=== PATIENT | male | born 1990 | race Caucasian/White ===

== ENCOUNTER 2021-12-06 15:24 | Inpatient (IN) ==
[2021-12-06 16:03] LABS: Basophils # (auto) 0.02 K/uL (0-0.2); Basophils % (auto) 0.4 %; Eosinophils # (auto) 0.02 K/uL (0-0.5); Eosinophils % (auto) 0.4 %; Hemoglobin 14.9 g/dL (14.0-18.0); Immature Granulocytes # (auto) 0.02 K/uL (0.00-0.02); Immature Granulocytes % (auto) 0.4 %; Lymphocytes # (auto) 0.77 K/uL (1.2-3.4); Lymphocytes % (auto) 13.5 %; Mean Corpuscular Hemoglobin 30.9 pg (25-34); Mean Corpuscular Hgb Conc 33.9 g/dL (32-36); Mean Corpuscular Volume 91.3 fL (80-100); Mean Platelet Volume 11.1 fL (7.4-10.4); Monocytes # (auto) 0.66 K/uL (0.11-0.59); Monocytes % (auto) 11.6 %; Neutrophils # (auto) 4.21 K/uL (1.4-6.5); Neutrophils % (auto) 73.7 %; Platelet Count 260 K/uL (130-400); RDW Coefficient of Variation 13.6 % (11.5-14.5); RDW Standard Deviation 45.4 fL (36.4-46.3); Red Blood Count 4.82 M/uL (4.7-6.1)
[2021-12-06] MEDS ORDERED: SODIUM CHLORIDE 0.9% 1000ML 1,000 ML IV ONE (16:13)
[2021-12-06 16:14] LABS: INR 1.2 (0.9-1.1); Partial Thromboplastin Ratio 1.2; Partial Thromboplastin Time 32.2 Seconds (21.0-31.0); Prothrombin Time 12.4 Seconds (9.0-12.0)
--- NOTE | 2021-12-06 16:23 | Emergency Department Note ---
Impression & Plan Precordial chest pain, Pericarditis, Tachycardia, Elevated liver enzymes ED Provider Note NAME: ANDERSON MEZA AGE: 31 SEX: M : 1990 ARRIVES VIA: Walk-In INFORMANT: [Patient][family] ED PROVIDER(S): [Silvio Smith MD] CHIEF COMPLAINT: Chest pain HISTORY OF PRESENT ILLNESS: Patient is a 31-year-old male who presents to the ER with about 20 to 21 hours of upper central chest pain that radiates to his neck. It is a tightness that is maybe a 4 on a scale 1 out of 10. He initially thought it was heartburn but its been constant and has not improved. He notices worsening of the pain to bend over or if he takes a deep breath. He is not short of breath. There has been no cough or congestion. No fever. No vomiting or diarrhea. The patient does have sclerosing cholangitis. He is scheduled to have his bile ducts dilated in about 3 weeks. The patient states he has noticed some mild jaundice, this happens when his ducts are due to be dilated. Patient has no history of DVT or PE, there has been no long travel by plane or train or car. He has no history personally of reflux however, his family has a history of reflux. The patient took a home COVID test this morning, it was negative. REVIEW OF SYSTEMS: See HPI for pertinent positives and negatives. A total of ten systems were reviewed and were otherwise negative. PMHx/PSHx: See Below SOCIAL HISTORY: See Below. PHYSICAL EXAM: GENERAL: Patient is in no acute distress. HEENT: No acute trauma, normocephalic atraumatic, mucous membranes moist, no nasal congestion. NECK: No stridor, no adenopathy, no meningismus, trachea is midline. LUNGS: Clear to auscultation bilaterally, no wheeze, no rhonchi, breath sounds equal. HEART: Tachycardic, regular rhythm, no murmurs. Chest: Nontender chest wall ABDOMEN: Soft, nontender, bowel sounds positive, no peritonitis. EXTREMITIES: No cyanosis or edema, full range of motion of all the joints without pain or difficulty, no signs for acute trauma. NEUROLOGIC: Oriented x 3, no acute motor or sensory deficits, no focal weakness. SKIN: No rash, mild jaundice, no diaphoresis. DIFFERENTIAL DIAGNOSIS: Cardiac ischemia, aortic dissection, pulmonary embolism, pneumothorax, pneumonia, pericarditis, myocarditis, esophageal rupture, GERD, cholecystitis, pancreatitis, musculoskeletal, as well as other pathologies. EMERGENCY DEPARTMENT COURSE/PROCEDURES: ECG: Indication was chest pain. The ECG shows a sinus tachycardia with a rate of 136. There is some nonspecific ST change likely from the faster rate. I do believe there is some OH depression. No PVCs. The QTc is 427 Continuous Cardiac Monitoring: An order was placed for continuous cardiac monit oring. The monitor shows a rate of 136 with sinus tachycardia. Critical Care Note: I have personally spent 48 minutes of critical care time in the direct management of this patient. This includes bedside care, interpretation of diagnostic studies, and testing, discussion with consultants, patient, and family members, and other required patient management activities. This 48 minutes is in excess of all separately billable procedures. MEDICAL DECISION MAKING: There is no leukocytosis or worrisome anemia. There is a normal platelet count. Sed rate is high at 65. CRP is elevated. INR is slightly high at 1.2. No renal failure. No significant electrolyte abnormality. Liver enzymes are elevated consistent with his sclerosing cholangitis diagnosis. ECG shows a sinus tachycardia, there is diffuse OH depression consistent with potential pericarditis. Cardiac enzyme testing x1 is not consistent with acute cardiac injury. No evidence for pancreatitis. No evidence for thyroid dysfunction. COVID test was negative. Chest film did not show pneumonia, CHF or cardiomegaly. Chest CT does not show PE, aortic dissection or pericardial effusion. On exam, the patient was tachycardic, his chest pain was not reproducible. Patient received IV saline, 1 L. He has been resting comfortably. I discussed the case with cardiology on-call, Dr. Armenta. The patient is being hospitalized for further work-up. Dr. Armenta did see the patient here in the ED. I spoke with the patient and the family. Further testing and care in the hospital is warranted. I did speak with case management, the on-call hospitalist was consulted. Past Med/Surg History Medical History Back pain Diarrhea Elevated LFTs Fecal urgency Frequent bowel movements Osteoporosis PSC (primary sclerosing cholangitis) Ulcerative colitis Unintentional weight loss Surgical History History of cholecystectomy History of colonoscopy History of ERCP History of esophagogastroduodenoscopy (EGD) History of oral surgery bone graft with dental implant History of wisdom tooth extraction Family History Grandmother Diabetes Other No family history of adverse response to anesthesia Social History Smoking Status: Never smoker Second Hand Exposure: No; Hx Alcohol Use: No Hx Substance Use: No Preferred Language: Kenyan Communication Ability: Effective Office Services Manager Required: No Beliefs That Will Affect Care: None Current Living Situation: Family Feels Safe at Home: Yes Assistive Devices: None Allergies Allergies Allergy/AdvReac Type Severity Reaction Status Date / Time No Known Allergies Allergy Verified 12/06/21 15:56 Home Meds Home Medications Medication Instructions Recorded Confirmed cetirizine 10 mg tablet 10 mg PO QAM 10/17/20 12/06/21 adalimumab 40 mg/0.8 mL 40 mg SUBCUT DIRECTED 01/05/21 12/06/21 subcutaneous pen kit (Humira Pen) cholecalciferol (vitamin D3) 125 125 mcg PO WK 01/05/21 12/06/21 mcg (5,000 unit) tablet (Vitamin D3) ursodiol 250 mg tablet 250 mg PO BID 01/05/21 12/06/21 Calcium 600 600 mg PO QAM 12/06/21 12/06/21 Results & Data (ED) Vital Signs Vital Signs - 24 hr 12/06/21 15:26 12/06/21 15:37 12/06/21 16:01 Temperature 37.4 C Temperature Source Temporal Artery Scan Pulse Rate 140 H 125 H Respiratory Rate 16 18 Respiratory Effort / Characteristics Non-Labored Spontaneous Accessory Muscle Use Respiratory Depth Normal Blood Pressure 125/79 163/94 H Blood Pressure Mean 94 117 Pulse Oximetry 97 98 Oxygen Delivery Method Room Air Room Air Sepsis Recent Fever Within 48 Hours No Sepsis New/Unexplained Change in Mental Status No Sepsis Action Taken by Nursing No Action Required 12/06/21 16:30 12/06/21 17:00 12/06/21 18:00 Temperature Temperature Source Pulse Rate 116 H 116 H 119 H Respiratory Rate 17 15 Respiratory Effort / Characteristics Respiratory Depth Blood Pressure 120/81 121/80 Blood Pressure Mean 94 93 Pulse Oximetry 95 98 99 Oxygen Delivery Method Sepsis Recent Fever Within 48 Hours Sepsis New/Unexplained Change in Mental Status Sepsis Action Taken by Nursing 12/06/21 18:32 12/06/21 18:40 Temperature Temperature Source Pulse Rate 128 H 124 H Respiratory Rate 16 Respiratory Effort / Characteristics Respiratory Depth Blood Pressure 126/86 Blood Pressure Mean 150 99 Pulse Oximetry 98 98 Oxygen Delivery Method Room Air Sepsis Recent Fever Within 48 Hours Sepsis New/Unexplained Change in Mental Status Sepsis Action Taken by [facility] Medications Current Medication List: was personally reviewed by me Laboratory Data Attestation: I reviewed the patient's lab results. Result diagrams: 12/06/21 15:45 12/06/21 15:45 Lab Results 12/06/21 12/06/21 12/06/21 Range/Units 15:45 15:45 15:45 WBC 5.70 (4.8-10.8) K/uL RBC 4.82 (4.7-6.1) M/uL Hgb 14.9 (14.0-18.0) g/dL Hct 44.0 (42-52) % MCV 91.3 (80-100) fL MCH 30.9 (25-34) pg MCHC 33.9 (32-36) g/dL RDW Std Deviation 45.4 (36.4-46.3) fL RDW Coeff of Farzana 13.6 (11.5-14.5) % Plt Count 260 (130-400) K/uL MPV 11.1 H (7.4-10.4) fL Immature Gran % (Auto) 0.4 % Neut % (Auto) 73.7 % Lymph % (Auto) 13.5 % Elliott % (Auto) 11.6 % Eos % (Auto) 0.4 % Baso % (Auto) 0.4 % Neut # (Auto) 4.21 (1.4-6.5) K/uL Lymph # (Auto) 0.77 L (1.2-3.4) K/uL Elliott # (Auto) 0.66 H (0.11-0.59) K/uL Eos # (Auto) 0.02 (0-0.5) K/uL Baso # (Auto) 0.02 (0-0.2) K/uL Immature Gran # (Auto) 0.02 (0.00-0.02) K/uL ESR (0-15) mm/hr PT 12.4 H (9.0-12.0) Seconds INR 1.2 H (0.9-1.1) APTT 32.2 H (21.0-31.0) Seconds PTT Ratio 1.2 Sodium 136 (136-145) mmol/L Potassium 3.5 (3.5-5.1) mmol/L Chloride 99 (98-107) mmol/L Carbon Dioxide 27 (21-32) mmol/L Anion Gap 10 (3-11) BUN 10 (6-23) mg/dl Creatinine 0.90 (0.6-1.4) mg/dl Est Cr Clr Drug Dosing 110.2 ml/min Est GFR ( Amer) 130.5 ml/min Est GFR (Non-Af Amer) 112.6 ml/min BUN/Creatinine Ratio 11.1 (10-20) Glucose 84 (70-99(Fasting)) mg/dl Calcium 10.2 H (8.5-10.1) mg/dl Magnesium (1.7-2.4) mg/dl Total Bilirubin 2.9 H (0.2-1.0) mg/dl AST 128 H (13-39) U/L ALT 188 H (7-52) U/L Alkaline Phosphatase 671 H (34-104) U/L Troponin I High Sens 8.1 (0-20) pg/ml C-Reactive Protein (0-0.5) mg/dl Total Protein 9.0 H (6.0-8.3) gm/dl Albumin 4.4 (3.4-5.0) gm/dl Globulin 4.6 H (2.5-4.0) gm/dl Albumin/Globulin Ratio 1.0 (0.9-2) Lipase (11-82) U/L TSH (0.300-4.500) uIu/ml SARS-CoV-2, RNA, NAAT (NEGATIVE) 12/06/21 12/06/21 12/06/21 Range/Units 15:45 15:45 15:45 WBC (4.8-10.8) K/uL RBC (4.7-6.1) M/uL Hgb (14.0-18.0) g/dL Hct (42-52) % MCV (80-100) fL MCH (25-34) pg MCHC (32-36) g/dL RDW Std Deviation (36.4-46.3) fL RDW Coeff of Farzana (11.5-14.5) % Plt Count (130-400) K/uL MPV (7.4-10.4) fL Immature Gran % (Auto) % Neut % (Auto) % Lymph % (Auto) % Elliott % (Auto) % Eos % (Auto) % Baso % (Auto) % Neut # (Auto) (1.4-6.5) K/uL Lymph # (Auto) (1.2-3.4) K/uL Elliott # (Auto) (0.11-0.59) K/uL Eos # (Auto) (0-0.5) K/uL Baso # (Auto) (0-0.2) K/uL Immature Gran # (Auto) (0.00-0.02) K/uL ESR 65 H (0-15) mm/hr PT (9.0-12.0) Seconds INR (0.9-1.1) APTT (21.0-31.0) Seconds PTT Ratio Sodium (136-145) mmol/L Potassium (3.5-5.1) mmol/L Chloride (98-107) mmol/L Carbon Dioxide (21-32) mmol/L Anion Gap (3-11) BUN (6-23) mg/dl Creatinine (0.6-1.4) mg/dl Est Cr Clr Drug Dosing ml/min Est GFR ( Amer) ml/min Est GFR (Non-Af Amer) ml/min BUN/Creatinine Ratio (10-20) Glucose (70-99(Fasting)) mg/dl Calcium (8.5-10.1) mg/dl Magnesium 2.0 (1.7-2.4) mg/dl Total Bilirubin (0.2-1.0) mg/dl AST (13-39) U/L ALT (7-52) U/L Alkaline Phosphatase (34-104) U/L Troponin I High Sens (0-20) pg/ml C-Reactive Protein 4.77 H (0-0.5) mg/dl Total Protein (6.0-8.3) gm/dl Albumin (3.4-5.0) gm/dl Globulin (2.5-4.0) gm/dl Albumin/Globulin Ratio (0.9-2) Lipase 12 (11-82) U/L TSH 1.605 (0.300-4.500) uIu/ml SARS-CoV-2, RNA, NAAT (NEGATIVE) 12/06/21 Range/Units 16:45 WBC (4.8-10.8) K/uL RBC (4.7-6.1) M/uL Hgb (14.0-18.0) g/dL Hct (42-52) % MCV (80-100) fL MCH (25-34) pg MCHC (32-36) g/dL RDW Std Deviation (36.4-46.3) fL RDW Coeff of Farzana (11.5-14.5) % Plt Count (130-400) K/uL MPV (7.4-10.4) fL Immature Gran % (Auto) % Neut % (Auto) % Lymph % (Auto) % Elliott % (Auto) % Eos % (Auto) % Baso % (Auto) % Neut # (Auto) (1.4-6.5) K/uL Lymph # (Auto) (1.2-3.4) K/uL Elliott # (Auto) (0.11-0.59) K/uL Eos # (Auto) (0-0.5) K/uL Baso # (Auto) (0-0.2) K/uL Immature Gran # (Auto) (0.00-0.02) K/uL ESR (0-15) mm/hr PT (9.0-12.0) Seconds INR (0.9-1.1) APTT (21.0-31.0) Seconds PTT Ratio Sodium (136-145) mmol/L Potassium (3.5-5.1) mmol/L Chloride (98-107) mmol/L Carbon Dioxide (21-32) mmol/L Anion Gap (3-11) BUN (6-23) mg/dl Creatinine (0.6-1.4) mg/dl Est Cr Clr Drug Dosing ml/min Est GFR ( Amer) ml/min Est GFR (Non-Af Amer) ml/min BUN/Creatinine Ratio (10-20) Glucose (70-99(Fasting)) mg/dl Calcium (8.5-10.1) mg/dl Magnesium (1.7-2.4) mg/dl Total Bilirubin (0.2-1.0) mg/dl AST (13-39) U/L ALT (7-52) U/L Alkaline Phosphatase (34-104) U/L Troponin I High Sens (0-20) pg/ml C-Reactive Protein (0-0.5) mg/dl Total Protein (6.0-8.3) gm/dl Albumin (3.4-5.0) gm/dl Globulin (2.5-4.0) gm/dl Albumin/Globulin Ratio (0.9-2) Lipase (11-82) U/L TSH (0.300-4.500) uIu/ml SARS-CoV-2, RNA, NAAT NEGATIVE (NEGATIVE) Administered Medications Discontinued Medications Sodium Chloride (Nss 1000ml) 1,000 mls @ 999 mls/hr IV .Q1H1M ONE Stop: 12/06/21 17:13 Last Infusion: 12/06/21 17:23 Dose: 0 mls/hr Documented by: [id number] Admin: 12/06/21 16:22 Dose: 999 mls/hr Documented by: [id number] Ioversol (Optiray 320 125ml) 120 ml IV ONCE ONE Stop: 12/06/21 16:41 Last Admin: 12/06/21 16:42 Dose: 120 ml Documented by: [id number] Methylprednisolone (Methylprednisolone 125 Mg/2 Ml Vial) 60 mg IV NOW STA Stop: 12/06/21 18:47 Last Admin: 12/06/21 18:54 Dose: 60 mg Documented by: [id number] Imaging Data Radiologist's Impression: Chest X-Ray 12/06/21 15:50 SINGLE VIEW CHEST CLINICAL HISTORY: Atypical chest pain. FINDINGS: An AP, portable, upright chest radiograph is obtained. No prior studies are available for comparison at the time of dictation. The cardiomedi astinal silhouette is unremarkable. The lungs and pleural spaces are clear. No pneumothorax is seen. The bony thorax is grossly intact. Cholecystectomy clips are noted in the right upper quadrant. IMPRESSION: No active disease in the chest. ACT 112: Negative or not required by law. Electronically signed by: Silvio Moore M.D. 12/06/2021 4:39 PM Chest CTA 12/06/21 16:13 CT ANGIOGRAM OF THE CHEST CLINICAL HISTORY: Atypical chest pain. COMPARISON STUDY: Chest x-ray performed the same day 12/06/2021. TECHNIQUE: Following the IV administration of 120 cc of Optiray 320, CT angiogram of the chest was performed from the upper abdomen to the thoracic inlet utilizing the pulmonary embolus protocol. Images are reviewed in the axial, sagittal, and coronal planes. 3-D MIPS images are created and assessed. IV contrast was administered without complication. A dose lowering technique was utilized adhering to the principles of ALARA. CT DOSE: 257.19 mGy.cm FINDINGS: Thyroid: Imaged portions of the thyroid gland are normal in size and attenuation . Thoracic aorta: The thoracic aorta is normal in caliber and demonstrates standard 3-vessel arch anatomy. No dissection is seen. Pulmonary vasculature: The pulmonary trunk is normal in caliber. There are no filling defects identified in main, lobar, or segmental pulmonary branches to suggest pulmonary embolus. Heart: The heart is normal in size and without pericardial effusion. Lungs and pleural spaces: The lungs and pleural spaces are clear. Mediastinum: There is no mediastinal lymphadenopathy. Valentina: Clear. Axillae: There is no axillary lymphadenopathy. Upper abdomen: Partially visualized upper abdominal viscera is within normal limits. Skeletal structures: There is a minimal chronic appearing superior endplate compression deformity of T7. No lytic or blastic bony lesions are seen. IMPRESSION: 1. There is no evidence of pulmonary embolus in the main, lobar, or segmental pulmonary arteries. 2. The lungs are clear. ACT 112: Negative or not required by law. Electronically signed by: Silvio Moore M.D. 12/06/2021 5:05 PM Discharge Plan Visit Data Chief Complaint: Chest Pain Stated Complaint: CHEST PAIN, TIGHT CHEST ED Provider: Silvio Smith Discharge Problem: Precordial chest pain, Pericarditis, Tachycardia, Elevated liver enzymes Patient Disposition: Admitted As Inpatient Condition: Fair Forms Stand Alone Forms: [facility] [place] [employer] Prescriptions Prescriptions: No Action cetirizine 10 mg Tablet 10 mg PO QAM RF: 0 Calcium 600 600 MG 600 mg PO QAM RF: 0 ursodiol 250 mg Tablet 250 mg PO BID RF: 0 Humira Pen 40 mg/0.8 mL Pen Injector Kit 40 mg SUBCUT DIRECTED RF: 0 cholecalciferol (vitamin D3) [Vitamin D3] 125 mcg (5,000 unit) Tablet 125 mcg PO WK RF: 0 Referrals Referrals: Michael Branch DO [Primary Care Provider] -
[2021-12-06 16:26] LABS: Albumin Level 4.4 gm/dl (3.4-5.0); BUN Creatinine Ratio 11.1 (10-20); Bilirubin,Total 2.9 mg/dl (0.2-1.0); Calcium 10.2 mg/dl (8.5-10.1); Creatinine Clr Calc Pharmacy 110.2 ml/min; Est GFR (African American) 130.5 ml/min; Est GFR (Non-African American) 112.6 ml/min; Globulin 4.6 gm/dl (2.5-4.0); Potassium 3.5 mmol/L (3.5-5.1)
[2021-12-06 16:29] LABS: Troponin I High Sensitivity 8.1 pg/ml (0-20)
[2021-12-06] MEDS ORDERED: OPTIRAY 320 125ml IV ONE (16:40)
--- NOTE | 2021-12-06 16:41 | XRay Report ---
SINGLE VIEW CHEST CLINICAL HISTORY: Atypical chest pain. FINDINGS: An AP, portable, upright chest radiograph is obtained. No prior studies are available for c omparison at the time of dictation. The cardiomediastinal silhouette is unremarkable. The lungs and pleural spaces are clear. No pneumothorax is seen. The bony thorax is grossly intact. Cholecystectomy clips are noted in the right upper quadrant. IMPRESSION: No active disease in the chest. ACT 112: Negative or not required by law. Electronically signed by: Silvio Moore M.D. 12/06/2021 4:39 PM
[2021-12-06 17:01] LABS: C Reactive Protein 4.77 mg/dl (0-0.5)
--- NOTE | 2021-12-06 17:08 | CT Scan Report ---
CT ANGIOGRAM OF THE CHEST CLINICAL HISTORY: Atypical chest pain. COMPARISON STUDY: Chest x-ray performed the same day 12/06/2021. TECHNIQUE: Following the IV administration of 120 cc of Optiray 320, CT angiogram of the chest was pe rformed from the upper abdomen to the thoracic inlet utilizing the pulmonary embolus protocol. Images are reviewed in the axial, sagittal, and coronal planes. 3-D MIPS images are created and assessed. I V contrast was administered without complication. A dose lowering technique was utilized adhering to the principles of ALARA. CT DOSE: 257.19 mGy.cm FINDINGS: Thyroid: Imaged portions of the thyroid gland are normal in size and attenuation. Thoracic aorta: The thoracic aorta is normal in caliber and demonstrates standard 3-vessel arch anato my. No dissection is seen. Pulmonary vasculature: The pulmonary trunk is normal in caliber. There are no filling defects identif ied in main, lobar, or segmental pulmonary branches to suggest pulmonary embolus. Heart: The heart is normal in size and without pericardial effusion. Lungs and pleural spaces: The lungs and pleural spaces are clear. Mediastinum: There is no mediastinal lymphadenopathy. Valentina: Clear. Axillae: There is no axillary lymphadenopathy. Upper abdomen: Partially visualized upper abdominal viscera is within normal limits. Skeletal structures: There is a minimal chronic appearing superior endplate compression deformity of T7. No lytic or blastic bony lesions are seen. IMPRESSION: 1. There is no evidence of pulmonary embolus in the main, lobar, or segmental pulmonary arteries. 2. The lungs are clear. ACT 112: Negative or not required by law. Electronically signed by: Silvio Moore M.D. 12/06/2021 5:05 PM
[2021-12-06] MEDS ORDERED: methylPREDNISolone 125 MG/2 ML VIAL IV STA (18:46)
--- NOTE | 2021-12-06 19:09 | Cardiology Consultation ---
Date of Consultation December 06, 2021 Assessment & Plan (1) Pericarditis: (2) PSC (primary sclerosing cholangitis): -Patient's underlying history of primary sclerosing cholangitis makes him a poor candidate for nonsteroidal anti-inflammatory use or high-dose aspirin use. We will therefore proceed with corticosteroids, starting with methylprednisolone 60 mg IV now. Would proceed with prednisone 40 mg starting tomorrow 12/07/2021, as well as Protonix for GI prophylaxis. Caution recommended with regards to dosing colchicine in the setting of hepatic dysfunction. I think however it be most prudent to await GI input prior to starting this medication, I would recommend gastroenterology consultation tomorrow as his liver function tests are higher than typical baseline for him. Proceed with echocardiogram. Would repeat his EKG once his heart rate improves for further anaylysis of the ST segments. History of Present Illness History of Present Illness Abelino Jara is a 31 year old male seen in cardiology consultation per the request of Dr Smith for the evaluation of chest discomfort. Pt seen in ED room B5. He is accompanied by his father, Kali. Abelino has a history of ulcerative colitis and primary sclerosing cholangitis for which he follows with Dr. Bello of [facility]. His medications include Hurmira. His most recent ERCP had been on 01/16/21 in which time a biliary sphincterotomy had been performed as well as dilatation of the common bile duct and the hepatic ducts. The patient was in his normal state of health until last evening at approximately 7 or 8 PM when he started noticing chest tightness, worse with deep inspiration and with lying flat. He had difficulty finding any position that was comfortable for sleeping. His symptoms persisted all day today, ultimately prompting presentation to the emergency room. EKG performed at 1537 revealed sinus tachycardia 136 bpm, with diffuse J-point elevation consistent with possible early repolarization or pericarditis. The ST segments are somewhat difficult to interpret due to the underlying sinus tachycardia. At bedtime troponin within normal limits x1. CT angiogram revealed no evidence of pulmonary embolism. No pericardial effusion. Laboratory assessment otherwise notable for elevated ESR at 65 mm/h, C-reactive protein 4.77 mg/dL total bilirubin 1.9, AST 128, ALT 188, alkaline phosphatase 671. MRI of the liver had been performed earlier this month as an outpatient 11/12/2021 with stable findings with beaded appearance of the intrahepatic biliary ducts abdominal lymphadenopathy noted, and patient is tentatively scheduled to undergo upcoming colonoscopy and ultrasound-guided lymph node biopsy. At the time my assessment, the patient was in no acute distress, chest discomfort rating to the base of the neck reproduced on physical exam with deep inspiration. Allergies Allergy/AdvReac Type Severity Reaction Status Date / Time No Known Allergies Allergy Verified 12/06/21 15:56 Home Medications Medication Instructions Recorded Confirmed Type cetirizine 10 mg tablet 10 mg PO QAM 10/17/20 12/06/21 History adalimumab 40 mg/0.8 mL 40 mg SUBCUT DIRECTED 01/05/21 12/06/21 History subcutaneous pen kit (Humira Pen) cholecalciferol (vitamin D3) 125 125 mcg PO WK 01/05/21 12/06/21 History mcg (5,000 unit) tablet (Vitamin D3) ursodiol 250 mg tablet 250 mg PO BID 01/05/21 12/06/21 History Calcium 600 600 mg PO QAM 12/06/21 12/06/21 History Patient History Medical History (Updated 12/06/21 @ 19:06 by John Armenta DO) Back pain Diarrhea Elevated LFTs Fecal urgency Frequent bowel movements Osteoporosis PSC (primary sclerosing cholangitis) Ulcerative colitis Unintentional weight loss Surgical History History of cholecystectomy History of colonoscopy History of ERCP History of esophagogastroduodenoscopy (EGD) History of oral surgery bone graft with dental implant History of wisdom tooth extraction Family History Grandmother Diabetes Other No family history of adverse response to anesthesia Social History Smoking Status: Never smoker Second Hand Exposure: No; Hx Alcohol Use: No Hx Substance Use: No Preferred Language: Icelandic Communication Ability: Effective Grinding Room Inspector Required: No Beliefs That Will Affect Care: None Current Living Situation: Family Feels Safe at Home: Yes Assistive Devices: None Review of Systems Review of Systems: All systems reviewed & are unremarkable except as noted in HPI & below Physical Exam Constitutional: WD/WN, vitals as above Respiratory: normal respiratory effort, lungs clear to auscultation Cardiovascular: RRR, no murmur, no edema Gastrointestinal (Abdomen): normal bowel sounds, soft, nontender, no hepatosplenomegaly Skin: + jaundice Neurologic: PERRL, EOMI, accommodation nl, no face palsy, no dysarthria Results & Data ([facility]) Vital Signs (Past 12 Hours) Vital Signs Temp Pulse Resp BP Pulse Ox 12/06/21 18:40 124 H 16 126/86 98 12/06/21 18:32 128 H 98 12/06/21 18:00 119 H 99 12/06/21 17:00 116 H 15 121/80 98 12/06/21 16:30 116 H 17 120/81 95 12/06/21 16:01 125 H 18 163/94 H 98 12/06/21 15:26 37.4 C 140 H 16 125/79 97
--- NOTE | 2021-12-06 19:11 | History & Physical Report ---
Date of Service December 06, 2021 Assessment & Plan (1) Pericarditis: (2) Elevated LFTs: (3) PSC (primary sclerosing cholangitis): Plan: #. Likely pericarditis in immunosuppressed patient Patient presents with acute onset of chest pain for less than 24 hours prior to arrival. Chest pain sharp in nature with deep breathing and bending forward. Has been constant since onset. 5/10 in intensity. Patient denies any respiratory signs and symptoms recently, patient not aware of any tick bite, no new skin rashes, has been vaccinated against COVID, has been diagnosed with UC and PSC less than a year ago. Admitting CTA chest and CXR with no acute findings. Admitting troponin negative. Admitting EKG with diffuse [place] depression. Cardiology aware, steroid. ECHO. CRP in AM. Patient tachycardic, other vitals normal, continue to monitor over telemetry. GI protection with PPI for the duration of steroid. #. Elevated LFTs #. History of ulcerative colitis #. History of PSC Patient due for ERCP and bile duct dilatation in 3 weeks, follows [facility] gastroenterology Patient reports increasing yellowing lately. Also reports increasing itching. Consult GI, trend CMP. Given diarrheal component from UC, and liver impairment from PSC, colchicine will be best avoided in this case. 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 Per patient, his chest tightness/pain started less than 24 hours ago prior to arrival, has been constant, is sharper in nature when taking deep breath or bending forward, 5/10 at rest and 6/10 with deep breathing/bending over, not associated with fever/diaphoresis/radiation to back, not relieved with Tums, pain spans from lower part of sternum to base of neck anteriorly and patient was not able to sleep due to this pain. Patient denies any runny nose or cough or sore throat or myalgia recently. Patient denies any new skin rashes or awareness of tick bite. Patient denies fever/headache/dizziness/belly pain/SOB. Patient denies any pain or burning while passing urine. Patient does have bowel disturbances because of his ulcerative colitis. Patient is due for ERCP and biliary dilation in 3 weeks, patient follows [facility] gastroenterology. Patient does look icteric, per patient he usually gets icteric when he is due for his bile duct dilatation. Patient also reports worsening itching. Patient denies the use of tobacco/smoking, alcohol/recreational drugs. Patient is referred answer and has [employer] store. Full code. Home medications reviewed with patient, takes Humira biweekly, ursodiol 500 mg in the morning and 250 mg in the evening, calcium and vitamin d tablets, and Zyrtec. Pt is vaccinated against covid, three doses. Patient denies any significant cardiac history in the family, endorses GERD in sister and father, had his grandmom of lung cancer. Allergies Allergy/AdvReac Type Severity Reaction Status Date / Time No Known Allergies Allergy Verified 12/06/21 15:56 Home Medications Medication Instructions Recorded Confirmed Type cetirizine 10 mg tablet 10 mg PO QAM 10/17/20 12/06/21 History adalimumab 40 mg/0.8 mL 40 mg SUBCUT DIRECTED 01/05/21 12/06/21 History subcutaneous pen kit (Humira Pen) cholecalciferol (vitamin D3) 125 125 mcg PO WK 01/05/21 12/06/21 History mcg (5,000 unit) tablet (Vitamin D3) ursodiol 250 mg tablet 250 mg PO BID 01/05/21 12/06/21 History Calcium 600 600 mg PO QAM 12/06/21 12/06/21 History Past Med/Surg History Medical History Back pain Diarrhea Elevated LFTs Fecal urgency Frequent bowel movements Osteoporosis PSC (primary sclerosing cholangitis) Ulcerative colitis Unintentional weight loss Surgical History History of cholecystectomy History of colonoscopy History of ERCP History of esophagogastroduodenoscopy (EGD) History of oral surgery bone graft with dental implant History of wisdom tooth extraction Family History Grandmother Diabetes Other No family history of adverse response to anesthesia Social History Smoking Status: Never smoker Second Hand Exposure: No; Hx Alcohol Use: No Hx Substance Use: No Preferred Language: Japanese Communication Ability: Effective 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 Physical Exam Physical Exam: GENERAL: Alert and oriented x3. NAD, on RA. HEENT: No pallor, + icterus. Pupils equal, round and reactive to light. Oral mucosa moist. NECK: No JVD, no neck masses. HEART: S1 and S2 heard. Tachycardic. No murmur, no gallop. RESPIRATORY SYSTEM: Normal AP diameter. No accessory muscle use. No wheezing, no crackles. ABDOMEN: Soft, bowel sounds present, nontender, no distention. CENTRAL NERVOUS SYSTEM: No facial droop. Speech is clear. Obeys simple comman ds. Moves extremities. EXTREMITIES: No edema, no erythema seen. Results & Data Results & Data ([facility]) Vital Signs (Past 12 Hours) Vital Signs Temp Pulse Resp BP Pulse Ox 12/06/21 18:40 124 H 16 126/86 98 12/06/21 18:32 128 H 98 12/06/21 18:00 119 H 99 12/06/21 17:00 116 H 15 121/80 98 12/06/21 16:30 116 H 17 120/81 95 12/06/21 16:01 125 H 18 163/94 H 98 12/06/21 15:26 37.4 C 140 H 16 125/79 97
[2021-12-06] MEDS ORDERED: PANTOprazole 40 MG TAB PO ONE (21:15)
[2021-12-07] MEDS: ursodioL 300 MG CAP PO SCH ×3 (01:18→20:44)
[2021-12-07] MEDS: HEPARIN SOD 5,000 UNIT/0.5 ML VIAL SQ SCH ×3 (01:19→20:44)
--- NOTE | 2021-12-07 06:32 | Electrocardiogram Report ---
Test Reason : Blood Pressure : / mmHG Vent. Rate : 136 BPM Atrial Rate : 136 BPM P-R Int : 148 ms QRS Dur : 080 ms QT Int : 284 ms P-R-T Axes : 066 077 066 degrees QTc Int : 427 ms Sinus tachycardia Borderline ECG No previous ECGs available Confirmed by Antonino Fong ([id number]) on 12/07/2021 6:32:19 AM Referred By: Sangeeta Bello Confirmed By:Antonino Fong
[2021-12-07 08:20] LABS: Hematocrit (blood only) 40.3 % (42-52); Hemoglobin 13.6 g/dL (14.0-18.0); Mean Corpuscular Hemoglobin 30.5 pg (25-34); Mean Corpuscular Hgb Conc 33.7 g/dL (32-36); Mean Corpuscular Volume 90.4 fL (80-100); Mean Platelet Volume 10.8 fL (7.4-10.4); Platelet Count 226 K/uL (130-400); RDW Coefficient of Variation 13.6 % (11.5-14.5); RDW Standard Deviation 45.2 fL (36.4-46.3); Red Blood Count 4.46 M/uL (4.7-6.1); White Blood Count 5.95 K/uL (4.8-10.8)
[2021-12-07] MEDS: CETIRIZINE HCL 10 MG TABLET PO SCH (08:46)
[2021-12-07] MEDS: CALCIUM CARBONATE 1250MG TAB PO SCH (08:46)
[2021-12-07] MEDS: predniSONE 20 MG TAB PO SCH (08:46)
[2021-12-07] MEDS: PANTOprazole 40 MG TAB PO SCH ×2 (08:47→20:42)
[2021-12-07 08:51] LABS: Alanine Aminotransferase 166 U/L (7-52); Albumin Globulin Ratio 0.9 (0.9-2); Albumin Level 3.9 gm/dl (3.4-5.0); Alkaline Phosphatase 598 U/L (34-104); Anion Gap 10 (3-11); Aspartate Aminotransferase 99 U/L (13-39); BUN Creatinine Ratio 17.5 (10-20); Bilirubin,Total 2.1 mg/dl (0.2-1.0); Blood Urea Nitrogen 11 mg/dl (6-23); C Reactive Protein 9.26 mg/dl (0-0.5); Calcium 9.6 mg/dl (8.5-10.1); Carbon Dioxide 24 mmol/L (21-32); Chloride 104 mmol/L (98-107); Creatinine Clr Calc Pharmacy 157.1 ml/min; Est GFR (African American) > 150.0 ml/min; Est GFR (Non-African American) 130.4 ml/min; Globulin 4.2 gm/dl (2.5-4.0); Glucose 124 mg/dl (70-99(Fasting)); Magnesium 1.9 mg/dl (1.7-2.4); Phosphorus 2.9 mg/dl (2.5-4.9); Potassium 3.7 mmol/L (3.5-5.1); Sodium 138 mmol/L (136-145); Total Protein 8.1 gm/dl (6.0-8.3)
--- NOTE | 2021-12-07 10:20 | Gastrointestinal Consultation ---
Date of Consultation December 07, 2021 Assessment & Plan (1) Elevated liver enzymes: Patient with a mild elevation of his liver enzymes as compared to baseline given his underlying primary sclerosing cholangitis. I would suggest further evaluation with MRCP, we will likely recommend a delayed ERCP once his pericarditis has resolved as there does not appear to be an urgent need for biliary decompression at the present time. Recommendations MRCP ordered Likely outpatient ERCP once pericarditis is resolved If MRCP negative for evidence of stricturing would then recommend other studies such as autoimmune markers and viral serologies (2) PSC (primary sclerosing cholangitis): History of Present Illness Reason for Consultation: Elevated liver tests Requesting Physician: Dr. Butler Attending Physician: Oswald Butler MD History of Present Illness The patient is a 31-year-old male with a history of ulcerative colitis and primary sclerosing cholangitis who was admitted through the emergency room after presenting with complications related to pericarditis. The patient reports that he has had difficulty with deep inspiration for several days in addition to chest discomfort. He notes that since being started on steroids for the pericarditis his symptoms are slowly improving. Patient's history of PSC dates approximately 1 year, he is undergone several ERCPs last of which was performed about 1 year ago at which time dilation was performed of the distal common bile duct left intrahepatic and right intrahepatic ducts. Denies having abdominal pain, nausea, vomiting, pruritus or alteration in his bowel habits. Allergies Allergy/AdvReac Type Severity Reaction Status Date / Time No Known Allergies Allergy Verified 12/06/21 15:56 Home Medications Medication Instructions Recorded Confirmed Type cetirizine 10 mg tablet 10 mg PO QAM 10/17/20 12/06/21 History adalimumab 40 mg/0.8 mL 40 mg SUBCUT DIRECTED 01/05/21 12/06/21 History subcutaneous pen kit (Humira Pen) cholecalciferol (vitamin D3) 125 125 mcg PO WK 01/05/21 12/06/21 History mcg (5,000 unit) tablet (Vitamin D3) ursodiol 250 mg tablet 250 mg PO BID 01/05/21 12/06/21 History Calcium 600 600 mg PO QAM 12/06/21 12/06/21 History Patient History Medical History Back pain Diarrhea Elevated LFTs Fecal urgency Frequent bowel movements Osteoporosis PSC (primary sclerosing cholangitis) Ulcerative colitis Unintentional weight loss Surgical History History of cholecystectomy History of colonoscopy History of ERCP History of esophagogastroduodenoscopy (EGD) History of oral surgery bone graft with dental implant History of wisdom tooth extraction Family History Grandmother Diabetes Other No family history of adverse response to anesthesia Social History Smoking Status: Never smoker Second Hand Exposure: No; Hx Alcohol Use: No Hx Substance Use: No Preferred Language: Slovenian Communication Ability: Effective 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 Beliefs That Will Affect Care: None Current Living Situation: Parent Current Living Situation Comment: lives with mother Feels Safe at Home: Yes Safety Concerns: Feels Safe At This Time Assistive Devices: None Review of Systems Constitutional: no fever, no chills and no sweats Eyes: no diplopia Ear, Nose, Mouth, Throat: no nasal discharge Respiratory: no cough and no dyspnea Cardiovascular: + chest pain and + chest pain with activity; no dyspnea Gastrointestinal: no abdominal pain, no belching, no bloating, no early satiety, no heartburn, no nausea, no vomiting and no coffee ground emesis Genitourinary: no urinary frequency Musculoskeletal: no radicular pain Integumentary: no non-healing lesions Neurologic: no falls and no paralysis Psychiatric: no hopelessness and no change in appetite Endocrine: no polydipsia Hematologic / Lymphatic: no coagulopathy Allergy / Immunological: no lip swelling Physical Exam Constitutional: well nourished and + thin; no acute distress and not ill appearing Eyes: mild icterus ENMT: external ear and nose normal, oropharynx normal Mallampati Class: II Neck: trachea midline, no thyromegaly Respiratory: Auscultation: no crackles, no rales, no rhonchi and no wheezes Cardiovascular: Heart Sounds: no murmur Gastrointestinal (Abdomen): Percussion/Palpation: abdomen soft; abdomen nontender, no guarding and abdomen not rigid Neurologic: Speech / Cognition: normal speech Results & Data ([facility]) Vital Signs (Past 12 Hours) Vital Signs Temp Pulse Pulse Resp BP BP Pulse Ox 12/07/21 03:13 36.6 C 101 H 18 119/79 97 12/07/21 00:00 37.1 C 104 H 96 H 119/81 96 12/06/21 23:30 109 H 109/77 12/06/21 23:00 108 H 113/79 97 12/06/21 22:30 120 H 118/72 Laboratory Results Laboratory Results - last 24 hr 12/06/21 12/06/21 12/06/21 15:45 15:45 15:45 WBC 5.70 RBC 4.82 Hgb 14.9 Hct 44.0 MCV 91.3 MCH 30.9 MCHC 33.9 RDW Std Deviation 45.4 RDW Coeff of Farzana 13.6 Plt Count 260 MPV 11.1 H Immature Gran % (Auto) 0.4 Neut % (Auto) 73.7 Lymph % (Auto) 13.5 [place] % (Auto) 11.6 Eos % (Auto) 0.4 Baso % (Auto) 0.4 Neut # (Auto) 4.21 Lymph # (Auto) 0.77 L [place] # (Auto) 0.66 H Eos # (Auto) 0.02 Baso # (Auto) 0.02 Immature Gran # (Auto) 0.02 ESR PT 12.4 H INR 1.2 H APTT 32.2 H PTT Ratio 1.2 Sodium 136 Potassium 3.5 Chloride 99 Carbon Dioxide 27 Anion Gap 10 BUN 10 Creatinine 0.90 Est Cr Clr Drug Dosing 110.2 Est GFR ( Amer) 130.5 Est GFR (Non-Af Amer) 112.6 BUN/Creatinine Ratio 11.1 Glucose 84 Calcium 10.2 H Phosphorus Magnesium Total Bilirubin 2.9 H AST 128 H ALT 188 H Alkaline Phosphatase 671 H Troponin I High Sens 8.1 C-Reactive Protein Total Protein 9.0 H Albumin 4.4 Globulin 4.6 H Albumin/Globulin Ratio 1.0 Lipase TSH SARS-CoV-2, RNA, NAAT 12/06/21 12/06/21 12/06/21 15:45 15:45 15:45 WBC RBC Hgb Hct MCV MCH MCHC RDW Std Deviation RDW Coeff of Farzana Plt Count MPV Immature Gran % (Auto) Neut % (Auto) Lymph % (Auto) [place] % (Auto) Eos % (Auto) Baso % (Auto) Neut # (Auto) Lymph # (Auto) [place] # (Auto) Eos # (Auto) Baso # (Auto) Immature Gran # (Auto) ESR 65 H PT INR APTT PTT Ratio Sodium Potassium Chloride Carbon Dioxide Anion Gap BUN Creatinine Est Cr Clr Drug Dosing Est GFR ( Amer) Est GFR (Non-Af Amer) BUN/Creatinine Ratio Glucose Calcium Phosphorus Magnesium 2.0 Total Bilirubin AST ALT Alkaline Phosphatase Troponin I High Sens C-Reactive Protein 4.77 H Total Protein Albumin Globulin Albumin/Globulin Ratio Lipase 12 TSH 1.605 SARS-CoV-2, RNA, NAAT 12/06/21 12/07/21 12/07/21 16:45 07:44 07:44 WBC 5.95 RBC 4.46 L Hgb 13.6 L Hct 40.3 L MCV 90.4 MCH 30.5 MCHC 33.7 RDW Std Deviation 45.2 RDW Coeff of Farzana 13.6 Plt Count 226 MPV 10.8 H Immature Gran % (Auto) Neut % (Auto) Lymph % (Auto) [place] % (Auto) Eos % (Auto) Baso % (Auto) Neut # (Auto) Lymph # (Auto) [place] # (Auto) Eos # (Auto) Baso # (Auto) Immature Gran # (Auto) ESR PT INR APTT PTT Ratio Sodium 138 Potassium 3.7 Chloride 104 Carbon Dioxide 24 Anion Gap 10 BUN 11 Creatinine 0.63 Est Cr Clr Drug Dosing 157.1 Est GFR ( Amer) > 150.0 Est GFR (Non-Af Amer) 130.4 BUN/Creatinine Ratio 17.5 Glucose 124 H Calcium 9.6 Phosphorus 2.9 Magnesium 1.9 Total Bilirubin 2.1 H AST 99 H ALT 166 H Alkaline Phosphatase 598 H Troponin I High Sens C-Reactive Protein 9.26 H Total Protein 8.1 Albumin 3.9 Globulin 4.2 H Albumin/Globulin Ratio 0.9 Lipase TSH SARS-CoV-2, RNA, NAAT NEGATIVE
--- NOTE | 2021-12-07 10:51 | Cardiology Progress Note ---
Date of Service December 07, 2021 Assessment & Plan (1) Pericarditis: (2) Tachycardia: (3) Elevated liver enzymes: (4) PSC (primary sclerosing cholangitis): Plan: Repeat ECG today demonstrating diffuse mild ST elevation suggestive of pericarditis versus early repolarization. Symptoms improved with corticosteroid therapy. Recommend prednisone taper over a 14-day period. Colchicine avoided at this time due to abnormal LFTs. Preliminary review of bedside 2D transt horacic echocardiogram is normal. There is no evidence of pericardial effusion. Admission and Anticipated Discharge Date Admission Date: December 06, 2021 Subjective Patient seen and examined at the bedside. Chest discomfort improved with corticosteroids. Notes mild discomfort with deep inspiration currently. Telemetry reveals sinus tachycardia and sinus rhythm. No dysrhythmias. Denies any abdominal discomfort, nausea, or vomiting. No fever, chills, or sick contacts. Review of Systems Review of Systems: All systems reviewed & are unremarkable except as noted in Subjective Physical Exam Constitutional: well nourished; no acute distress and not ill appearing Respiratory: no respiratory distress, no labored breathing and no retractions Auscultation: lungs clear to auscultation bilaterally; no crackles, no rales, no rhonchi and no wheezes Cardiovascular: Rate/Rhythm: regular rate, regular rhythm and + tachycardic Heart Sounds: normal S1 and normal S2; no murmur and no cardiac rub Vessels: radial pulses present; no JVD and no carotid bruit Extremities: no edema Gastrointestinal (Abdomen): Inspection/Auscultation: abdomen normal to inspection and normal bowel sounds; abdomen not distended Neurologic: CN's II-XI intact bilaterally and moves all extremities; no focal motor deficits Motor/Sensory: no tremor Psychiatric: A+Ox3, euthymic affect Results & Data ([facility]) Vital Signs (Past 12 Hours) Vital Signs Temp Pulse Pulse Resp BP BP Pulse Ox 12/07/21 03:13 36.6 C 101 H 18 119/79 97 12/07/21 00:00 37.1 C 104 H 96 H 119/81 96 12/06/21 23:30 109 H 109/77 12/06/21 23:00 108 H 113/79 97 (1) Pericarditis Chronicity: acute Pericarditis type: unspecified type Qualified Code(s): I30.9 - Acute pericarditis, unspecified
--- NOTE | 2021-12-07 15:17 | Hospitalist Progress Note ---
Date of Service December 07, 2021 Assessment & Plan (1) Pericarditis: (2) Elevated LFTs: (3) PSC (primary sclerosing cholangitis): Plan: #. Likely pericarditis in immunosuppressed patient Patient presents with acute onset of chest pain for less than 24 hours prior to arrival. At presentation, chest pain sharp in nature with deep breathing and bending forward. Has been constant since onset. 11/17 in intensity. Patient denies any respiratory signs and symptoms recently, patient not aware of any tick bite, no new skin rashes, has been vaccinated against COVID, has been diagnosed with UC and PSC less than a year ago. Admitting CTA chest and CXR with no acute findings. Admitting troponin negative. Admitting EKG with diffuse [place] depression. Cardiology evaluated, steroid from 12/06. 12/07 ECHO WNL with EF of 60 to 65%. Patient tachycardic, other vitals normal, continue to monitor over telemetry. Patient reports improvement in his chest tightness/pain. GI protection with PPI for the duration of steroid. Will get CRP in AM. #. Elevated LFTs #. History of ulcerative colitis #. History of PSC Patient due for ERCP and bile duct dilatation in 3 weeks, follows [facility] gastro[facility] Patient reports increasing yellowing lately. Also reports increasing itching. Given diarrheal component from UC, and liver impairment from PSC, colchicine will be best avoided in this case. GI evaluated. MRCP ordered. Follow-up on results, appreciate recommendations. DVT prophylaxis: Heparin Full code Admission and Anticipated Discharge Date Admission Date: December 06, 2021 Subjective Patient seen and examined at bedside as a follow-up of pericarditis in immunosuppressed patient and elevated LFTs on the background of UC/PSC. Patient was lying in bed, on room air, NAD, no new acute events overnight. Patient reports improvement in his chest tightness/pain, telemetry reviewed with sinus tachycardia, heart rate is getting better. Patient denies any fever/headache/dizziness/belly pain/other acute changes in his bowel or bladder habits. Patient does have chronic loose stools secondary to ulcerative colitis. Physical Exam Physical Exam: GENERAL: Alert and oriented x3. NAD, on RA. HEENT: No pallor, + icterus. Pupils equal, round and reactive to light. Oral mucosa moist. NECK: No JVD, no neck masses. HEART: S1 and S2 heard. Tachycardic. No murmur, no gallop. RESPIRATORY SYSTEM: Normal AP diameter. No accessory muscle use. No wheezing, no crackles. ABDOMEN: Soft, bowel sounds present, nontender, no distention. CENTRAL NERVOUS SYSTEM: No facial droop. Speech is clear. Obeys simple commands. Moves extremities. EXTREMITIES: No edema, no erythema seen. Results & Data Results & Data ([facility]) Vital Signs (Past 12 Hours) Vital Signs Temp Pulse Resp BP Pulse Ox 12/07/21 03:13 36.6 C 101 H 18 119/79 97
[2021-12-08 07:57] LABS: Hematocrit (blood only) 41.2 % (42-52); Hemoglobin 13.8 g/dL (14.0-18.0); Mean Corpuscular Hemoglobin 30.5 pg (25-34); Mean Corpuscular Hgb Conc 33.5 g/dL (32-36); Mean Corpuscular Volume 91.2 fL (80-100); Mean Platelet Volume 11.3 fL (7.4-10.4); Platelet Count 272 K/uL (130-400); RDW Coefficient of Variation 13.9 % (11.5-14.5); RDW Standard Deviation 45.1 fL (36.4-46.3); Red Blood Count 4.52 M/uL (4.7-6.1); White Blood Count 6.75 K/uL (4.8-10.8)
--- NOTE | 2021-12-08 08:02 | Electrocardiogram Report ---
Test Reason : Blood Pressure : / mmHG Vent. Rate : 088 BPM Atrial Rate : 088 BPM P-R Int : 146 ms QRS Dur : 082 ms QT Int : 370 ms P-R-T Axes : 059 060 058 degrees QTc Int : 447 ms Normal sinus rhythm with sinus arrhythmia Anterior ST elevation, most consistent with repolarization variant Normal ECG When compared with ECG of 06-DEC-2021 15:37, Vent. rate has decreased BY 48 BPM Confirmed by Antonino Fong ([id number]) on 12/08/2021 8:01:34 AM Referred By: Sangeeta Bello Confirmed By:Antonino Fong
[2021-12-08] MEDS: PANTOprazole 40 MG TAB PO SCH (08:15)
[2021-12-08] MEDS: ursodioL 300 MG CAP PO SCH (08:15)
[2021-12-08] MEDS: HEPARIN SOD 5,000 UNIT/0.5 ML VIAL SQ SCH (08:15)
[2021-12-08] MEDS: predniSONE 20 MG TAB PO SCH (08:15)
[2021-12-08] MEDS: CALCIUM CARBONATE 1250MG TAB PO SCH (08:15)
[2021-12-08] MEDS: CETIRIZINE HCL 10 MG TABLET PO SCH (08:15)
[2021-12-08] MEDS ORDERED: CHOLECALCIFEROL 5,000 UNITS 125 MCG TAB PO SCH (09:00)
[2021-12-08 09:43] LABS: Albumin Globulin Ratio 0.9 (0.9-2); Albumin Level 3.8 gm/dl (3.4-5.0); BUN Creatinine Ratio 23.6 (10-20); Bilirubin,Total 1.5 mg/dl (0.2-1.0); C Reactive Protein 4.93 mg/dl (0-0.5); Calcium 9.3 mg/dl (8.5-10.1); Creatinine Clr Calc Pharmacy 111.2 ml/min; Est GFR (African American) 131.1 ml/min; Est GFR (Non-African American) 113.1 ml/min; Globulin 4.1 gm/dl (2.5-4.0); Magnesium 2.2 mg/dl (1.7-2.4); Potassium 3.7 mmol/L (3.5-5.1); Total Protein 7.9 gm/dl (6.0-8.3)
--- NOTE | 2021-12-08 10:43 | Cardiology Progress Note ---
Date of Service December 08, 2021 Assessment & Plan (1) Pericarditis: (2) Tachycardia: (3) Elevated liver enzymes: (4) PSC (primary sclerosing cholangitis): Plan: EKG 12/07/21 with findings of diffuse mild ST elevation suggestive of pericarditis versus early repolarization. Pleurisy also perhaps a clinical consideration, however treatment is the same. Symptoms improved with corticosteroid therapy. Recommend tapering dose of prednisone over 5 weeks. On discharge: Start prednisone 30 mg daily x 7 days. Then prednisone 20 mg x 7 days Then prednisone 10 mg x 7 days Then prednisone 5 mg x 7 days Then prednisone 2.5 mg x 7 day. Avoiding colchicine given history of PSC. Continue [employer] dose of Humira. Gi input noted and appreciated. Is scheduled for colonoscopy, ERCP, US guide LN biopsy on 12/29/21. May need to adjust the timing of procedure based on course of steroid and clinical status. Follow up with cardiology in 1-2 weeks. Stable for discharge. Admission and Anticipated Discharge Date Admission Date: December 06, 2021 Subjective Mr Otero is seen in cardiology follow up of chest pain. He feels much improved. Able to take a deep breath. Telemetry reveals SR at 92 bpm, improved compared to sinus tachycardia at 130 bpm noted at time of presentation. Review of Systems Review of Systems: All systems reviewed & are unremarkable except as noted in HPI & below Physical Exam Constitutional: WD/WN, vitals as above Respiratory: normal respiratory effort, lungs clear to auscultation Cardiovascular: RRR, no murmur, no edema Gastrointestinal (Abdomen): normal bowel sounds, soft, nontender, no hepatosplenomegaly Skin: + jaundice Neurologic: PERRL, EOMI, accommodation nl, no face palsy, no dysarthria Results & Data ([facility]) Vital Signs (Past 12 Hours) Vital Signs Temp Pulse Resp BP Pulse Ox 12/08/21 07:39 36.7 C 93 H 18 123/77 98 12/08/21 03:27 36.5 C 82 17 101/67 99 12/07/21 23:01 36.6 C 96 H 16 123/81 98 Laboratory Results Cardiac Enzymes 12/08/21 Range/Units 07:19 AST 79 H (13-39) U/L CBC 12/08/21 Range/Units 07:19 WBC 6.75 (4.8-10.8) K/uL RBC 4.52 L (4.7-6.1) M/uL Hgb 13.8 L (14.0-18.0) g/dL Hct 41.2 L (42-52) % Plt Count 272 (130-400) K/uL Comprehensive Metabolic Panel Total bilirubin down from 2.9 to 1.5 12/08/21 Range/Units 07:19 Sodium 139 (136-145) mmol/L Potassium 3.7 (3.5-5.1) mmol/L Chloride 103 (98-107) mmol/L Carbon Dioxide 26 (21-32) mmol/L BUN 21 (6-23) mg/dl Creatinine 0.89 (0.6-1.4) mg/dl Glucose 76 (70-99(Fasting)) mg/dl Calcium 9.3 (8.5-10.1) mg/dl AST 79 H (13-39) U/L ALT 147 H (7-52) U/L Alkaline Phosphatase 553 H (34-104) U/L Total Protein 7.9 (6.0-8.3) gm/dl Albumin 3.8 (3.4-5.0) gm/dl Intake and Output 12/07/21 12/08/21 12/08/21 22:59 06:59 14:59 Intake Total 240 / 600 Balance 240 / 600 Intake: Oral 240 / 600 Other: Other Intake Source SIPS Diagnostic Findings TTecho this admission with findings of normal LVEF 60-65% no regional wall motion abnormalities. No pericardial effusion, no significant valvular pathology. (1) Pericarditis Chronicity: acute Pericarditis type: unspecified type Qualified Code(s): I30.9 - Acute pericarditis, unspecified
--- NOTE | 2021-12-08 11:13 | Discharge Summary ---
Date of Service December 08, 2021 Admission HPI Per Admitting Provider 31-year-old gentleman with PMH of IBS with diarrhea, ulcerative colitis diagnosed a year ago, PSC, chronic rhinitis presented to the ED 12/06 with complaint of chest tightness/pain since the evening [employer]. Per patient, his chest tightness/pain started less than 24 hours ago prior to arrival, has been constant, is sharper in nature when taking deep breath or bending forward, 5/10 at rest and 6/10 with deep breathing/bending over, not associated with fever/diaphoresis/radiation to back, not relieved with Tums, pain spans from lower part of sternum to base of neck anteriorly and patient was not able to sleep due to this pain. Patient denies any runny nose or cough or sore throat or myalgia recently. Patient denies any new skin rashes or awareness of tick bite. Patient denies fever/headache/dizziness/belly pain/SOB. Patient denies any pain or burning while passing urine. Patient does have bowel disturbances because of his ulcerative colitis. Patient is due for ERCP and biliary dilation in 3 weeks, patient follows [facility] gastroenterology. Patient does look icteric, per patient he usually gets icteric when he is due for his bile duct dilatation. Patient also reports worsening itching. Patient denies the use of tobacco/smoking, alcohol/recreational drugs. Patient is referred answer and has [employer] store. Full code. Home medications reviewed with patient, takes Humira biweekly, ursodiol 500 mg in the morning and 250 mg in the evening, calcium and vitamin d tablets, and Zyrtec. Pt is vaccinated against covid, three doses. Patient denies any significant cardiac history in the family, endorses GERD in sister and father, had his grandmom of lung cancer. Admission Exam Per Admitting Provider GENERAL: Alert and oriented x3. NAD, on RA. HEENT: No pallor, + icterus. Pupils equal, round and reactive to light. Oral mucosa moist. NECK: No JVD, no neck masses. HEART: S1 and S2 heard. Tachycardic. No murmur, no gallop. RESPIRATORY SYSTEM: Normal AP diameter. No accessory muscle use. No wheezing, no crackles. ABDOMEN: Soft, bowel sounds present, nontender, no distention. CENTRAL NERVOUS SYSTEM: No facial droop. Speech is clear. Obeys simple commands. Moves extremities. EXTREMITIES: No edema, no erythema seen. Principal Diagnosis Pericarditis in immunosuppressed patient Elevated LFTs on the background of recent diagnosis of UC/PSC Discharge Exam GENERAL: Alert and oriented x3. NAD, on RA. HEENT: No pallor, + icterus. Pupils equal, round and reactive to light. Oral mucosa moist. NECK: No JVD, no neck masses. HEART: S1 and S2 heard. Tachycardic. No murmur, no gallop. RESPIRATORY SYSTEM: Normal AP diameter. No accessory muscle use. No wheezing, no crackles. ABDOMEN: Soft, bowel sounds present, nontender, no distention. CENTRAL NERVOUS SYSTEM: No facial droop. Speech is clear. Obeys simple commands. Moves extremities. EXTREMITIES: No edema, no erythema seen. Discharge Data Allergies Allergy/AdvReac Type Severity Reaction Status Date / Time No Known Allergies Allergy Verified 12/06/21 15:56 Consultations 12/06/21 18:04 Consult Cardiology Stat 12/06/21 18:30 ED Decision to Admit Stat 12/06/21 19:29 Consult Gastroenterology Routine Ordered Studies 12/06/21 16:13 CT angio chest PE protocol Stat Hospital Course (1) Pericarditis: (2) Elevated LFTs: (3) PSC (primary sclerosing cholangitis): 31 yo M was managed for the following: #. Likely pericarditis in immunosuppressed patient Patient presents with acute onset of chest pain for less than 24 hours prior to arrival. At presentation, chest pain sharp in nature with deep breathing and bending forward. Has been constant since onset. 5/10 in intensity. Patient denies any respiratory signs and symptoms recently, patient not aware of any tick bite, no new skin rashes, has been vaccinated against COVID, has been diagnosed with UC and PSC less than a year ago. Admitting CTA chest and CXR with no acute findings. Admitting troponin negative. Admitting EKG with diffuse VA depression. Cardiology evaluated, steroid from 12/06. 12/07 ECHO WNL with EF of 60 to 65%. Patient tachycardic, HR getting better consistently, other vitals normal, continue to monitor over telemetry. Patient reports significant improvement in his chest tightness/pain. GI protection with PPI for the duration of steroid. CRP trending down. Further Mx per Instruction. #. Elevated LFTs #. History of ulcerative colitis #. History of PSC Patient due for ERCP and bile duct dilatation in 3 weeks, follows [facility] gastroenterology Patient reports increasing yellowing lately. Also reports increasing itching. Given diarrheal component from UC, and liver impairment from PSC, colchicine will be best avoided in this case. GI evaluated. OK for DC from their POV. f/u GI as OP. DVT prophylaxis: Heparin Full code Patient being discharged home with following instruction at the point of disc harge: Follow-up with your primary care physician within a week time. Follow-up with cardiology in 1 to 2 weeks time. Follow-up with GI as a scheduled for colonoscopy, ERCP, EUS guided lymph node bi opsy on 12/29/2021. You are being discharged on prednisone taper over 5 weeks. You are also being discharged on Protonix. Start prednisone 30 mg daily x 7 days. Then prednisone 20 mg x 7 days Then prednisone 10 mg x 7 days Then prednisone 5 mg x 7 days Then prednisone 2.5 mg x 7 day. Take Protonix twice a day for 14 days followed by once a day until the duration of antibiotic. Get your blood work CBC, CMP and CRP done in a week time and have the results forwarded to your primary care physician. Take your medications as prescribed. Total Time Total Time Spent Total Time Spent (In Minutes): 40 Discharge Plan Discharge Items Patient Disposition: Home - Self-Care Reason For Visit: CHEST TIGHTNESS, PAIN Discharge Diagnosis: Pericarditis in immunosuppressed patient Elevated LFTs on the background of recent diagnosis of UC/PSC Condition on Discharge: Fair Activity: Resume your previous activity Non-emergency contact: Primary Care Provider Call non-emergency contact if: you have any medication questions, your symptoms worsen, your pain is not controlled, your pain is worsening and your temperature is above 101 Follow-up/Referrals: Michael Branch DO [Primary Care Provider] - Diet: Regular Addtl Attending Provider Instructions: Follow-up with your primary care physician within a week time. Follow-up with cardiology in 1 to 2 weeks time. Follow-up with GI as a scheduled for colonoscopy, ERCP, EUS guided lymph node biopsy on 12/29/2021. You are being discharged on prednisone taper over 5 weeks. You are also being discharged on Protonix. Start prednisone 30 mg daily x 7 days. Then prednisone 20 mg x 7 days Then prednisone 10 mg x 7 days Then prednisone 5 mg x 7 days Then prednisone 2.5 mg x 7 day. Take Protonix twice a day for 14 days followed by once a day until the duration of antibiotic. Get your blood work CBC, CMP and CRP done in a week time and have the results forwarded to your primary care physician. Take your medications as prescribed. Pending Studies at Discharge: No Stand-Alone Forms: My [facility], Smoking Cessation Medications and DC Order Prescriptions: New pantoprazole 40 mg Tablet,Delayed Release (Dr/Ec) 40 mg PO BID Qty: 60 RF: 0 prednisone 10 mg tablet 10 mg PO DAILY Qty: 42 RF: 0 prednisone 2.5 mg tablet 2.5 mg PO DAILY Qty: 21 RF: 0 Continued cetirizine 10 mg Tablet 10 mg PO QAM RF: 0 Calcium 600 600 MG 600 mg PO QAM RF: 0 ursodiol 250 mg Tablet 250 mg PO BID RF: 0 Humira Pen 40 mg/0.8 mL Pen Injector Kit 40 mg SUBCUT DIRECTED RF: 0 cholecalciferol (vitamin D3) [Vitamin D3] 125 mcg (5,000 unit) Tablet 125 mcg PO WK RF: 0 Discharge Orders: Discharge Order (Routine); Ordered 12/08/21 Ordered By: Oswald Butler Admission Data Admit Date/Time: 12/06/21 19:21 Attending Provider: Oswald Butler Admit Provider: Oswald Butler Primary Care Provider: Michael Branch Other Providers: John Armenta ; Oswald Butler ; Sangeeta Bello
--- NOTE | 2021-12-08 13:30 | Gastroenterology Progress Note ---
Date of Service December 08, 2021 Assessment & Plan (1) PSC (primary sclerosing cholangitis): Plan: Current symptoms unlikely to be caused by infectious process such as cholangitis because no fevers, no jaundice, and bile ducts were w/o obstruction 3 wks ago on MRI. Pt has OP f/u office visit arranged with Dr. Bello in mid January. If he does develop jaundice, fevers, then we would certainly consider ERCP, otherwise no GI procedures planned at this time. Continue ursodiol at same dose as prior to admission and see Dr. Bello in January. WIll update Dr. Bello regarding pt's recent admission and our office will reach out to Mr. Jara if additional OP procedure such as ERCP needs to be arranged prior to the pt's office visit w Dr. Bello in January. Admission and Anticipated Discharge Date Admission Date: December 06, 2021 Supervising Physician Co-Signing Physician Notes Attending attestation I have seen, examined this patient, and agree with the findings and above by our mid-level provider TAYLOR Dhaliwal, with the following additions: Labs improved, no signs of cholangitis, f/u as outpt as planned Subjective 31 yr old male Presented on 12/06 w Chest pain. Working dx is pericarditis. Pain much improved. Denies any yellow eyes, skin, fevers or abdominal pain. Able to eat w/o post prandial pain. LFTs elevated but significantly improved: T Bili 6.1->2.1, AST 438->99, ALT 585- >166 Except that Alk Phos has worsened: 199->598. Review of Systems Review of Systems: ROS: Gen: Denies weakness, fevers, weight loss Eyes: No eye redness, or pain, no recent vision changes Resp: No SOB, no cough Cardio: No palpitations/irregular beats + CP as per HPI, otherwise (-). GI: No abdominal pain, no nausea/vomiting : Denies pain on urination Skin: No jaundice, itching or new rashes Physical Exam Constitutional: well developed, + thin and cooperative Eyes: PERRL, conjunctivae normal, anicteric sclerae Respiratory: normal respiratory effort, lungs clear to auscultation Cardiovascular: RRR, no murmur, no edema Gastrointestinal (Abdomen): normal bowel sounds, soft, nontender, no hepatosplenomegaly Skin: no rashes, warm and dry normal turgor Neurologic: PERRL, EOMI, accommodation nl, no face palsy, no dysarthria awake; not confused Psychiatric: A+Ox3, euthymic affect Orientation: cooperative Lymphatic: no cervical or axillary lymphadenopathy Results & Data ([facility]) Vital Signs (Past 12 Hours) Vital Signs Temp Pulse Resp BP Pulse Ox 12/08/21 12:57 36.6 C 88 18 115/79 97 12/08/21 11:20 36.6 C 88 18 115/79 97 12/08/21 07:39 36.7 C 93 H 18 123/77 98 12/08/21 03:27 36.5 C 82 17 101/67 99 Laboratory Results WBC 6.75, Hb 7.9, Hct 41.2, glucose 272, INR 1.2, Na 139, K 3.7, Cl 103, CO2 26, BUN 21, Cr 8.9, glucose 76 Diagnostic Findings OP MRCP on 11/09/21:1. Beaded appearance of the intrahepatic biliary ducts within both the right and left hepatic lobe centrally, compatible the patient's history of primary sclerosing cholangitis. 2. Numerous small nodules scattered throughout the entire abdomen, likely lymphadenopathy. This is possibly reactive but a neoplastic process may be considered. Correlation with any personal history of malignancy is advised. Follow-up can be obtained in 6 months.
== END 2021-12-08 13:28 | disposition home or self-care (01) | DRG 315 ==
LOC: ED 15:24 → 2N 19:21

== ENCOUNTER 2022-12-02 13:08 | Observation (INO) ==
[2022-12-02] MEDS ORDERED: SODIUM CHLORIDE 0.9% 1000ML 1,000 ML IV STA (14:10)
--- NOTE | 2022-12-02 14:18 | Emergency Department Note ---
Impression & Plan Cellulitis of hand, left, Acute pain of left wrist ED Provider Note NAME: ANDERSON MEZA AGE: 32 SEX: M : 1990 ARRIVES VIA: Walk-In INFORMANT: Patient, ED PROVIDER(S): Eduardo Kingsley DO CHIEF COMPLAINT: Wrist pain HPI: The patient is a 32-year-old male who presented to the emergency department for an evaluation of wrist pain. The patient noticed over the last 48 hours that he was having joint pain. He describes wrist pain bilaterally left greater than right as well as knee pain left greater than right. He also has neck pain. He denies having any fever nausea or vomiting. He denies having any chest pain or difficulty breathing. He denies having any dysuria frequency or visual problems. He was not seen by his family doctor but instead came to the emergency department for further evaluation. He also notices he has trouble closing his hands left greater than right. ROS: See above HPI for pertinent positives & negatives. A total of 10 systems reviewed and were otherwise negative. PAST MEDICAL HISTORY: See Below PAST SURGICAL HISTORY: See Below FAMILY HISTORY: See Below SOCIAL HISTORY: See Below HOME MEDICATIONS: See Below ALLERGIES: See Below VITALS: See Below PHYSICAL EXAMINATION: GENERAL: Patient is awake alert in no acute distress patient is resting comfortably and showing no signs of anxiety EYES: The conjunctivae are clear. The pupils are round and reactive. EARS, NOSE, MOUTH AND THROAT: The nose is without any evidence of any deformity. NECK: The neck is nontender and supple. RESPIRATORY: Normal respiratory effort is noted there is no evidence of wheezing rhonchi or rales CARDIOVASCULAR: Tachycardic and regular heart sounds were noted to auscultation. There is no definite murmur. GASTROINTESTINAL: The abdomen is soft. Abdomen is nontender. BACK: No midline tenderness or or step-off noted range of motion in flexion extension as well as rotation no signs of muscle spasm noted MUSCULOSKELETAL/EXTREMITIES: There is no evidence of gross deformity full range of motion is noted in the hips and shoulders. There was erythema and effusion noted to the left wrist. Range of motion elicited pain. There was similar finding in the right wrist but not to the same degree. Range of motion of both knees was intact. There is no significant effusion palpable on either knee. SKIN: There is no obvious evidence of any rash. There are no petechiae, pallor or cyanosis noted. NEUROLOGIC: Patient is awake alert and oriented x3 strength is symmetric patellar reflexes are 2+ bilaterally. Biceps tendon reflexes were 2+ bilaterally. MEDICAL DECISION MAKING: The patient is a 32-year-old male who presented to the emergency department for an evaluation of the left hand pain. The patient does take a biologic medication for ulcerative colitis. The patient's exam does appear to be consistent with an infectious process. I discussed the patient's laboratory and radiographic studies with him. He was treated with pain medication as well as IV antibiotics. He was reevaluated multiple times. Ultimately given the patient's comorbidities as well as his history of taking a biologic medication for ulcerative colitis I do feel he may be a better candidate for inpatient management. For this reason I discussed his condition with the on-call [facility]. They have agreed to evaluate the patient in the emergency department for further management and disposition. Triage Nursing notes reviewed. Prior medical records reviewed Vital Signs: reviewed and remarkable for no significant abnormalities Differential diagnosis: Etiologies such as cellulitis, abscess, MRSA infection, dermatitis, drug eruption, necrotizing fasciitis, DVT as well as others were entertained. ER treatment provided: See below Diagnostics interpreted by me: ECG: none Cardiac Monitoring: An order was placed for continuous cardiac monitoring. The monitor shows a rate of 91 bpm with sinus rhythm. Laboratory studies: As stated above and show below. Imaging studies: See below. Radiographic imaging was reviewed by myself Consultation(s): I discussed this case with Nina who is on-call for the [facility]. They will evaluate the patient in the emergency department. Past Med/Surg History Medical History (Updated 12/02/22 @ 17:57 by Eduardo Kingsley DO) Back pain Diarrhea Elevated LFTs Fecal urgency Frequent bowel movements GERD (gastroesophageal reflux disease) Osteoporosis Polyarthralgia PSC (primary sclerosing cholangitis) Ulcerative colitis Unintentional weight loss Surgical History History of cholecystectomy History of colonoscopy History of ERCP History of esophagogastroduodenoscopy (EGD) History of oral surgery bone graft with dental implant History of wisdom tooth extraction Family History Grandmother Diabetes Other No family history of adverse response to anesthesia Social History Smoking Status: Never smoker Second Hand Exposure: No; Do You Dip or Chew Tobacco: No; Hx Alcohol Use: No Hx Substance Use: No Preferred Language: Serbian Communication Ability: Effective Emt Dispatcher Required: No Beliefs That Will Affect Care: None Current Living Situation: Parent Current Living Situation Comment: lives with mother Feels Safe at Home: Yes Assistive Devices: None Allergies Allergies Allergy/AdvReac Type Severity Reaction Status Date / Time No Known Allergies Allergy Verified 12/06/21 15:56 Home Meds Home Medications Medication Instructions Recorded Confirmed ursodiol 250 mg tablet 250 mg PO BID 01/05/21 12/06/21 Calcium 600 600 mg PO QAM 12/06/21 12/06/21 Results & Data (ED) Vital Signs Vital Signs - 24 hr 12/02/22 13:12 12/02/22 14:29 12/02/22 14:30 Temperature 37.4 C Temperature Source Temporal Artery Scan Pulse Rate 135 H 113 H 118 H Pulse Rate [Apical] Pulse Rate from SpO2 Sensor 114 H 117 H Respiratory Rate 20 15 12 Respiratory Effort / Characteristics Non-Labored Spontaneous Respiratory Depth Normal Respiratory Pattern Regular Blood Pressure 140/77 Blood Pressure Mean 98 Pulse Oximetry 99 98 98 Oxygen Delivery Method Room Air Sepsis Recent Fever Within 48 Hours No Sepsis New/Unexplained Change in Mental Status No Sepsis Action Taken by Nursing No Action Required 12/02/22 14:46 12/02/22 14:46 12/02/22 15:06 Temperature Temperature Source Pulse Rate 118 H 119 H Pulse Rate [Apical] Pulse Rate from SpO2 Sensor 116 H Respiratory Rate 14 11 L Respiratory Effort / Characteristics Respiratory Depth Respiratory Pattern Blood Pressure 125/82 Blood Pressure Mean 87 Pulse Oximetry 99 Oxygen Delivery Method Sepsis Recent Fever Within 48 Hours Sepsis New/Unexplained Change in Mental Status Sepsis Action Taken by Nursing 12/02/22 15:30 12/02/22 16:41 Temperature Temperature Source Pulse Rate 104 H Pulse Rate [Apical] 91 H Pulse Rate from SpO2 Sensor 104 H Respiratory Rate 15 Respiratory Effort / Characteristics Respiratory Depth Respiratory Pattern Blood Pressure Blood Pressure Mean Pulse Oximetry 99 Oxygen Delivery Method Sepsis Recent Fever Within 48 Hours Sepsis New/Unexplained Change in Mental Status Sepsis Action Taken by [facility] Medications Current Medication List: was personally reviewed by me Laboratory Data Attestation: I reviewed the patient's lab results. 12/02/22 14:32 12/02/22 14:32 Lab Results 12/02/22 12/02/22 12/02/22 Range/Units 14:32 14:32 14:32 WBC 8.78 (4.8-10.8) K/ul RBC 4.80 (4.70-6.10) M/uL Hgb 14.3 (14.0-18.0) g/dl Hct 42.7 (42.0-52.0) % MCV 89.0 (80.0-100.0) fL MCH 29.8 (25.0-34.0) pg MCHC 33.5 (32.0-36.0) g/dL RDW Std Deviation 44.3 (36.4-46.3) fL RDW Coeff of Farzana 13.5 (11.5-14.5) % Plt Count 232 (130-400) K/uL MPV 11.0 (9.4-12.4) fL Immature Gran % (Auto) 0.5 % Neut % (Auto) 84.8 % Lymph % (Auto) 7.4 % [place] % (Auto) 7.1 % Eos % (Auto) 0.0 % Baso % (Auto) 0.2 % Neut # (Auto) 7.45 H (1.40-6.50) K/uL Lymph # (Auto) 0.65 L (1.2-3.4) K/uL [place] # (Auto) 0.62 H (0.11-0.59) K/uL Eos # (Auto) 0.00 (0-0.50) K/uL Baso # (Auto) 0.02 (0-0.2) K/uL Immature Gran # (Auto) 0.04 (0.01-0.20) K/uL ESR 61 H (0-15) mm/hr PT 11.7 (9.0-12.0) Seconds INR 1.1 (0.9-1.1) APTT 32.3 H (21.0-31.0) Seconds PTT Ratio 1.1 Sodium (136-145) mmol/L Potassium (3.5-5.1) mmol/L Chloride (98-107) mmol/L Carbon Dioxide (21-32) mmol/L Anion Gap (3-11) BUN (6-23) mg/dl Creatinine (0.6-1.4) mg/dl Est Cr Clr Drug Dosing ml/min Est GFR ( Amer) ml/min Est GFR (Non-Af Amer) ml/min BUN/Creatinine Ratio (10-20) Glucose (70-99(Fasting)) mg/dl Lactate (0.4-2.0) mmol/L Calcium (8.6-10.3) mg/dl Total Bilirubin (0.2-1.0) mg/dl Direct Bilirubin (0-0.2) mg/dl AST (13-39) U/L ALT (7-52) U/L Alkaline Phosphatase (34-104) U/L C-Reactive Protein (0-0.5) mg/dl Total Protein (6.0-8.3) gm/dl Albumin (3.4-5.0) gm/dl Globulin (2.5-4.0) gm/dl Albumin/Globulin Ratio (0.9-2) Procalcitonin (0-0.5) ng/ml Anaplasma Smear See Comment Lyme Disease IgG Ab (Negative) Lyme Disease IgM Ab (Negative) SARS-CoV-2, RNA, NAAT (NEGATIVE) 12/02/22 12/02/22 12/02/22 Range/Units 14:32 14:32 14:32 WBC (4.8-10.8) K/ul RBC (4.70-6.10) M/uL Hgb (14.0-18.0) g/dl Hct (42.0-52.0) % MCV (80.0-100.0) fL MCH (25.0-34.0) pg MCHC (32.0-36.0) g/dL RDW Std Deviation (36.4-46.3) fL RDW Coeff of Farzana (11.5-14.5) % Plt Count (130-400) K/uL MPV (9.4-12.4) fL Immature Gran % (Auto) % Neut % (Auto) % Lymph % (Auto) % [place] % (Auto) % Eos % (Auto) % Baso % (Auto) % Neut # (Auto) (1.40-6.50) K/uL Lymph # (Auto) (1.2-3.4) K/uL [place] # (Auto) (0.11-0.59) K/uL Eos # (Auto) (0-0.50) K/uL Baso # (Auto) (0-0.2) K/uL Immature Gran # (Auto) (0.01-0.20) K/uL ESR (0-15) mm/hr PT (9.0-12.0) Seconds INR (0.9-1.1) APTT (21.0-31.0) Seconds PTT Ratio Sodium 135 L (136-145) mmol/L Potassium 3.5 (3.5-5.1) mmol/L Chloride 102 (98-107) mmol/L Carbon Dioxide 24 (21-32) mmol/L Anion Gap 9 (3-11) BUN 11 (6-23) mg/dl Creatinine 0.84 (0.6-1.4) mg/dl Est Cr Clr Drug Dosing 115.7 ml/min Est GFR ( Amer) 133.3 ml/min Est GFR (Non-Af Amer) 115.0 ml/min BUN/Creatinine Ratio 13.1 (10-20) Glucose 111 H (70-99(Fasting)) mg/dl Lactate 1.6 (0.4-2.0) mmol/L Calcium 9.4 (8.6-10.3) mg/dl Total Bilirubin 2.9 H (0.2-1.0) mg/dl Direct Bilirubin 1.4 H (0-0.2) mg/dl AST 80 H (13-39) U/L ALT 135 H (7-52) U/L Alkaline Phosphatase 595 H (34-104) U/L C-Reactive Protein 3.69 H (0-0.5) mg/dl Total Protein 8.7 H (6.0-8.3) gm/dl Albumin 4.2 (3.4-5.0) gm/dl Globulin 4.5 H (2.5-4.0) gm/dl Albumin/Globulin Ratio 0.9 (0.9-2) Procalcitonin 0.16 (0-0.5) ng/ml Anaplasma Smear Lyme Disease IgG Ab Negative (Negative) Lyme Disease IgM Ab Negative (Negative) SARS-CoV-2, RNA, NAAT (NEGATIVE) 12/02/22 Range/Units 16:33 WBC (4.8-10.8) K/ul RBC (4.70-6.10) M/uL Hgb (14.0-18.0) g/dl Hct (42.0-52.0) % MCV (80.0-100.0) fL MCH (25.0-34.0) pg MCHC (32.0-36.0) g/dL RDW Std Deviation (36.4-46.3) fL RDW Coeff of Farzana (11.5-14.5) % Plt Count (130-400) K/uL MPV (9.4-12.4) fL Immature Gran % (Auto) % Neut % (Auto) % Lymph % (Auto) % [place] % (Auto) % Eos % (Auto) % Baso % (Auto) % Neut # (Auto) (1.40-6.50) K/uL Lymph # (Auto) (1.2-3.4) K/uL [place] # (Auto) (0.11-0.59) K/uL Eos # (Auto) (0-0.50) K/uL Baso # (Auto) (0-0.2) K/uL Immature Gran # (Auto) (0.01-0.20) K/uL ESR (0-15) mm/hr PT (9.0-12.0) Seconds INR (0.9-1.1) APTT (21.0-31.0) Seconds PTT Ratio Sodium (136-145) mmol/L Potassium (3.5-5.1) mmol/L Chloride (98-107) mmol/L Carbon Dioxide (21-32) mmol/L Anion Gap (3-11) BUN (6-23) mg/dl Creatinine (0.6-1.4) mg/dl Est Cr Clr Drug Dosing ml/min Est GFR ( Amer) ml/min Est GFR (Non-Af Amer) ml/min BUN/Creatinine Ratio (10-20) Glucose (70-99(Fasting)) mg/dl Lactate (0.4-2.0) mmol/L Calcium (8.6-10.3) mg/dl Total Bilirubin (0.2-1.0) mg/dl Direct Bilirubin (0-0.2) mg/dl AST (13-39) U/L ALT (7-52) U/L Alkaline Phosphatase (34-104) U/L C-Reactive Protein (0-0.5) mg/dl Total Protein (6.0-8.3) gm/dl Albumin (3.4-5.0) gm/dl Globulin (2.5-4.0) gm/dl Albumin/Globulin Ratio (0.9-2) Procalcitonin (0-0.5) ng/ml Anaplasma Smear Lyme Disease IgG Ab (Negative) Lyme Disease IgM Ab (Negative) SARS-CoV-2, RNA, NAAT NEGATIVE (NEGATIVE) Administered Medications Discontinued Medications Sodium Chloride (Nss 1000ml) 1,000 mls @ 999 mls/hr IV .[id number] STA Stop: 12/02/22 15:10 Last Infusion: 12/02/22 17:23 Dose: 0 mls/hr Documented By: Admin: 12/02/22 14:38 Dose: 999 mls/hr Documented By: KATIE Ceftriaxone Sodium (Rocephin) 2,000 mg in 70 mls @ 140 mls/hr IV NOW STA Stop: 12/02/22 16:44 Last Infusion: 12/02/22 17:22 Dose: 0 mls/hr Documented By: Admin: 12/02/22 16:32 Dose: 140 mls/hr Documented By: TAINA Morphine Sulfate (Morphine Sulfate 4 Mg/Ml 1 Ml Carp\Vial) 4 mg IV NOW STA Stop: 12/02/22 16:08 Last Admin: 12/02/22 16:23 Dose: 4 mg Documented By: TAINA Ondansetron HCl (Ondansetron Inj 2 Mg/Ml 2 Ml Vial) 4 mg IV NOW STA Stop: 12/02/22 16:08 Last Admin: 12/02/22 16:23 Dose: 4 mg Documented By: TAINA Imaging Data Attestation: I personally reviewed and interpreted this imaging study as follows: My Impression: X-ray left wrist was obtained in the emergency department. My interpretation is no bony injury or signs of effusion, final report below. Radiologist's Impression: Wrist X-Ray 12/02/22 14:10 XR wrist LT min 3V routine CLINICAL HISTORY: swelling TECHNIQUE: 4 views of the left wrist were obtained. Comparison: None available at the time of this dictation. FINDINGS: There is no evidence of an acute fracture. Joint spaces are well-preserved. No soft tissue abnormality is seen. IMPRESSION: No evidence of acute osseous injury. ACT 112: Negative or not required by law. Electronically signed by: Andrew Love M.D. 12/02/2022 3:07 PM Discharge Plan Visit Data Chief Complaint: Pain (Generalized) Stated Complaint: PAIN/STIFFNESS IN BOTH HANDS/ARMS,NECK,KNEE ED Provider: Eduardo Kingsley Discharge Problem: Cellulitis of hand, left, Acute pain of left wrist Patient Disposition: Being Evaluated by Hospitalist Forms Stand Alone Forms: [facility] Prescriptions Prescriptions: No Action Calcium 600 600 MG 600 mg PO QAM ursodiol 250 mg Tablet 250 mg PO BID Referrals Referrals: Michael Branch DO [Primary Care Provider] -
[2022-12-02 15:06] LABS: Basophils # (auto) 0.02 K/uL (0-0.2); Basophils % (auto) 0.2 %; Hematocrit (blood only) 42.7 % (42.0-52.0); Hemoglobin 14.3 g/dl (14.0-18.0); Immature Granulocytes # (auto) 0.04 K/uL (0.01-0.20); Immature Granulocytes % (auto) 0.5 %; Lymphocytes # (auto) 0.65 K/uL (1.2-3.4); Lymphocytes % (auto) 7.4 %; Mean Corpuscular Hemoglobin 29.8 pg (25.0-34.0); Mean Corpuscular Hgb Conc 33.5 g/dL (32.0-36.0); Monocytes # (auto) 0.62 K/uL (0.11-0.59); Monocytes % (auto) 7.1 %; Neutrophils # (auto) 7.45 K/uL (1.40-6.50); Neutrophils % (auto) 84.8 %; Platelet Count 232 K/uL (130-400); RDW Coefficient of Variation 13.5 % (11.5-14.5); RDW Standard Deviation 44.3 fL (36.4-46.3); White Blood Count 8.78 K/ul (4.8-10.8)
--- NOTE | 2022-12-02 15:08 | XRay Report ---
XR wrist LT min 3V routine CLINICAL HISTORY: swelling TECHNIQUE: 4 views of the left wrist were obtained. Comparison: None available at the time of this dictation. FINDINGS: There is no evidence of an acute fracture. Joint spaces are well-preserved. No soft tissue abnormalit y is seen. IMPRESSION: No evidence of acute osseous injury. ACT 112: Negative or not required by law. Electronically signed by: Andrew Love M.D. 12/02/2022 3:07 PM
[2022-12-02 15:22] LABS: Albumin Globulin Ratio 0.9 (0.9-2); Albumin Level 4.2 gm/dl (3.4-5.0); BUN Creatinine Ratio 13.1 (10-20); Bilirubin Direct 1.4 mg/dl (0-0.2); Bilirubin,Total 2.9 mg/dl (0.2-1.0); C Reactive Protein 3.69 mg/dl (0-0.5); Calcium 9.4 mg/dl (8.6-10.3); Creatinine Clr Calc Pharmacy 115.7 ml/min; Est GFR (African American) 133.3 ml/min; Globulin 4.5 gm/dl (2.5-4.0); Potassium 3.5 mmol/L (3.5-5.1); Total Protein 8.7 gm/dl (6.0-8.3)
[2022-12-02 15:32] LABS: INR 1.1 (0.9-1.1); Partial Thromboplastin Ratio 1.1; Partial Thromboplastin Time 32.3 Seconds (21.0-31.0); Prothrombin Time 11.7 Seconds (9.0-12.0)
[2022-12-02 15:37] LABS: Procalcitonin 0.16 ng/ml (0-0.5)
[2022-12-02 15:43] LABS: Lyme Ab IgG w/WB Rflx Negative (Negative); Lyme Ab IgM w/WB Rflx Negative (Negative)
[2022-12-02] MEDS ORDERED: MoRPHine SULFATE 4 MG/ML 1 ML CARP\\VIAL IV STA (16:07)
[2022-12-02] MEDS ORDERED: ONDANSETRON INJ 2 MG/ML 2 ML VIAL IV STA (16:07)
[2022-12-02] MEDS ORDERED: cefTRIAXone SODIUM 2,000 MG/70 ML BAG IV STA (16:15)
[2022-12-02] MEDS ORDERED: MAGNESIUM HYDROXIDE SUSP 30 ML UDC PO PRN (16:42)
[2022-12-02] MEDS ORDERED: ONDANSETRON INJ 2 MG/ML 2 ML VIAL IV PRN (16:42)
[2022-12-02] MEDS ORDERED: POLYETHYLENE (MIRALAX) 17 GM PACK PO PRN (16:42)
[2022-12-02] MEDS ORDERED: ALUMINUM/MAGNESIUM SUSP 30 ML UDC PO PRN (16:42)
--- NOTE | 2022-12-02 16:56 | History & Physical Report ---
Date of Service December 02, 2022 Assessment & Plan (1) Polyarthralgia: (2) Acute pain of left wrist: (3) Septic arthritis: (4) Ulcerative colitis: (5) PSC (primary sclerosing cholangitis): (6) Elevated LFTs: (7) Clostridium difficile carrier: (8) Osteoporosis: Plan 32 y/o presents with right wrist pain and swelling. R/O septic joint. History of Ulcerative Colitis. Follows with GI. IV abx, await blood cultures and fungal cultures. Lyme negative. CRP elevated; check ESR. Additional PMH includes PSC and Osteoporosis. Polyarthralgia: R/O Septic Joint: left wrist swelling R wrist x-ray negative for acute fracture No Leukocytosis CRP 3.69 Check ESR Lyme negative Blood and Fungal Cultures pending Ceftriaxone given in ED; continue and adjust based on culture results Ketorolac for pain control PRN Ortho Consult placed for evaluation of possible aspiration Ulcerative Colitis: Follows with GI; if septic joint ruled out; consider GI consultation for additional perspective and weigh-in Switched from Digna to Avsola Loading doses of Avsola administered; on 11/23 Primary Sclerosing Cholangitis: Transaminitis: Diagnosed when he was diagnosed with UC On 10/2022 AST 143, ALT 175, AlkPhos 774; Today the AST is 80, ALT is 135, and Alk Phos is 595. Likely secondary to biologic medications Takes Ursodiol; continue Chronic C-Diff: Vancomycin 125 mg PO daily started three weeks ago; continue No active diarrhea Osteoporosis: Stable Disposition: PCP: Dr. Branch Code Status: Full Code VTE Prophylaxis: Lovenox SQ I spent a total of 87 minutes coordinating, documenting, and providing care for this patient excluding time spent in the performance of separately billed services. All of the aforementioned completed while collaborating with the assigned attending physician for a full treatment plan. Please see their addendum for further details. History of Present Illness Chief Complaint: wrist pain Primary Care Provider: Michael Branch DO Mr. Jara is a 32 year old male that presented to the ED today with complaints of a swollen right wrist. He reports that he fell asleep while reading his book on Tuesday and woke up with his left wrist swollen, red and tender to touch. He denies any recent trauma. He denies fever or chills. He has Ulcerative Colitis and is on Avsola for treatment. He was on Humira and was switched to Avsola and has received loading doses with first initial infusion on 11/23/22. He follows with Dr. Hay with GI for his UC. He is taking Vancomycin for the past three weeks for recurrent C-Diff. A wrist x-ray was performed and negative for acute fractures. Most recent ECHO 11/2021: EF 60-65%, LV wall motion normal without pericardial effusion or signs of pericarditis. Additional PMH includes Osteoporosis and Primary Sclerosing Cholangitis (On Ursodiol) and H/O cholecystectomy. No tobacco, alcohol, or recreational drug use. He, at baseline, is independent with his ADL's and eats a low fat diet. In ED, no Leukocytosis, elevated LFT's which is not uncommon to him as related to his biologic medication treatment. On 10/2022 AST 143, ALT 175, AlkPhos 774; Today the AST is 80, ALT is 135, and Alk Phos is 595. CRP is elevated at 3.69, procalcitonin negative. Lyme negative. Patient denies GOULD, dizziness, chest pain, palpitations, SOB, cough, recent illness, recent falls or trauma, urinary changes, bowel changes, hematochezia, appetite changes. Pt is sitting in his hospital bed in no apparent distress. He does have tenderness with passive ROM in his bilateral elbow and wrist joints. He has a difficult time with clenching both fists L > R. Erythema noted on left wrist. No tenderness noted in his knuckles, joints at base of tows, shoulders, or knees. Patient will be admitted for further evaluation and management. Please see A/P for further details. Allergies Allergy/AdvReac Type Severity Reaction Status Date / Time No Known Allergies Allergy Verified 12/02/22 18:03 Home Medications Medication Instructions Recorded Confirmed Type ursodiol 250 mg tablet 500 mg PO QAM 01/05/21 12/02/22 History calcium carbonate 600 mg-vitamin 2 tab PO DAILY 12/02/22 12/02/22 History D3 10 mcg (400 unit) tablet (Calcium 600 + D(3)) cetirizine 10 mg tablet (Zyrtec) 10 mg PO DAILY 12/02/22 12/02/22 History ursodiol 250 mg tablet 250 mg PO QPM 12/02/22 12/02/22 History vancomycin 125 mg capsule 125 mg PO DAILY 12/02/22 12/02/22 History Past Med/Surg History Medical History (Updated 12/02/22 @ 18:26 by TAYLOR La) Back pain Clostridium difficile carrier Diarrhea Elevated LFTs Fecal urgency Frequent bowel movements GERD (gastroesophageal reflux disease) Osteoporosis Polyarthralgia PSC (primary sclerosing cholangitis) Septic arthritis Ulcerative colitis Unintentional weight loss Surgical History History of cholecystectomy History of colonoscopy History of ERCP History of esophagogastroduodenoscopy (EGD) History of oral surgery bone graft with dental implant History of wisdom tooth extraction Family History Grandmother Diabetes Other No family history of adverse response to anesthesia Social History Smoking Status: Never smoker Second Hand Exposure: No; Do You Dip or Chew Tobacco: No; Hx Alcohol Use: No Hx Substance Use: No Preferred Language: Chinese Communication Ability: Effective Bee Breeder Required: No Beliefs That Will Affect Care: None Current Living Situation: Parent Current Living Situation Comment: lives with mother Feels Safe at Home: Yes Assistive Devices: None Review of Systems Review of Systems: Neuro: (-) Falls, trauma, slurred speech HEENT: (-) GOULD, dizziness, dysphagia, visual or auditory changes CV: (-) CP, palpitations, (+) joint swelling Resp: (-) SOB GI: (-) appetite changes, N/V/D, bowel changes : (-) urinary changes Skin: (-) rashes (+) erythema in left wrist Psych: (-) anxiety, depression Physical Exam Physical Exam: Neuro: AAOx4, PERRLA, no aphagia, memory changes, CNII-XII grossly intact HEENT: head normocephalic, moist mucus membranes CV: S1/S2, (-) M/G/R, (-) edema, cap refill < 3 seconds Resp: Lungs CTA in all aponte. On RA GI: Abdomen S/NT/ND, Ax4 bowel sounds, (-) CVA tenderness Musculoskeletal: 5/5 B/L UE strength, 5/5 B/L LE strength. No gait disturbance Skin: (-) rashes , (-) erythema. Psych: euthymic mood Results & Data Results & Data Vital Signs (Past 12 Hours) Vital Signs Temp Pulse Pulse Resp BP Pulse Ox O2 Del Method 12/02/22 16:41 91 H 12/02/22 15:30 104 H 15 99 12/02/22 15:06 119 H 11 L 12/02/22 14:46 125/82 12/02/22 14:46 118 H 14 99 12/02/22 14:30 118 H 12 98 12/02/22 14:29 113 H 15 98 12/02/22 13:12 37.4 C 135 H 20 140/77 99 Room Air Laboratory Results Short CBC 12/02/22 Range/Units 14:32 WBC 8.78 (4.8-10.8) K/ul Hgb 14.3 (14.0-18.0) g/dl Hct 42.7 (42.0-52.0) % Plt Count 232 (130-400) K/uL BMP 12/02/22 14:32 Sodium 135 L Potassium 3.5 Chloride 102 Carbon Dioxide 24 BUN 11 Creatinine 0.84 Glucose 111 H Calcium 9.4 Liver Function 12/02/22 Range/Units 14:32 Total Bilirubin 2.9 H (0.2-1.0) mg/dl Direct Bilirubin 1.4 H (0-0.2) mg/dl AST 80 H (13-39) U/L ALT 135 H (7-52) U/L Alkaline Phosphatase 595 H (34-104) U/L Albumin 4.2 (3.4-5.0) gm/dl Diagnostic Findings Wrist X-Ray 12/02/22 14:10 XR wrist LT min 3V routine CLINICAL HISTORY: swelling TECHNIQUE: 4 views of the left wrist were obtained. Comparison: None available at the time of this dictation. FINDINGS: There is no evidence of an acute fracture. Joint spaces are well-preserved. No soft tissue abnormality is seen. IMPRESSION: No evidence of acute osseous injury. ACT 112: Negative or not required by law. Electronically signed by: Andrew Love M.D. 12/02/2022 3:07 PM Code Status & VTE Plan Code Status Full Code in the event of cardiac or respiratory arrest VTE Prophylaxis Plan VTE Prophylaxis will be ordered: Yes Supervising Physician Co-Signing Physician Notes 32 yo M presents with acute onset small and large joint pain, specifically affecting the left wrist, but others, too. He denies any fevers, chills or other infectious symptoms. He has diarrhea with a recent h/o cdiff that is improved with maintenance vancomycin. he denies any bloody stools or GI symptoms at this time. He has a swollen submandibular LN on the right that is tender. He reports transitioning from Humira to infliximab in Aug 2022, and has had several loading doses. The Humira was stopped because it stopped working for him. His joints affected today with inflammation, pain and decreased ROM include his L>R PIP joints, MCP and carpal joints. He has very restricted ROM of the left wrist with some overlying erythema and increased temperature not co nsistent with a cellulitis. His elbows bilaterally are painful but he has no effusions, pain, or evidence of arthritis here, supraclavicular joints , shoulder and hip joints are not affected. He has some pain in c-spine that is minor with no decreased ROM of the cervical spine. His knees are stiff and slightly painful without evidence of warmth of the joint or effusion. There is no decreased ROM of the knees. Ankles, feet and toes are normal. He has a pinkish, silvery, scaly rash on the anterolateral lower legs bilaterally. There is evidence of scratching and this is described as itchy by the patient. Physical exam is otherwise unremarkable. Workup tonight reveals a wrist xray with normal joint spaces and no evidence of inflammation. Elevated inflammatory markers, elevated total bilirubin to 2.9, DB 1.4, AST 80, ALT 135, alk phos 595 (all around his baseline), TP is 8.7 and albumin 4/2 now with an elevated globulin gap of 4.5. Lyme test negative. 1. Acute, symmetric polyarthritis 2. Ulcerative colitis with PSC 3. Immunosuppressed on infliximab 4. 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 Elbows and knees also affected so this includes large and small joints. Given the rapid onset considerations include but are not limited to infection such as septic arthritis or disseminated gonococcal infection (DGI), a seronegative spondyloarthropathy including possible enteropathic arthritis vs psoriatic arthritis given the silvery plaques on the legs that are not consistent with EM or PG (common skin manifestations in IBD). There may also be ANCA positivity seen in 60-80% of patients with UC and PSC which he has. Reactive arthritis related to c-diff infection is possible. Noted there are no enthesitis, urethritis, conjunctivitis complaints. Other possibilities include RA, erosive OA, gout or CPPD, Lyme arthritis. Lyme was negative so this is less likely. Will order ortho consult for joint aspiration and synovial fluid analysis-would test for WBC, gram stain, and crystals to rule out septic joint . Will order bilateral hand films, HLAB27, trend ESR/CRP, ANCA, EMMANUEL panel, RA and CCP. Crystal arthropathy less likely given distribution of joints affected and CPPD associated diseases like thyroid disease and hemochromatosis less likely with a normal TSH and ferritin in the last year per outpatient record. No SI joint pain but used to have this prior to being treated wtih Humira. The transition to infliximab in the last couple of months or the cdiff may have also caused this new change. Cont Toradol/narcotics for now. Consulted GI to assist with diagnosis and treatment of possible extraintestinal manifestations. Family was at the bedside and all questions were answered to their satisfaction. DO Ben
[2022-12-02] MEDS: ENOXAPARIN INJ 40 MG/0.4 ML SYR SQ SCH (18:40)
[2022-12-02] MEDS: URSODIOL 250 MG TABLET PO SCH (23:05)
[2022-12-03 00:51] LABS: Appearance Urine Clear (Clear); Bacteria Urine Automated Negative (Negative); Blood Urine Negative (Negative); Cast Urine Automated 0 /lpf (0-5); Color Urine Orange; Epithelial Cell Urine Auto 0-5 /lpf (0-5); Glucose Urine UA Negative (Negative); Ketones Urine Negative (Negative); Leukocyte Esterase Urine Trace (Negative); Nitrite Urine Positive (Negative); Protein Urine Trace (Negative); RBC Urine Automated 0-4 /hpf (0-4); Specific Gravity Urine 1.021 (1.000-1.030); Urobilinogen Urine Negative (Negative); pH Urine 6.5 (4.5-7.5)
[2022-12-03 00:52] LABS: Bilirubin Urine 2+ (Negative)
[2022-12-03] MEDS: KETOROLAC TROMETHAMINE 15 MG/ML VIAL IV PRN ×2 (05:03→10:48)
--- NOTE | 2022-12-03 07:38 | Gastrointestinal Consultation ---
Date of Consultation December 03, 2022 Assessment & Plan (1) Inflammatory arthritis: Symptoms are more typical of inflammatory arthritis. Ortho was consulted. Unless ortho believes an infection is present, then would go forward w tx of inflammatory arthritis. Plan 1. Prednisone 50mg daily. 2. Sulfasalazine 3grams/day po. - above plan/meds discussed w Dr. Piña the primary hospitalist. Also enc to consider one dose of IV steroids prior to DC. 3. Pt has a f/u appt w Rheumatology. 4. GI will sign off. Please recall w question. Supervising Physician Co-Signing Physician Notes I performed a history and physical examination of the patient today, including specifically on physical exam - soft abdomen. I have discussed the patient's management with the advanced practitioner. Please refer to the nurse practitioner's note for the documented findings and plan of care. Patient with UC related peripheral arthropathy. He already improved with one dose of IV steroids. Avoid NSAIDs at all, if any needed then may allow some Celebrex. Sulfasalazine, aim for 2-3 gm daily. PO Prednisone 50 mg daily for a month then I will taper it as OP. His US is better with PO Vancomycin however he is still not in remission with Avsola hence I will likely switch him to Xeljanz as OP. Do not monitor his LFTs, they are elevated due to his PSC but remain at his baseline. Recall GI if needed. History of Present Illness Reason for Consultation: ulcerative colitis and primary sclerosing cholangitis Requesting Physician: Mary Grace Contreras Attending Physician: Damien Piña MD History of Present Illness Mr. Abelino Jara is a 32 yr old male pt of Dr. Branch w a hx of ulcerative colitis and primary sclerosing cholangitis who presented to the ED yesterday for wrist pain and swelling. GI is consulted for opinion regarding IBD associated arthritis. Sed rate is elevated at 69, CRP at 3.9. No leukocytosis. This morning, he has diffuse joint pain and swelling in both hands, some redness near the wrists and thumbs, unable to close either fist, and has bilat elbow and shoulder pain and right knee pain. He does not have fevers, chills, sweats. He has not had any biliary symptoms or GI symptoms. He is maintained on Avsola for UC since July and prior to that Humira (developed antibodies). He has had lower back pain for years and intermittent joint pain elsewhere and sees Dr. Almeida but doesn't have a specific rheumatoid dx. He has an appt scheduled w Dr. Almeida December 15. Allergies Allergy/AdvReac Type Severity Reaction Status Date / Time No Known Allergies Allergy Verified 12/02/22 18:03 Home Medications Medication Instructions Recorded Confirmed Type ursodiol 250 mg tablet 500 mg PO QAM 01/05/21 12/02/22 History calcium carbonate 600 mg-vitamin 2 tab PO DAILY 12/02/22 12/02/22 History D3 10 mcg (400 unit) tablet (Calcium 600 + D(3)) cetirizine 10 mg tablet (Zyrtec) 10 mg PO DAILY 12/02/22 12/02/22 History ursodiol 250 mg tablet 250 mg PO QPM 12/02/22 12/02/22 History vancomycin 125 mg capsule 125 mg PO DAILY 12/02/22 12/02/22 History Patient History Medical History (Updated 12/03/22 @ 08:54 by TAYLOR Abreu) Back pain Clostridium difficile carrier Diarrhea Elevated LFTs Fecal urgency Frequent bowel movements GERD (gastroesophageal reflux disease) Osteoporosis Polyarthralgia PSC (primary sclerosing cholangitis) Septic arthritis Ulcerative colitis Unintentional weight loss Surgical History History of cholecystectomy History of colonoscopy History of ERCP History of esophagogastroduodenoscopy (EGD) History of oral surgery bone graft with dental implant History of wisdom tooth extraction Family History Grandmother Diabetes Other No family history of adverse response to anesthesia Social History Smoking Status: Never smoker Second Hand Exposure: No; Do You Dip or Chew Tobacco: No; Hx Alcohol Use: No Hx Substance Use: No Preferred Language: Belarusian Communication Ability: Effective Colleter Required: No Beliefs That Will Affect Care: None Current Living Situation: Alone Current Living Situation Comment: lives with mother Feels Safe at Home: Yes Safety Concerns: Feels Safe At This Time Assistive Devices: None Review of Systems Review of Systems: ROS: Gen: Denies weakness, fevers, weight loss Eyes: No eye redness, or pain, no recent vision changes Resp: No SOB, no cough Cardio: No palpitations/irregular beats, no chest pain GI: No abdominal pain, no nausea/vomiting : Denies pain on urination Skin: No jaundice, itching or new rashes M/S: as per HPI, otherwise (-) . Physical Exam Constitutional: WD/WN, vitals as above Eyes: PERRL, conjunctivae normal, anicteric sclerae ENMT: external ear and nose normal, oropharynx normal Neck: trachea midline, no thyromegaly Respiratory: normal respiratory effort, lungs clear to auscultation Cardiovascular: RRR, no murmur, no edema Gastrointestinal (Abdomen): normal bowel sounds, soft, nontender, no hepatosplenomegaly Musculoskeletal: Both hands and wrists moderate edema and redness of all the joints of the wrist and hands; stiff, minimal flexion of fingers, pain on any wrist motion bilat. No visible elbow or knee abnormalities. Skin: silver/red rash on outer aspects of both lower legs ? psoriasis vs scarring from itching Neurologic: PERRL, EOMI, accommodation nl, no face palsy, no dysarthria Psychiatric: A+Ox3, euthymic affect Lymphatic: no cervical or axillary lymphadenopathy Results & Data Vital Signs (Past 12 Hours) Vital Signs Temp Pulse Pulse Pulse Resp BP Pulse Ox 12/03/22 02:50 36.9 C 64 16 105/68 98 12/03/22 01:12 105 H 12/02/22 21:50 36.9 C 101 H 16 118/79 97 O2 Del Method 12/03/22 02:50 Room Air 12/03/22 01:12 12/02/22 21:50 Room Air Laboratory Results WBC 8.7, Hb 14.3, Hct 42, Plts 232, PT 11.7, INR 1.1, NA 135, K 3.5, Cl 102, CO2 24, BUn 11, Cr 0.8, glucose 111. CRP 3.69, Sed rate 61. Diagnostic Findings Left wrist: No fracture or dislocation within the left hand. Bone mineralization is intact. No erosive changes identified. Cartilage spaces are maintained. Soft tissues are unremarkable. No radiopaque foreign bodies. There is no evidence of an acute fracture. Joint spaces are well-preserved. No soft tissue abnormality is seen. Left hand: Unremarkable left hand by conventional radiographic technique. Rt Hand: Alignment of the right hand is anatomic. There is no acute fracture. Joint spaces are preserved. No erosive changes are identified. There are no osseous lesions.Unremarkable right hand radiographs.
--- NOTE | 2022-12-03 07:40 | XRay Report ---
XR hand LT min 3V routine CLINICAL HISTORY: acute inflammatory changes L>R hand PIP/MCP/carpal joint COMPARISON STUDY: Left wrist 12/02/2022. FINDINGS: No fracture or dislocation within the left hand. Bone mineralization is intact. No erosive changes identified. Cartilage spaces are maintained. Soft tissues are unremarkable. No radiopaque for eign bodies. IMPRESSION: Unremarkable left hand by conventional radiographic technique. ACT 112: Negative or not required by law. Electronically signed by: Jewel Sandy M.D. 12/03/2022 7:39 AM
--- NOTE | 2022-12-03 07:42 | XRay Report ---
XR hand RT min 3V routine CLINICAL HISTORY: acute inflam changes L>R hand PIP/MCP/carpal joint COMPARISON: None FINDINGS: Alignment of the right hand is anatomic. There is no acute fracture. Joint spaces are pres erved. No erosive changes are identified. There are no osseous lesions. IMPRESSION: Unremarkable right hand radiographs. ACT 112: Negative or not required by law. Electronically signed by: Alexis Gordillo M.D. 12/03/2022 7:41 AM
[2022-12-03] MEDS ORDERED: cefTRIAXone SODIUM 2,000 MG in DEXTROSE 5% 50 ML IV SCH (08:00)
[2022-12-03 08:41] LABS: Hematocrit (blood only) 37.2 % (42.0-52.0); Hemoglobin 12.7 g/dl (14.0-18.0); Mean Corpuscular Hemoglobin 30.8 pg (25.0-34.0); Mean Corpuscular Hgb Conc 34.1 g/dL (32.0-36.0); Mean Corpuscular Volume 90.1 fL (80.0-100.0); Mean Platelet Volume 10.8 fL (9.4-12.4); Platelet Count 198 K/uL (130-400); RDW Coefficient of Variation 13.5 % (11.5-14.5); RDW Standard Deviation 45.1 fL (36.4-46.3); Red Blood Count 4.13 M/uL (4.70-6.10); White Blood Count 6.27 K/ul (4.8-10.8)
[2022-12-03] MEDS: URSODIOL 250 MG PO SCH (09:05)
[2022-12-03 09:06] LABS: Albumin Globulin Ratio 0.9 (0.9-2); Albumin Level 3.7 gm/dl (3.4-5.0); Bilirubin,Total 4.6 mg/dl (0.2-1.0); C Reactive Protein 11.91 mg/dl (0-0.5); Calcium 9.2 mg/dl (8.6-10.3); Creatinine Clr Calc Pharmacy 115.1 ml/min; Est GFR (Non-African American) 115.6 ml/min; Globulin 4.1 gm/dl (2.5-4.0); Magnesium 1.8 mg/dl (1.7-2.4); Potassium 3.4 mmol/L (3.5-5.1); Total Protein 7.8 gm/dl (6.0-8.3)
[2022-12-03] MEDS: CETIRIZINE HCL 10 MG TABLET PO SCH (09:06)
[2022-12-03] MEDS: CALCIUM 600MG + VIT D 400 IU TAB PO SCH (09:07)
[2022-12-03] MEDS: VANCOMYCIN HCL 125 MG/2.5ML SOLN PO SCH (09:42)
[2022-12-03] MEDS: RASPBERRY SYRUP 5 ML UDP PO SCH (09:42)
[2022-12-03] MEDS ORDERED: methylPREDNISolone 50 MG in SYRINGE 0 ML IV ONE (10:32)
[2022-12-03 12:47] LABS: Chlam trach RNA(Genit,Ureth,Ur Not Detected (NotDetected); GC(Neis gon)RNA(Genit,Ureth,Ur Not Detected (NotDetected)
[2022-12-03] MEDS: sulfaSALAzine 500 MG TABLET PO SCH ×2 (13:10→20:52)
[2022-12-03] MEDS ORDERED: NAPROXEN 250 MG TAB PO SCH (13:15)
--- NOTE | 2022-12-03 13:21 | Hospitalist Progress Note ---
Date of Service December 03, 2022 Assessment & Plan (1) Polyarthralgia: (2) Acute pain of left wrist: (3) Septic arthritis: (4) Ulcerative colitis: (5) PSC (primary sclerosing cholangitis): (6) Elevated LFTs: (7) Clostridium difficile carrier: (8) Osteoporosis: Plan 32 y/o presents with right wrist pain and swelling. R/O septic joint. History of Ulcerative Colitis. Follows with GI. IV abx, await blood cultures and fungal cultures. Lyme negative. CRP elevated; check ESR. Additional PMH includes PSC and Osteoporosis. Polyarthralgia: Likely arthritis related with inflammatory bowel disease. History of UC, PSC presented with symmetrical bilateral joint pain and swelling(bilateral wrist, MCP joints, elbow and knee). Left wrist more painful compared to other joints X-ray of both hands unremarkable No Leukocytosis ESR and CRP elevated Lyme negative Discussed with GI; recommend prednisone 50 mg and sulfasalazine 3 g/day. Sulfasalazine to be titrated up starting with 500 mg twice daily. We will give 1 dose of IV methylprednisolone today. Pain control with NSAIDs Discussed with rheumatology (Dr. Almeida) agreeable with the plan. Patient has follow-up with him on December 15. Started on ceftriaxone; will continue for now. Decision regarding continuing antibiotic to be made after orthopedic evaluation. Ulcerative Colitis: Switched from Digna to Avsola Loading doses of Avsola administered; on 11/23 Primary Sclerosing Cholangitis: Transaminitis: Diagnosed when he was diagnosed with UC On 10/2022 AST 143, ALT 175, AlkPhos 774; Today the AST is 80, ALT is 135, and Alk Phos is 595. Takes Ursodiol; continue Chronic C-Diff: Vancomycin 125 mg PO daily started three weeks ago; continue No active diarrhea Osteoporosis: Stable Disposition: PCP: Dr. Branch Code Status: Full Code VTE Prophylaxis: Lovenox SQ Dispofrom home. Awaiting evaluation by orthopedics. Possible discharge tomorrow a.m. depending on clinical improvement. Admission and Anticipated Discharge Date Admission Date: December 02, 2022 Subjective Patient seen and examined at bedside. He reports that swelling is slightly improved on his left wrist. Reports pain and swelling in bilateral wrist, MCP joints, elbow and knee. Review of Systems Review of Systems: All systems reviewed & are unremarkable except as noted in Subjective Physical Exam Physical Exam: Constitutional: WD/WN, vitals as above, NAD, sitting up in bed, pleasant, conversing easily Respiratory: normal respiratory effort, lungs clear to auscultation, no wheeze, rales, rhonchi. Normal insp/exp effort, no accessory muscle use Cardiovascular: RRR, no murmur, no edema Vessels: no JVD or carotid bruit Chest: normal inspection of chest Abdomen: normal bowel sounds, soft, nontender, no hepatosplenomegaly Musculoskeletal: Bilateral MCP and wrist swelling present, no overlying erythema. Painful ROM. Skin: no rashes, warm and dry normal turgor Neurologic: PERRL, EOMI, accommodation nl, no face palsy, no dysarthria CN's II- XI intact bilaterally and moves all extremities Psychiatric: A+Ox3, euthymic affect Results & Data Results & Data Vital Signs (Past 12 Hours) Vital Signs Temp Pulse Pulse Resp BP Pulse Ox O2 Del Method 12/03/22 10:58 36.4 C L 92 H 18 112/66 100 Room Air 12/03/22 08:11 36.3 C L 98 H 18 108/71 99 Room Air 12/03/22 07:55 72 12/03/22 02:50 36.9 C 64 16 105/68 98 Room Air Laboratory Results Laboratory Results WBC 6.27 K/ul (4.8-10.8) 12/03/22 08:19 RBC 4.13 M/uL (4.70-6.10) L 12/03/22 08:19 Hgb 12.7 g/dl (14.0-18.0) L 12/03/22 08:19 Hct 37.2 % (42.0-52.0) L 12/03/22 08:19 MCV 90.1 fL (80.0-100.0) 12/03/22 08:19 MCH 30.8 pg (25.0-34.0) 12/03/22 08:19 MCHC 34.1 g/dL (32.0-36.0) 12/03/22 08:19 RDW Std Deviation 45.1 fL (36.4-46.3) 12/03/22 08:19 RDW Coeff of Farzana 13.5 % (11.5-14.5) 12/03/22 08:19 Plt Count 198 K/uL (130-400) 12/03/22 08:19 MPV 10.8 fL (9.4-12.4) 12/03/22 08:19 Immature Gran % (Auto) 0.5 % 12/02/22 14:32 Neut % (Auto) 84.8 % 12/02/22 14:32 Lymph % (Auto) 7.4 % 12/02/22 14:32 [place] % (Auto) 7.1 % 12/02/22 14:32 Eos % (Auto) 0.0 % 12/02/22 14:32 Baso % (Auto) 0.2 % 12/02/22 14:32 Neut # (Auto) 7.45 K/uL (1.40-6.50) H 12/02/22 14:32 Lymph # (Auto) 0.65 K/uL (1.2-3.4) L 12/02/22 14:32 [place] # (Auto) 0.62 K/uL (0.11-0.59) H 12/02/22 14:32 Eos # (Auto) 0.00 K/uL (0-0.50) 12/02/22 14:32 Baso # (Auto) 0.02 K/uL (0-0.2) 12/02/22 14:32 Immature Gran # (Auto) 0.04 K/uL (0.01-0.20) 12/02/22 14:32 ESR 79 mm/hr (0-15) H 12/03/22 08:19 PT 11.7 Seconds (9.0-12.0) 12/02/22 14:32 INR 1.1 (0.9-1.1) 12/02/22 14:32 APTT 32.3 Seconds (21.0-31.0) H 12/02/22 14:32 PTT Ratio 1.1 12/02/22 14:32 Sodium 135 mmol/L (136-145) L 12/03/22 08:19 Potassium 3.4 mmol/L (3.5-5.1) L 12/03/22 08:19 Chloride 101 mmol/L (98-107) 12/03/22 08:19 Carbon Dioxide 25 mmol/L (21-32) 12/03/22 08:19 Anion Gap 9 (3-11) 12/03/22 08:19 BUN 10 mg/dl (6-23) 12/03/22 08:19 Creatinine 0.83 mg/dl (0.6-1.4) 12/03/22 08:19 Est Cr Clr Drug Dosing 115.1 ml/min 12/03/22 08:19 Est GFR ( Amer) 134.0 ml/min 12/03/22 08:19 Est GFR (Non-Af Amer) 115.6 ml/min 12/03/22 08:19 BUN/Creatinine Ratio 12.0 (10-20) 12/03/22 08:19 Glucose 116 mg/dl (70-99(Fasting)) H 12/03/22 08:19 Lactate 1.6 mmol/L (0.4-2.0) 12/02/22 14:32 Calcium 9.2 mg/dl (8.6-10.3) 12/03/22 08:19 Magnesium 1.8 mg/dl (1.7-2.4) 12/03/22 08:19 Total Bilirubin 4.6 mg/dl (0.2-1.0) H D 12/03/22 08:19 Direct Bilirubin 1.4 mg/dl (0-0.2) H 12/02/22 14:32 AST 93 U/L (13-39) H 12/03/22 08:19 ALT 129 U/L (7-52) H 12/03/22 08:19 Alkaline Phosphatase 495 U/L (34-104) H 12/03/22 08:19 C-Reactive Protein 11.91 mg/dl (0-0.5) H 12/03/22 08:19 Total Protein 7.8 gm/dl (6.0-8.3) 12/03/22 08:19 Albumin 3.7 gm/dl (3.4-5.0) 12/03/22 08:19 Globulin 4.1 gm/dl (2.5-4.0) H 12/03/22 08:19 Albumin/Globulin Ratio 0.9 (0.9-2) 12/03/22 08:19 Procalcitonin 0.16 ng/ml (0-0.5) 12/02/22 14:32 Urine Color [place] 12/03/22 00:40 Urine Appearance Clear (Clear) 12/03/22 00:40 Urine pH 6.5 (4.5-7.5) 12/03/22 00:40 Ur Specific [place] 1.021 (1.000-1.030) 12/03/22 00:40 Urine Protein Trace (Negative) H 12/03/22 00:40 Urine Glucose (UA) Negative (Negative) 12/03/22 00:40 Urine Ketones Negative (Negative) 12/03/22 00:40 Urine Blood Negative (Negative) 12/03/22 00:40 Urine Nitrite Positive (Negative) A 12/03/22 00:40 Urine Bilirubin 2+ (Negative) H 12/03/22 00:40 Urine Urobilinogen Negative (Negative) 12/03/22 00:40 Ur Leukocyte Esterase Trace (Negative) H 12/03/22 00:40 Urine WBC (Auto) 1-5 /hpf (0-5) 12/03/22 00:40 Urine RBC (Auto) 0-4 /hpf (0-4) 12/03/22 00:40 U Hyaline Cast (Auto) 0 /lpf (0-5) 12/03/22 00:40 U Epithel Cells (Auto) 0-5 /lpf (0-5) 12/03/22 00:40 Urine Bacteria (Auto) Negative (Negative) 12/03/22 00:40 Anaplasma Smear See Comment 12/02/22 14:32 Lyme Disease IgG Ab Negative (Negative) 12/02/22 14:32 Lyme Disease IgM Ab Negative (Negative) 12/02/22 14:32 C.trachomatis RNA Not Detected (NotDetected) 12/03/22 00:40 N.gonorrhoeae RNA Not Detected (NotDetected) 12/03/22 00:40 SARS-CoV-2, RNA, NAAT NEGATIVE (NEGATIVE) 12/02/22 16:33 Impressions Wrist X-Ray 12/02/22 14:10 XR wrist LT min 3V routine CLINICAL HISTORY: swelling TECHNIQUE: 4 views of the left wrist were obtained. Comparison: None available at the time of this dictation. FINDINGS: There is no evidence of an acute fracture. Joint spaces are well-preserved. No soft tissue abnormality is seen. IMPRESSION: No evidence of acute osseous injury. ACT 112: Negative or not required by law. Electronically signed by: Andrew Love M.D. 12/02/2022 3:07 PM Hand X-Ray 12/03/22 07:00 XR hand RT min 3V routine CLINICAL HISTORY: acute inflam changes L>R hand PIP/MCP/carpal joint COMPARISON: None FINDINGS: Alignment of the right hand is anatomic. There is no acute fracture. Joint spaces are preserved. No erosive changes are identified. There are no osseous lesions. IMPRESSION: Unremarkable right hand radiographs. ACT 112: Negative or not required by law. Electronically signed by: Alexis Gordillo M.D. 12/03/2022 7:41 AM
[2022-12-03] MEDS: ENOXAPARIN INJ 40 MG/0.4 ML SYR SQ SCH (19:24)
[2022-12-03] MEDS: URSODIOL 250 MG TABLET PO SCH (20:52)
[2022-12-04] MEDS: RASPBERRY SYRUP 5 ML UDP PO SCH (08:45)
[2022-12-04] MEDS: sulfaSALAzine 500 MG TABLET PO SCH (08:45)
[2022-12-04] MEDS: CALCIUM 600MG + VIT D 400 IU TAB PO SCH (08:45)
[2022-12-04] MEDS: VANCOMYCIN HCL 125 MG/2.5ML SOLN PO SCH (08:45)
[2022-12-04] MEDS: URSODIOL 250 MG PO SCH (08:45)
[2022-12-04] MEDS: CETIRIZINE HCL 10 MG TABLET PO SCH (08:45)
[2022-12-04] MEDS ORDERED: predniSONE 50 MG TAB PO SCH (09:00)
--- NOTE | 2022-12-04 12:53 | Discharge Summary ---
Date of Service December 04, 2022 Admission HPI Per Admitting Provider Mr. Jara is a 32 year old male that presented to the ED today with complaints of a swollen right wrist. He reports that he fell asleep while reading his book on Tuesday and woke up with his left wrist swollen, red and tender to touch. He denies any recent trauma. He denies fever or chills. He has Ulcerative Colitis and is on Avsola for treatment. He was on Humira and was switched to Avsola and has received loading doses with first initial infusion on 11/23/22. He follows with Dr. Hay with GI for his UC. He is taking Vancomycin for the past three weeks for recurrent C-Diff. A wrist x-ray was performed and negative for acute fractures. Most recent ECHO 11/2021: EF 60-65%, LV wall motion normal without pericardial effusion or signs of pericarditis. Additional PMH includes Osteoporosis and Primary Sclerosing Cholangitis (On Ursodiol) and H/O cholecystectomy. No tobacco, alcohol, or recreational drug use. He, at baseline, is independent with his ADL's and eats a low fat diet. In ED, no Leukocytosis, elevated LFT's which is not uncommon to him as related to his biologic medication treatment. On 10/2022 AST 143, ALT 175, AlkPhos 774; Today the AST is 80, ALT is 135, and Alk Phos is 595. CRP is elevated at 3.69, procalcitonin negative. Lyme negative. Patient denies GOULD, dizziness, chest pain, palpitations, SOB, cough, recent illness, recent falls or trauma, urinary changes, bowel changes, hematochezia, appetite changes. Pt is sitting in his hospital bed in no apparent distress. He does have tenderness with passive ROM in his bilateral elbow and wrist joints. He has a difficult time with clenching both fists L > R. Erythema noted on left wrist. No tenderness noted in his knuckles, joints at base of tows, shoulders, or knees. Patient will be admitted for further evaluation and management. Please see A/P for further details. Admission Exam Per Admitting Provider Neuro: AAOx4, PERRLA, no aphagia, memory changes, CNII-XII grossly intact HEENT: head normocephalic, moist mucus membranes CV: S1/S2, (-) M/G/R, (-) edema, cap refill < 3 seconds Resp: Lungs CTA in all aponte. On RA GI: Abdomen S/NT/ND, Ax4 bowel sounds, (-) CVA tenderness Musculoskeletal: 5/5 B/L UE strength, 5/5 B/L LE strength. No gait disturbance Skin: (-) rashes , (-) erythema. Psych: euthymic mood Principal Diagnosis Arthritis related with inflammatory bowel disease. Discharge Exam Constitutional: WD/WN, vitals as above, NAD, sitting up in bed, pleasant, conversing easily Respiratory: normal respiratory effort, lungs clear to auscultation, no wheeze, rales, rhonchi. Normal insp/exp effort, no accessory muscle use Cardiovascular: RRR, no murmur, no edema Vessels: no JVD or carotid bruit Chest: normal inspection of chest Abdomen: normal bowel sounds, soft, nontender, no hepatosplenomegaly Musculoskeletal: Bilateral MCP and wrist swelling present, no overlying erythema. Improvement noted today compared to yesterday. Skin: no rashes, warm and dry normal turgor Neurologic: PERRL, EOMI, accommodation nl, no face palsy, no dysarthria CN's II- XI intact bilaterally and moves all extremities Psychiatric: A+Ox3, euthymic affect Discharge Data Allergies Allergy/AdvReac Type Severity Reaction Status Date / Time No Known Allergies Allergy Verified 12/02/22 18:03 Consultations 12/02/22 16:39 ED Decision to Admit Stat 12/02/22 18:03 Consult Orthopedic Surgery Routine 12/02/22 21:57 Consult Gastroenterology Routine Hospital Course (1) Polyarthralgia: (2) Acute pain of left wrist: (3) Septic arthritis: (4) Ulcerative colitis: (5) PSC (primary sclerosing cholangitis): (6) Elevated LFTs: (7) Clostridium difficile carrier: (8) Osteoporosis: Plan 32 y/o presents with right wrist pain and swelling. R/O septic joint. History of Ulcerative Colitis. Follows with GI. IV abx, await blood cultures and fungal cultures. Lyme negative. CRP elevated; check ESR. Additional PMH includes PSC and Osteoporosis. Polyarthralgia: Likely arthritis related with inflammatory bowel disease. History of UC, PSC presented with symmetrical bilateral joint pain and swelling(bilateral wrist, MCP joints, elbow and knee). Left wrist more painful compared to other joints X-ray of both hands unremarkable No Leukocytosis ESR and CRP elevated Lyme negative During the hospitalization, GI was consulted; recommended 1 dose of IV methylprednisolone and starting prednisone 50 mg once daily for a month. Also, recommended to start sulfasalazine. After discussion with GI and pharmacy; patient was started on 1 g/day of sulfasalazine. Plan is to increase the dose as tolerated up to 3 g/day. Patient will follow-up with GI within a month to taper down on the prednisone. Also patient has a follow-up with rheumatology. Patient's pain and swelling improved overnight after starting steroids. All other medication were continued as before. Total Time Total Time Spent Total Time Spent (In Minutes): 45 Total Time Includes: Examination of the Patient, Discharge Planning, Medication Reconciliation, Communication With Other Providers and Other Discharge Plan Discharge Items Patient Disposition: Home - Self-Care Reason For Visit: POLYARTHRITIS Discharge Diagnosis: Arthritis related with inflammatory bowel disease. Activity: Resume your previous activity Non-emergency contact: Primary Care Provider Call non-emergency contact if: you have any medication questions and your symptoms worsen Follow-up/Referrals: Regan Mandujano MD [Physician] - (Date & Time 12/15/2022 3:20 PM Provider Regan Mandujano MD Department Rheumatology [facility] ) Michael Branch DO [Primary Care Provider] - (Date & Time 12/10/2022 11:20 AM Provider Michael Branch DO Department Family Practice [facility] ) Diet: Regular Addtl Attending Provider Instructions: You were admitted to the hospital with Polyarthritis due to inflammatory bowel disease. You are prescribed following medications: 1) Prednisone 50 mg tablet once daily. Please follow-up with rheumatology and GI. The doses will be tapered based on the response. 2) Sulfasalazine 500 mg tablets. Please take 1 tablet twice daily for 1 week. If you are able to tolerate it without any GI discomfort; you can increase it to 2 tablets twice daily for a week. If you continue to tolerate it well; you can increase it up to 3 tablets twice a daily from then on. An appointment is scheduled with her primary care doctor for next week. Please follow-up with rheumatology and gastroenterology as scheduled. Pending Studies at Discharge: No Stand-Alone Forms: My [facility], Smoking Cessation Medications and DC Order Prescriptions: New sulfasalazine [Azulfidine] 500 mg Tablet See Taper PO BID Qty: 120 0RF Taper: Taper, Blank 500 mg TWICE A DAY for 7 Days 1,000 mg TWICE A DAY for 7 Days 1,500 mg TWICE A DAY for 30 Days prednisone 50 mg Tablet 50 mg PO DAILY 30 Days Qty: 30 0RF Continued ursodiol 250 mg Tablet 500 mg PO QAM vancomycin 125 mg capsule 125 mg PO DAILY ursodiol 250 mg tablet 250 mg PO QPM cetirizine [Zyrtec] 10 mg Tablet 10 mg PO DAILY calcium carbonate-vitamin D3 [Calcium 600 + D(3)] 600 mg-10 mcg (400 unit) Tablet 2 tab PO DAILY Discharge Orders: Discharge Order (Routine); Ordered 12/04/22 Ordered By: Damien Piña Admission Data Admit Date/Time: 12/02/22 16:40 Attending Provider: Damine Piña Admit Provider: Mary Grace Contreras Primary Care Provider: Michael Branch Other Providers: Ricki Foote ; Mary Grace Contreras ; Ramez Bowers
== END 2022-12-04 13:33 | disposition home or self-care (01) ==
LOC: ED 13:08 → EDINP 13:08 → SUATTDRO 16:40 → 2N 18:22

== ENCOUNTER 2023-01-05 19:16 | Inpatient (IN) ==
[2023-01-05] MEDS ORDERED: FAMOTIDINE 20MG IV PUSH 20 MG/5 ML SYR IV STA (19:21)
[2023-01-05] MEDS ORDERED: diphenhydrAMINE 50 MG/ML VIAL IV STA (19:21)
[2023-01-05] MEDS ORDERED: methylPREDNISolone 125 MG/2 ML VIAL IV STA (19:21)
--- NOTE | 2023-01-05 19:21 | ED Triage Note ---
Date of Service January 05, 2023 History of Present Illness This patient was briefly evaluated while in triage. An abbreviated physical exam was performed. This patient is a 32-year-old Male who presents to the ED for evaluation of allergic reaction. Increased lethargy. Did get the shingle shot 5 days ago. Went to PCP and started on hydroxyzine without relief. Started with fever today. Physical Exam Limited Triage Exam: VITALS: Vitals are noted on the nurse's note and reviewed by myself. Vital signs stable. GENERAL: Well-developed, well-nourished, white male, who is in mild discomfort. HEART: Regular rate and rhythm without murmurs gallops or rubs. LUNGS: Clear to auscultation bilaterally without wheezes, rales or rhonchi. No retractions or accessory muscle use. NEURO: Patient was alert and oriented to person place and time. CN II through XI I grossly intact. Initial orders for labs and / or imaging were placed and patient was placed in the waiting area until a bed is available. Please see further documentation for the full ED course. MDM / Impression Impression Impression: Weakness, Tachycardia, Fever, Rash, Immunocompromised
[2023-01-05] MEDS ORDERED: SODIUM CHLORIDE 0.9% 1000ML 1,000 ML IV SCH (19:30)
[2023-01-05 19:46] LABS: Basophils # (auto) 0.03 K/uL (0-0.2); Basophils % (auto) 0.5 %; Eosinophils # (auto) 0.32 K/uL (0-0.50); Eosinophils % (auto) 5.3 %; Hematocrit (blood only) 54.5 % (42.0-52.0); Immature Granulocytes # (auto) 0.03 K/uL (0.01-0.20); Immature Granulocytes % (auto) 0.5 %; Lymphocytes # (auto) 0.41 K/uL (1.2-3.4); Lymphocytes % (auto) 6.7 %; Mean Corpuscular Hemoglobin 29.4 pg (25.0-34.0); Mean Corpuscular Volume 89.1 fL (80.0-100.0); Mean Platelet Volume 10.7 fL (9.4-12.4); Monocytes # (auto) 0.39 K/uL (0.11-0.59); Monocytes % (auto) 6.4 %; Neutrophils # (auto) 4.91 K/uL (1.40-6.50); Neutrophils % (auto) 80.6 %; Platelet Count 274 K/uL (130-400); RDW Coefficient of Variation 14.4 % (11.5-14.5); RDW Standard Deviation 46.5 fL (36.4-46.3); Red Blood Count 6.12 M/uL (4.70-6.10); White Blood Count 6.09 K/ul (4.8-10.8)
[2023-01-05 20:06] LABS: Albumin Globulin Ratio 1.1 (0.9-2); Albumin Level 3.9 gm/dl (3.4-5.0); BUN Creatinine Ratio 10.7 (10-20); Bilirubin,Total 4.8 mg/dl (0.2-1.0); Calcium 9.2 mg/dl (8.6-10.3); Creatinine Clr Calc Pharmacy 87.7 ml/min; Est GFR (African American) 99.5 ml/min; Est GFR (Non-African American) 85.8 ml/min; Globulin 3.7 gm/dl (2.5-4.0); Potassium 4.2 mmol/L (3.5-5.1); Total Protein 7.6 gm/dl (6.0-8.3)
[2023-01-05 20:24] LABS: Lyme Ab IgG w/WB Rflx Negative (Negative); Lyme Ab IgM w/WB Rflx Negative (Negative)
[2023-01-05] MEDS ORDERED: CEFEPIME 2,000 MG/20 ML VIAL IV STA (20:25)
[2023-01-05] MEDS ORDERED: ACETAMINOPHEN 1,000 MG/100 ML VIAL IV STA (20:41)
[2023-01-05] MEDS ORDERED: SODIUM CHLORIDE 0.9% 1000ML 1,000 ML IV ONE (20:51)
--- NOTE | 2023-01-05 21:28 | Emergency Department Note ---
Impression & Plan Weakness, Tachycardia, Fever, Rash, Immunocompromised ED Provider Note NAME: ANDERSON MEZA AGE: 32 SEX: M : 1990 ARRIVES VIA: Walk-In INFORMANT: [Patient][family] ED PROVIDER(S): [Silvio Smith MD] CHIEF COMPLAINT: Allergic reaction HISTORY OF PRESENT ILLNESS: The patient is a 32-year-old male who presents to the ED with a rash and fatigue. The patient has a complex past medical history. He has ulcerative colitis and sclerosing cholangitis. He recently was diagnosed with arthritis from his inflammatory bowel disease. He is finishing a long prednisone taper. Patient is soon to be placed on Xeljanz. He was told to have the shingles vaccine before starting this medication. Patient had the shingles vaccination on Tuesday, 5 days ago. The patient saw his family doctor's office yesterday for a rash that he has noted for the last 4 days--the rash started 2 days after the shingles vaccination. He was given hydroxyzine. The rash had started on the back of his hands and the rash was itchy. He felt he was reacting to the shingles vaccination. The patient states that in the last 24 hours, the rash is spread to his face and the rest of his body. It is on his palms. The rash still itches. The hydroxyzine has not helped. He has felt extreme fatigue today and developed a fever. He has had some nausea. Because of the worsening situation, the patient presents for evaluation. PMHx/PSHx: See Below SOCIAL HISTORY: See Below. PHYSICAL EXAM: GENERAL: Patient is in no acute distress. HEENT: No acute trauma, normocephalic atraumatic, mucous membranes dry, no nasal congestion. No throat erythema or exudate. NECK: No stridor, no adenopathy, no meningismus, trachea is midline. LUNGS: Clear to auscultation bilaterally, no wheeze, no rhonchi, breath sounds equal. HEART: Tachycardic, regular rhythm, no murmurs ABDOMEN: Soft, nontender, bowel sounds positive, no peritonitis. EXTREMITIES: No cyanosis or edema, full range of motion of all the joints without pain or difficulty, no signs for acute trauma. NEUROLOGIC: Oriented x 3, no acute motor or sensory deficits, no focal weakness. Sleepy. SKIN: Patient has a slightly raised erythematous rash noted on the extremities, chest back and face. It is on his palms as well. It does lalitha. Rash is most extensive on the trunk, proximal legs and back. DIFFERENTIAL DIAGNOSIS: Vaccine reaction, bacteremia or sepsis, tickborne illness, electrolyte imbalance, dehydration, cellulitis, among others. EMERGENCY DEPARTMENT COURSE/PROCEDURES: Prior/Outside records reviewed: Recent discharge note. ECG per my interpretation: Indication was possible sepsis. The ECG shows a sinus tachycardia with a rate of 142. There is no ST elevation, no PVCs. The QTc is 433. Continuous Cardiac Monitoring per my interpretation: An order was placed for continuous cardiac monitoring. The monitor shows a rate of 130 with sinus tachycardia. Critical Care Note: I have personally spent 42 minutes of critical care time in the direct management of this patient. This includes bedside care, in terpretation of diagnostic studies, and testing, discussion with consultants, patient, and family members, and other required patient management activities. This 42 minutes is in excess of all separately billable procedures. MEDICAL DECISION MAKING: There is no leukocytosis or concerning anemia. There is a normal platelet count. Sed rate is slightly elevated at 25. There was a normal INR. Sodium slightly low, no renal failure. Lactic acid level was not elevated making severe sepsis less likely. Magnesium was low at 1.6. There were some liver enzyme elevations, this is chronic for the patient and consistent with his sclerosing cholangitis. Ammonia level was not elevated. C-reactive protein was elevated at 3.84, this is a decrease compared to recent testing. Procalcitonin level was not not elevated making severe bacterial infection less likely. The patient appeared to be in a euthyroid state. Urinalysis did not show infection. Respiratory bio fire was completely negative. Lyme disease testing was negative. Tickborne smear returned negative. Anaplasmosis, ehrlichiosis and babesiosis reference testing is currently pending. Chest film per my review showed a potential right lung infiltrate versus some atelectasis. On exam, the patient was febrile, tachycardic and he had a diffuse body rash. The patient was aggressively managed. He did receive IV Solu-Medrol, IV Benadryl, IV Pepcid. He received IV saline, 2 L. He received IV cefepime as empiric antibiotic coverage. He was given IV Tylenol. Given the patient's presentation, given the rash, given the tachycardia, given the fever, given his immunocompromise, I do think a hospital stay is warranted. At this point, the cause for the presentation is unclear. Certainly, a shingles vaccination reaction is possible. Sepsis or bacteremia is possible. Further work-up and care in the hospital is needed. I spoke with the patient and his family, I spoke with case management, the on- call hospitalist was consulted. DISPOSITION: Patient's presentation and findings warrant a hospital stay. Past Med/Surg History Medical History Back pain Clostridium difficile carrier Diarrhea Elevated LFTs Fecal urgency Frequent bowel movements GERD (gastroesophageal reflux disease) Osteoporosis Polyarthralgia PSC (primary sclerosing cholangitis) Septic arthritis Ulcerative colitis Unintentional weight loss Surgical History History of cholecystectomy History of colonoscopy History of ERCP History of esophagogastroduodenoscopy (EGD) History of oral surgery bone graft with dental implant History of wisdom tooth extraction Family History Grandmother Diabetes Other No family history of adverse response to anesthesia Social History Smoking Status: Never smoker Second Hand Exposure: No; Do You Dip or Chew Tobacco: No; Hx Alcohol Use: No Hx Substance Use: No Preferred Language: Romansh Communication Ability: Effective Sessions Clerk Required: No Beliefs That Will Affect Care: None Current Living Situation: Parent Current Living Situation Comment: with mother Altagracia Other Information That Helps Us Care for You: No Feels Safe at Home: Yes Safety Concerns: Feels Safe At This Time Assistive Devices: None Allergies Allergies Allergy/AdvReac Type Severity Reaction Status Date / Time vaccine adjuvant system, Allergy Severe Rash Verified 01/05/23 22:27 [id number] liposomal [From Shingrix (PF)] varicella-zoster virus Allergy Severe Rash Verified 01/05/23 22:27 glycoprotein E, recombinant [From Shingrix (PF)] Home Meds Home Medications Medication Instructions Recorded Confirmed ursodiol 250 mg tablet 500 mg PO QAM 01/05/21 01/05/23 calcium carbonate 600 mg-vitamin 2 tab PO DAILY 12/02/22 01/05/23 D3 10 mcg (400 unit) tablet (Calcium 600 + D(3)) cetirizine 10 mg tablet (Zyrtec) 10 mg PO DAILY 12/02/22 01/05/23 ursodiol 250 mg tablet 250 mg PO QPM 12/02/22 01/05/23 vancomycin 125 mg capsule 125 mg PO DAILY 12/02/22 01/05/23 Previous Rx's Medication Instructions Recorded sulfasalazine 500 mg tablet See Taper PO BID #120 tabs 12/04/22 (Azulfidine) Results & Data (ED) Vital Signs Vital Signs - 24 hr 01/05/23 19:19 01/05/23 19:36 01/05/23 19:33 Temperature 38.2 C H Temperature Source Oral Pulse Rate 162 H 150 H Pulse Rate [Apical] 153 H Pulse Rhythm [Apical] Pulse Strength [Apical] Respiratory Rate 18 17 Respiratory Effort / Characteristics Respiratory Depth Respiratory Pattern Blood Pressure 110/60 Blood Pressure [Left Arm] 106/80 Blood Pressure Mean 76 Blood Pressure Mean [Left Arm] 88 Blood Pressure Position [Left Arm] Pulse Oximetry 98 99 Oxygen Delivery Method Room Air Room Air Sepsis Recent Fever Within 48 Hours Yes Sepsis New/Unexplained Change in Mental Status No Sepsis Action Taken by Nursing No Action Required 01/05/23 20:09 01/05/23 22:20 01/05/23 20:53 Temperature 36.8 C Temperature Source Oral Pulse Rate Pulse Rate [Apical] 130 H 104 H 80 Pulse Rhythm [Apical] Regular Pulse Strength [Apical] Normal Respiratory Rate 20 16 16 Respiratory Effort / Characteristics Non-Labored Spontaneous Respiratory Depth Normal Normal Respiratory Pattern Regular Blood Pressure Blood Pressure [Left Arm] 114/81 115/74 113/79 Blood Pressure Mean Blood Pressure Mean [Left Arm] 92 87 90 Blood Pressure Position [Left Arm] Lying Pulse Oximetry 100 96 97 Oxygen Delivery Method Room Air Room Air Room Air Sepsis Recent Fever Within 48 Hours Sepsis New/Unexplained Change in Mental Status Sepsis Action Taken by Prison Medications Current Medication List: was personally reviewed by me Laboratory Data Attestation: I reviewed the patient's lab results. 01/05/23 19:28 01/05/23 19:28 Lab Results 01/05/23 01/05/23 01/05/23 Range/Units 19:28 19:28 19:28 WBC 6.09 (4.8-10.8) K/ul RBC 6.12 H (4.70-6.10) M/uL Hgb 18.0 (14.0-18.0) g/dl Hct 54.5 H (42.0-52.0) % MCV 89.1 (80.0-100.0) fL MCH 29.4 (25.0-34.0) pg MCHC 33.0 (32.0-36.0) g/dL RDW Std Deviation 46.5 H (36.4-46.3) fL RDW Coeff of Farzana 14.4 (11.5-14.5) % Plt Count 274 (130-400) K/uL MPV 10.7 (9.4-12.4) fL Immature Gran % (Auto) 0.5 % Neut % (Auto) 80.6 % Lymph % (Auto) 6.7 % [place] % (Auto) 6.4 % Eos % (Auto) 5.3 % Baso % (Auto) 0.5 % Neut # (Auto) 4.91 (1.40-6.50) K/uL Lymph # (Auto) 0.41 L (1.2-3.4) K/uL [place] # (Auto) 0.39 (0.11-0.59) K/uL Eos # (Auto) 0.32 (0-0.50) K/uL Baso # (Auto) 0.03 (0-0.2) K/uL Immature Gran # (Auto) 0.03 (0.01-0.20) K/uL ESR (0-15) mm/hr PT (9.0-12.0) Seconds INR (0.9-1.1) Sodium 132 L (136-145) mmol/L Potassium 4.2 (3.5-5.1) mmol/L Chloride 96 L (98-107) mmol/L Carbon Dioxide 26 (21-32) mmol/L Anion Gap 10 (3-11) BUN 12 (6-23) mg/dl Creatinine 1.12 (0.6-1.4) mg/dl Est Cr Clr Drug Dosing 87.7 ml/min Est GFR ( Amer) 99.5 ml/min Est GFR (Non-Af Amer) 85.8 ml/min BUN/Creatinine Ratio 10.7 (10-20) Glucose 100 H (70-99(Fasting)) mg/dl Lactate (0.4-2.0) mmol/L Calcium 9.2 (8.6-10.3) mg/dl Magnesium (1.7-2.4) mg/dl Total Bilirubin 4.8 H (0.2-1.0) mg/dl AST 134 H (13-39) U/L ALT 242 H (7-52) U/L Alkaline Phosphatase 665 H (34-104) U/L Ammonia (18-72) umol/L C-Reactive Protein (0-0.5) mg/dl Total Protein 7.6 (6.0-8.3) gm/dl Albumin 3.9 (3.4-5.0) gm/dl Globulin 3.7 (2.5-4.0) gm/dl Albumin/Globulin Ratio 1.1 (0.9-2) Procalcitonin (0-0.5) ng/ml TSH (0.300-4.500) uIu/ml Adenovirus (PCR) (NotDetected) Anaplasma Smear Babesia Smear B. pertussis DNA (PCR) (NotDetected) B.parapertussis DNA PCR (NotDetected) Lyme Disease IgG Ab Negative (Negative) Lyme Disease IgM Ab Negative (Negative) C. pneumoniae DNA (PCR) (NotDetected) Coronavirus OC43 (PCR) (NotDetected) Coronavirus HKU1 (PCR) (NotDetected) Coronavirus 229E (PCR) (NotDetected) SARS-CoV-2 (PCR) (NotDetected) Coronavirus NL63 (PCR) (NotDetected) Human Metapneumovir PCR (NotDetected) Influenza Type A (PCR) (NotDetected) Influenza Type B (PCR) (NotDetected) M. pneumoniae (PCR) (NotDetected) Parainfluenza 1 (PCR) (NotDetected) Parainfluenza 2 (PCR) (NotDetected) Parainfluenza 3 (PCR) (NotDetected) Parainfluenza 4 (PCR) (NotDetected) RSV (PCR) (NotDetected) Entero/Rhino (PCR) (NotDetected) 01/05/23 01/05/23 01/05/23 Range/Units 19:28 20:48 20:56 WBC (4.8-10.8) K/ul RBC (4.70-6.10) M/uL Hgb (14.0-18.0) g/dl Hct (42.0-52.0) % MCV (80.0-100.0) fL MCH (25.0-34.0) pg MCHC (32.0-36.0) g/dL RDW Std Deviation (36.4-46.3) fL RDW Coeff of Farzana (11.5-14.5) % Plt Count (130-400) K/uL MPV (9.4-12.4) fL Immature Gran % (Auto) % Neut % (Auto) % Lymph % (Auto) % [place] % (Auto) % Eos % (Auto) % Baso % (Auto) % Neut # (Auto) (1.40-6.50) K/uL Lymph # (Auto) (1.2-3.4) K/uL [place] # (Auto) (0.11-0.59) K/uL Eos # (Auto) (0-0.50) K/uL Baso # (Auto) (0-0.2) K/uL Immature Gran # (Auto) (0.01-0.20) K/uL ESR (0-15) mm/hr PT 12.3 H (9.0-12.0) Seconds INR 1.1 (0.9-1.1) Sodium (136-145) mmol/L Potassium (3.5-5.1) mmol/L Chloride (98-107) mmol/L Carbon Dioxide (21-32) mmol/L Anion Gap (3-11) BUN (6-23) mg/dl Creatinine (0.6-1.4) mg/dl Est Cr Clr Drug Dosing ml/min Est GFR ( Amer) ml/min Est GFR (Non-Af Amer) ml/min BUN/Creatinine Ratio (10-20) Glucose (70-99(Fasting)) mg/dl Lactate 1.5 (0.4-2.0) mmol/L Calcium (8.6-10.3) mg/dl Magnesium (1.7-2.4) mg/dl Total Bilirubin (0.2-1.0) mg/dl AST (13-39) U/L ALT (7-52) U/L Alkaline Phosphatase (34-104) U/L Ammonia (18-72) umol/L C-Reactive Protein (0-0.5) mg/dl Total Protein (6.0-8.3) gm/dl Albumin (3.4-5.0) gm/dl Globulin (2.5-4.0) gm/dl Albumin/Globulin Ratio (0.9-2) Procalcitonin (0-0.5) ng/ml TSH (0.300-4.500) uIu/ml Adenovirus (PCR) Not Detected (NotDetected) Anaplasma Smear Babesia Smear B. pertussis DNA (PCR) Not Detected (NotDetected) B.parapertussis DNA PCR Not Detected (NotDetected) Lyme Disease IgG Ab (Negative) Lyme Disease IgM Ab (Negative) C. pneumoniae DNA (PCR) Not Detected (NotDetected) Coronavirus OC43 (PCR) Not Detected (NotDetected) Coronavirus HKU1 (PCR) Not Detected (NotDetected) Coronavirus 229E (PCR) Not Detected (NotDetected) SARS-CoV-2 (PCR) Not Detected (NotDetected) Coronavirus NL63 (PCR) Not Detected (NotDetected) Human Metapneumovir PCR Not Detected (NotDetected) Influenza Type A (PCR) Not Detected (NotDetected) Influenza Type B (PCR) Not Detected (NotDetected) M. pneumoniae (PCR) Not Detected (NotDetected) Parainfluenza 1 (PCR) Not Detected (NotDetected) Parainfluenza 2 (PCR) Not Detected (NotDetected) Parainfluenza 3 (PCR) Not Detected (NotDetected) Parainfluenza 4 (PCR) Not Detected (NotDetected) RSV (PCR) Not Detected (NotDetected) Entero/Rhino (PCR) Not Detected (NotDetected) 01/05/23 01/05/23 01/05/23 Range/Units 21:03 21:03 21:03 WBC (4.8-10.8) K/ul RBC (4.70-6.10) M/uL Hgb (14.0-18.0) g/dl Hct (42.0-52.0) % MCV (80.0-100.0) fL MCH (25.0-34.0) pg MCHC (32.0-36.0) g/dL RDW Std Deviation (36.4-46.3) fL RDW Coeff of Farzana (11.5-14.5) % Plt Count (130-400) K/uL MPV (9.4-12.4) fL Immature Gran % (Auto) % Neut % (Auto) % Lymph % (Auto) % [place] % (Auto) % Eos % (Auto) % Baso % (Auto) % Neut # (Auto) (1.40-6.50) K/uL Lymph # (Auto) (1.2-3.4) K/uL [place] # (Auto) (0.11-0.59) K/uL Eos # (Auto) (0-0.50) K/uL Baso # (Auto) (0-0.2) K/uL Immature Gran # (Auto) (0.01-0.20) K/uL ESR 25 H (0-15) mm/hr PT (9.0-12.0) Seconds INR (0.9-1.1) Sodium (136-145) mmol/L Potassium (3.5-5.1) mmol/L Chloride (98-107) mmol/L Carbon Dioxide (21-32) mmol/L Anion Gap (3-11) BUN (6-23) mg/dl Creatinine (0.6-1.4) mg/dl Est Cr Clr Drug Dosing ml/min Est GFR ( Amer) ml/min Est GFR (Non-Af Amer) ml/min BUN/Creatinine Ratio (10-20) Glucose (70-99(Fasting)) mg/dl Lactate (0.4-2.0) mmol/L Calcium (8.6-10.3) mg/dl Magnesium (1.7-2.4) mg/dl Total Bilirubin (0.2-1.0) mg/dl AST (13-39) U/L ALT (7-52) U/L Alkaline Phosphatase (34-104) U/L Ammonia (18-72) umol/L C-Reactive Protein (0-0.5) mg/dl Total Protein (6.0-8.3) gm/dl Albumin (3.4-5.0) gm/dl Globulin (2.5-4.0) gm/dl Albumin/Globulin Ratio (0.9-2) Procalcitonin 0.30 (0-0.5) ng/ml TSH (0.300-4.500) uIu/ml Adenovirus (PCR) (NotDetected) Anaplasma Smear See Comment Babesia Smear See Comment B. pertussis DNA (PCR) (NotDetected) B.parapertussis DNA PCR (NotDetected) Lyme Disease IgG Ab (Negative) Lyme Disease IgM Ab (Negative) C. pneumoniae DNA (PCR) (NotDetected) Coronavirus OC43 (PCR) (NotDetected) Coronavirus HKU1 (PCR) (NotDetected) Coronavirus 229E (PCR) (NotDetected) SARS-CoV-2 (PCR) (NotDetected) Coronavirus NL63 (PCR) (NotDetected) Human Metapneumovir PCR (NotDetected) Influenza Type A (PCR) (NotDetected) Influenza Type B (PCR) (NotDetected) M. pneumoniae (PCR) (NotDetected) Parainfluenza 1 (PCR) (NotDetected) Parainfluenza 2 (PCR) (NotDetected) Parainfluenza 3 (PCR) (NotDetected) Parainfluenza 4 (PCR) (NotDetected) RSV (PCR) (NotDetected) Entero/Rhino (PCR) (NotDetected) 01/05/23 01/05/23 01/05/23 Range/Units 21:03 21:03 21:18 WBC (4.8-10.8) K/ul RBC (4.70-6.10) M/uL Hgb (14.0-18.0) g/dl Hct (42.0-52.0) % MCV (80.0-100.0) fL MCH (25.0-34.0) pg MCHC (32.0-36.0) g/dL RDW Std Deviation (36.4-46.3) fL RDW Coeff of Farzana (11.5-14.5) % Plt Count (130-400) K/uL MPV (9.4-12.4) fL Immature Gran % (Auto) % Neut % (Auto) % Lymph % (Auto) % [place] % (Auto) % Eos % (Auto) % Baso % (Auto) % Neut # (Auto) (1.40-6.50) K/uL Lymph # (Auto) (1.2-3.4) K/uL [place] # (Auto) (0.11-0.59) K/uL Eos # (Auto) (0-0.50) K/uL Baso # (Auto) (0-0.2) K/uL Immature Gran # (Auto) (0.01-0.20) K/uL ESR (0-15) mm/hr PT (9.0-12.0) Seconds INR (0.9-1.1) Sodium (136-145) mmol/L Potassium (3.5-5.1) mmol/L Chloride (98-107) mmol/L Carbon Dioxide (21-32) mmol/L Anion Gap (3-11) BUN (6-23) mg/dl Creatinine (0.6-1.4) mg/dl Est Cr Clr Drug Dosing ml/min Est GFR ( Amer) ml/min Est GFR (Non-Af Amer) ml/min BUN/Creatinine Ratio (10-20) Glucose (70-99(Fasting)) mg/dl Lactate (0.4-2.0) mmol/L Calcium (8.6-10.3) mg/dl Magnesium 1.6 L (1.7-2.4) mg/dl Total Bilirubin (0.2-1.0) mg/dl AST (13-39) U/L ALT (7-52) U/L Alkaline Phosphatase (34-104) U/L Ammonia 37.0 (18-72) umol/L C-Reactive Protein 3.84 H (0-0.5) mg/dl Total Protein (6.0-8.3) gm/dl Albumin (3.4-5.0) gm/dl Globulin (2.5-4.0) gm/dl Albumin/Globulin Ratio (0.9-2) Procalcitonin (0-0.5) ng/ml TSH 1.774 (0.300-4.500) uIu/ml Adenovirus (PCR) (NotDetected) Anaplasma Smear Babesia Smear B. pertussis DNA (PCR) (NotDetected) B.parapertussis DNA PCR (NotDetected) Lyme Disease IgG Ab (Negative) Lyme Disease IgM Ab (Negative) C. pneumoniae DNA (PCR) (NotDetected) Coronavirus OC43 (PCR) (NotDetected) Coronavirus HKU1 (PCR) (NotDetected) Coronavirus 229E (PCR) (NotDetected) SARS-CoV-2 (PCR) (NotDetected) Coronavirus NL63 (PCR) (NotDetected) Human Metapneumovir PCR (NotDetected) Influenza Type A (PCR) (NotDetected) Influenza Type B (PCR) (NotDetected) M. pneumoniae (PCR) (NotDetected) Parainfluenza 1 (PCR) (NotDetected) Parainfluenza 2 (PCR) (NotDetected) Parainfluenza 3 (PCR) (NotDetected) Parainfluenza 4 (PCR) (NotDetected) RSV (PCR) (NotDetected) Entero/Rhino (PCR) (NotDetected) Administered Medications Magnesium Sulfate/Dextrose (Magnesium Sulfate / D5w) 1 gm in 100 mls @ 50 mls/hr IV Q2H [facility] Stop: 01/06/23 01:59 Last Admin: 01/06/23 00:13 Dose: 50 mls/hr Documented By: SOFA INSPECTOR Infusion: 01/06/23 00:13 Dose: 50 mls/hr Documented By: SOFA INSPECTOR Admin: 01/05/23 22:18 Dose: 50 mls/hr Documented By: Sodium Chloride (Nss 1000ml) 1,000 mls @ 100 mls/hr IV .Q10H STA Stop: 01/06/23 08:35 Last Admin: 01/06/23 00:00 Dose: 100 mls/hr Documented By: SOFA INSPECTOR Discontinued Medications Diphenhydramine HCl (Diphenhydramine 50 Mg/Ml Vial) 50 mg IV NOW STA Stop: 01/05/23 19:22 Last Admin: 01/05/23 19:30 Dose: 50 mg Documented By: Famotidine (Pepcid 20mg Iv Push) 20 mg in 5 mls @ 2.5 mls/min IV NOW STA Stop: 01/05/23 19:22 Last Admin: 01/05/23 19:30 Dose: 2.5 mls/min Documented By: Sodium Chloride (Nss 1000ml) 1,000 mls @ 999 mls/hr IV .Q1H1M MARTIN Stop: 01/05/23 20:30 Last Infusion: 01/05/23 20:32 Dose: 0 mls/hr Documented By: Admin: 01/05/23 19:31 Dose: 999 mls/hr Documented By: Cefepime HCl (Maxipime) 2,000 mg in 20 mls @ 5 mls/min IV NOW STA; Protocol Stop: 01/05/23 20:28 Last Admin: 01/05/23 20:51 Dose: 5 mls/min Documented By: Acetaminophen (Ofirmev) 1,000 mg in 100 mls @ 400 mls/hr IV NOW STA Stop: 01/05/23 20:55 Last Infusion: 01/05/23 21:03 Dose: 0 mls/hr Documented By: Admin: 01/05/23 20:47 Dose: 400 mls/hr Documented By: Sodium Chloride (Nss 1000ml) 1,000 mls @ 999 mls/hr IV .Q1H1M ONE Stop: 01/05/23 21:51 Last Infusion: 01/05/23 22:01 Dose: 0 mls/hr Documented By: Admin: 01/05/23 20:59 Dose: 999 mls/hr Documented By: Methylprednisolone (Methylprednisolone 125 Mg/2 Ml Vial) 125 mg IV NOW STA Stop: 01/05/23 19:22 Last Admin: 01/05/23 19:30 Dose: 125 mg Documented By: Sulfasalazine (Sulfasalazine 500 Mg Tablet) 1,000 mg PO NOW STA Stop: 01/05/23 23:30 Last Admin: 01/05/23 23:45 Dose: 1,000 mg Documented By: SOFA INSPECTOR Imaging Data My Impression: Chest x-ray: Per my review, there is a potential right lower lung infiltrate versus some atelectasis. No pneumothorax. Discharge Plan Visit Data Chief Complaint: Allergic Reaction Stated Complaint: ALLERGIC REACTION ED Provider: Silvio Smith Discharge Problem: Weakness, Tachycardia, Fever, Rash, Immunocompromised Patient Disposition: Admitted As Inpatient Condition: Fair Discharge Instructions Interventions: ED Discharge Assessment Last Done: 01/05/23 23:00
[2023-01-05 21:47] LABS: Magnesium 1.6 mg/dl (1.7-2.4)
[2023-01-05 21:52] LABS: C Reactive Protein 3.84 mg/dl (0-0.5)
[2023-01-05] MEDS: MAGNESIUM SULFATE / D5W 1 GM/100 ML BAG IV SCH (22:18)
[2023-01-05 22:23] LABS: Adenovirus PCR Not Detected (NotDetected); Bordetella parapertussis PCR Not Detected (NotDetected); Bordetella pertussis PCR Not Detected (NotDetected); Chlamydia pneumoniae PCR Not Detected (NotDetected); Coronavirus 229E PCR Not Detected (NotDetected); Coronavirus CoV-2 (COVID19)PCR Not Detected (NotDetected); Coronavirus HKU1 PCR Not Detected (NotDetected); Coronavirus NL63 PCR Not Detected (NotDetected); Coronavirus OC43PCR Not Detected (NotDetected); Human Metapneumovirus PCR Not Detected (NotDetected); Influenza A PCR Not Detected (NotDetected); Influenza B PCR Not Detected (NotDetected); Mycoplasma pneumoniae PCR Not Detected (NotDetected); Parainfluenza Virus 1 PCR Not Detected (NotDetected); Parainfluenza Virus 2 PCR Not Detected (NotDetected); Parainfluenza Virus 3 PCR Not Detected (NotDetected); Parainfluenza Virus 4 PCR Not Detected (NotDetected); Respiratory Syncytial VirusPCR Not Detected (NotDetected); Rhinovirus/Enterovirus PCR Not Detected (NotDetected)
--- NOTE | 2023-01-05 22:28 | History & Physical Report ---
Date of Service January 05, 2023 Assessment & Plan (1) Hypersensitivity reaction: Plan: Drug rash Secondary to recent Shingrix vaccine Fever secondary to drug reaction No obvious bacterial source for now ulcerative colitis/primary sclerosing cholangitis, patient follows with [facility], Xeljanz contemplated for autoimmune disease hx polyarthralgia/enteropathic arthritis IBS (diarrhea predominant) history C. difficile on chronic suppression Rx chronic anemia, hemoglobin better than baseline likely secondary to hemoconcentration Medical telemetry Add Shingrix to patient's allergy/ADR list Antihistaminic as needed May benefit from additional steroid Rx/Dermatology consultation if rash does not improve. CS IVF Hold off on additional antibiotic Rx until bacterial source of infection identified. DVT prophylaxis per Lovenox subcu Full code Patient parents requesting updates from providers. Mr. Kali Jara (father), contact #[phone] Ms. Altagracia Lopez (mother), contact #[phone]. Text document was generated using [employer] voice recognition software. It may contain grammatical or spelling errors. Kindly contact undersigned for clarification of any documentation item in question. History of Present Illness Chief Complaint: Worsening rash, weakness, lethargy as per records Primary Care Provider: Michael Branch DO History obtained from patient, family, and records. Medical history significant for ulcerative colitis, primary sclerosing cholangitis, polyarthralgia/enteropathic arthritis as per records, bronchial asthma, IBS (diarrhea predominant ), history C. difficile on chronic suppression Rx, chronic anemia (baseline hemoglobin of 13). Recent confinement last month for polyarthralgia attributed to arthritis of inflammatory bowel disease. Patient discharged on sulfasalazine Rx. Patient received Shingrix vaccine last week in preparation for Xeljanz Rx for patient's autoimmune disease. Few days ago, patient noted painful mildly pruritic rash gradually spreading all over his body. No headache, no chest pain, no SOB, no abdominal pain, no dysuria, no diarrhea symptoms. Poor appetite. Patient seen at PCPs office yesterday. Hydroxyzine prescribed for urticaria. Worsening symptoms at home and patient noted to be sleepy. Patient denies visual symptoms. Patient directed to ER for evaluation. Solu-Medrol, Benadryl, famotidine, Cefepime administered at the ER. Patient currently feels much better and rash improving as per family. Medical History as above Surgical History : Cholecystectomy Family History : DM, heart disease Personal/Social history : Non-smoker, no EtOH intake, [employer] business Allergies Allergy/AdvReac Type Severity Reaction Status Date / Time vaccine adjuvant system, Allergy Severe Rash Verified 01/05/23 22:27 AS01B liposomal [From Shingrix (PF)] varicella-zoster virus Allergy Severe Rash Verified 01/05/23 22:27 glycoprotein E, recombinant [From Shingrix (PF)] Home Medications Medication Instructions Recorded Confirmed Type ursodiol 250 mg tablet 500 mg PO QAM 01/05/21 01/05/23 History calcium carbonate 600 mg-vitamin 2 tab PO DAILY 12/02/22 01/05/23 History D3 10 mcg (400 unit) tablet (Calcium 600 + D(3)) cetirizine 10 mg tablet (Zyrtec) 10 mg PO DAILY 12/02/22 01/05/23 History ursodiol 250 mg tablet 250 mg PO QPM 12/02/22 01/05/23 History vancomycin 125 mg capsule 125 mg PO DAILY 12/02/22 01/05/23 History sulfasalazine 500 mg tablet See Taper PO BID #120 tabs 12/04/22 01/05/23 Rx (Azulfidine) Past Med/Surg History Medical History Back pain Clostridium difficile carrier Diarrhea Elevated LFTs Fecal urgency Frequent bowel movements GERD (gastroesophageal reflux disease) Osteoporosis Polyarthralgia PSC (primary sclerosing cholangitis) Septic arthritis Ulcerative colitis Unintentional weight loss Surgical History History of cholecystectomy History of colonoscopy History of ERCP History of esophagogastroduodenoscopy (EGD) History of oral surgery bone graft with dental implant History of wisdom tooth extraction Family History Grandmother Diabetes Other No family history of adverse response to anesthesia Social History Smoking Status: Never smoker Second Hand Exposure: No; Do You Dip or Chew Tobacco: No; Hx Alcohol Use: No Hx Substance Use: No Preferred Language: Angolan Communication Ability: Effective Fusing Machine Tender Required: No Beliefs That Will Affect Care: None Current Living Situation: Parent Current Living Situation Comment: with mother Altagracia Other Information That Helps Us Care for You: No Feels Safe at Home: Yes Safety Concerns: Feels Safe At This Time Assistive Devices: None Review of Systems Review of Systems: As per HPI, all other systems reviewed and negative Physical Exam Physical Exam: GENERAL: Slightly uncomfortable, no respiratory distress SKIN: Pallor, generalized maculopapular rashes (some scaling noted on rash over circumoral area), warm HEENT: Pale palpebral conjunctivae, no ptosis, dry buccal mucosa NECK : Supple, no tenderness CHEST : CTA, no tenderness HEART : RRR, no obvious murmurs ABDOMEN: Some distention, nontender EXTREMITIES : No LE swelling/tenderness, no other conspicuous deformities noted NEUROLOGIC : Coherent, no facial asymmetry, no other gross focality Results & Data Results & Data Vital Signs (Past 12 Hours) Vital Signs Temp Pulse Pulse Resp BP BP Pulse Ox 01/05/23 22:20 104 H 16 115/74 96 01/05/23 20:09 130 H 20 114/81 100 01/05/23 19:33 150 H 01/05/23 19:36 153 H 17 106/80 99 01/05/23 19:19 38.2 C H 162 H 18 110/60 98 O2 Del Method 01/05/23 22:20 Room Air 01/05/23 20:09 Room Air 01/05/23 19:33 01/05/23 19:36 Room Air 01/05/23 19:19 Room Air Laboratory Results Laboratory Results WBC 6.09 K/ul (4.8-10.8) 01/05/23 19:28 RBC 6.12 M/uL (4.70-6.10) H 01/05/23 19:28 Hgb 18.0 g/dl (14.0-18.0) 01/05/23 19:28 Hct 54.5 % (42.0-52.0) H 01/05/23 19:28 MCV 89.1 fL (80.0-100.0) 01/05/23 19:28 MCH 29.4 pg (25.0-34.0) 01/05/23 19:28 MCHC 33.0 g/dL (32.0-36.0) 01/05/23 19:28 RDW Std Deviation 46.5 fL (36.4-46.3) H 01/05/23: RDW Coeff of Farzana 14.4 % (11.5-14.5) 01/05/23: Plt Count 274 K/uL (130-400) 01/05/23 19: MPV 10.7 fL (9.4-12.4) 01/05/23 19: Immature Gran % (Auto) 0.5 % 01/05/23 19: Neut % (Auto) 80.6 % 01/05/23 19: Lymph % (Auto) 6.7 % 01/05/23: [place] % (Auto) 6.4 % 01/05/23: Eos % (Auto) 5.3 % 01/05/23: Baso % (Auto) 0.5 % 01/05/23: Neut # (Auto) 4.91 K/uL (1.40-6.50) 01/05/23 19: Lymph # (Auto) 0.41 K/uL (1.2-3.4) L 01/05/23: [place] # (Auto) 0.39 K/uL (0.11-0.59) 01/05/23: Eos # (Auto) 0.32 K/uL (0-0.50) 01/05/23: Baso # (Auto) 0.03 K/uL (0-0.2) 01/05/23: Immature Gran # (Auto) 0.03 K/uL (0.01-0.20) 01/05/23 19: ESR 25 mm/hr (0-15) H 01/05/23 21:03 Sodium 132 mmol/L (136-145) L 01/05/23: Potassium 4.2 mmol/L (3.5-5.1) 01/05/23 19: Chloride 96 mmol/L (98-107) L 01/05/23: Carbon Dioxide 26 mmol/L (21-32) 01/05/23 19: Anion Gap 10 (3-11) 01/05/23 19: BUN 12 mg/dl (6-23) 01/05/23 19:28 Creatinine 1.12 mg/dl (0.6-1.4) 01/05/23 19:28 Est Cr Clr Drug Dosing 87.7 ml/min 01/05/23 19:28 Est GFR ( Amer) 99.5 ml/min 01/05/23 19: Est GFR (Non-Af Amer) 85.8 ml/min 01/05/23 19:28 BUN/Creatinine Ratio 10.7 (10-20) 01/05/23 19:28 Glucose 100 mg/dl (70-99(Fasting)) H 01/05/23 19:28 Lactate 1.5 mmol/L (0.4-2.0) 01/05/23 20:48 Calcium 9.2 mg/dl (8.6-10.3) 01/05/23: Magnesium 1.6 mg/dl (1.7-2.4) L 01/05/23 21:03 Total Bilirubin 4.8 mg/dl (0.2-1.0) H 01/05/23 19:28 AST 134 U/L (13-39) H 01/05/23 19:28 ALT 242 U/L (7-52) H 01/05/23 19:28 Alkaline Phosphatase 665 U/L (34-104) H 01/05/23 19:28 Ammonia 37.0 umol/L (18-72) 01/05/23 21:18 C-Reactive Protein 3.84 mg/dl (0-0.5) H 01/05/23 21:03 Total Protein 7.6 gm/dl (6.0-8.3) 01/05/23 19:28 Albumin 3.9 gm/dl (3.4-5.0) 01/05/23 19:28 Globulin 3.7 gm/dl (2.5-4.0) 01/05/23 19:28 Albumin/Globulin Ratio 1.1 (0.9-2) 01/05/23 19:28 Procalcitonin 0.30 ng/ml (0-0.5) 01/05/23 21:03 TSH 1.774 uIu/ml (0.300-4.500) 01/05/23 21:03 Adenovirus (PCR) Not Detected (NotDetected) 01/05/23 20:56 Anaplasma Smear See Comment 01/05/23 21:03 Babesia Smear See Comment 01/05/23 21:03 B. pertussis DNA (PCR) Not Detected (NotDetected) 01/05/23 20:56 B.parapertussis DNA PCR Not Detected (NotDetected) 01/05/23 20:56 Lyme Disease IgG Ab Negative (Negative) 01/05/23 19:28 Lyme Disease IgM Ab Negative (Negative) 01/05/23 19:28 C. pneumoniae DNA (PCR) Not Detected (NotDetected) 01/05/23 20:56 Coronavirus OC43 (PCR) Not Detected (NotDetected) 01/05/23 20:56 Coronavirus HKU1 (PCR) Not Detected (NotDetected) 01/05/23 20:56 Coronavirus 229E (PCR) Not Detected (NotDetected) 01/05/23 20:56 SARS-CoV-2 (PCR) Not Detected (NotDetected) 01/05/23 20:56 Coronavirus NL63 (PCR) Not Detected (NotDetected) 01/05/23 20:56 Human Metapneumovir PCR Not Detected (NotDetected) 01/05/23 20:56 Influenza Type A (PCR) Not Detected (NotDetected) 01/05/23 20:56 Influenza Type B (PCR) Not Detected (NotDetected) 01/05/23 20:56 M. pneumoniae (PCR) Not Detected (NotDetected) 01/05/23 20:56 Parainfluenza 1 (PCR) Not Detected (NotDetected) 01/05/23 20:56 Parainfluenza 2 (PCR) Not Detected (NotDetected) 01/05/23 20:56 Parainfluenza 3 (PCR) Not Detected (NotDetected) 01/05/23 20:56 Parainfluenza 4 (PCR) Not Detected (NotDetected) 01/05/23 20:56 RSV (PCR) Not Detected (NotDetected) 01/05/23 20:56 Entero/Rhino (PCR) Not Detected (NotDetected) 01/05/23 20:56 Diagnostic Findings Chest x-ray as per my interpretation no congestion EKG as per my interpretation :Rate 140, sinus tachycardia, RAD, no ischemia
[2023-01-05] MEDS ORDERED: LORazepam 0.5 MG TAB PO PRN (22:33)
[2023-01-05] MEDS ORDERED: IBUPROFEN 200 MG TAB PO PRN (22:33)
[2023-01-05] MEDS ORDERED: ACETAMINOPHEN 325 MG TAB PO PRN (22:33)
[2023-01-05] MEDS ORDERED: diphenhydrAMINE Capsule 25 MG CAP PO PRN (22:35)
[2023-01-05] MEDS ORDERED: SODIUM CHLORIDE 0.9% 1000ML 1,000 ML IV STA (22:36)
[2023-01-05 22:37] LABS: INR 1.1 (0.9-1.1); Prothrombin Time 12.3 Seconds (9.0-12.0)
[2023-01-05] MEDS ORDERED: sulfaSALAzine 500 MG TABLET PO STA (23:29)
[2023-01-05] MEDS ORDERED: NON-FORMULARY MEDICATION (Ursodiol 250 mg tablet) PO SCH (23:29)
[2023-01-06] MEDS: MAGNESIUM SULFATE / D5W 1 GM/100 ML BAG IV SCH (00:13)
[2023-01-06 00:29] LABS: Appearance Urine Clear (Clear); Bilirubin Urine Negative (Negative); Blood Urine Negative (Negative); Color Urine Yellow; Glucose Urine UA Negative (Negative); Ketones Urine 1+ (Negative); Leukocyte Esterase Urine Negative (Negative); Nitrite Urine Negative (Negative); Protein Urine Negative (Negative); Specific Gravity Urine 1.015 (1.000-1.030); Urobilinogen Urine Negative (Negative)
[2023-01-06 06:12] LABS: Basophils # (auto) 0.01 K/uL (0-0.2); Basophils % (auto) 0.3 %; Eosinophils # (auto) 0.05 K/uL (0-0.50); Eosinophils % (auto) 1.6 %; Hemoglobin 13.1 g/dl (14.0-18.0); Immature Granulocytes # (auto) 0.01 K/uL (0.01-0.20); Immature Granulocytes % (auto) 0.3 %; Lymphocytes # (auto) 0.32 K/uL (1.2-3.4); Lymphocytes % (auto) 10.4 %; Mean Corpuscular Hemoglobin 29.3 pg (25.0-34.0); Mean Corpuscular Hgb Conc 32.8 g/dL (32.0-36.0); Mean Corpuscular Volume 89.5 fL (80.0-100.0); Mean Platelet Volume 10.5 fL (9.4-12.4); Monocytes % (auto) 3.3 %; Neutrophils # (auto) 2.58 K/uL (1.40-6.50); Neutrophils % (auto) 84.1 %; Platelet Count 155 K/uL (130-400); RDW Coefficient of Variation 13.9 % (11.5-14.5); RDW Standard Deviation 45.3 fL (36.4-46.3); Red Blood Count 4.47 M/uL (4.70-6.10); White Blood Count 3.07 K/ul (4.8-10.8)
[2023-01-06 06:35] LABS: Albumin Globulin Ratio 1.1 (0.9-2); Albumin Level 3.1 gm/dl (3.4-5.0); BUN Creatinine Ratio 16.5 (10-20); Bilirubin,Total 2.7 mg/dl (0.2-1.0); Calcium 7.5 mg/dl (8.6-10.3); Creatinine Clr Calc Pharmacy 124.3 ml/min; Est GFR (African American) 136.7 ml/min; Globulin 2.7 gm/dl (2.5-4.0); Magnesium 2.5 mg/dl (1.7-2.4); Potassium 4.2 mmol/L (3.5-5.1); Total Protein 5.8 gm/dl (6.0-8.3)
--- NOTE | 2023-01-06 06:46 | XRay Report ---
SINGLE VIEW CHEST CLINICAL HISTORY: Sepsis. FINDINGS: An AP, portable, upright chest radiograph is compared to chest x-ray and chest CT dated 11/09. The examination is degraded by portable technique and patient rotation. The cardiomediastina l silhouette is unremarkable. The lungs and pleural spaces are clear. No pneumothorax is seen. The claudia ny thorax is grossly intact. IMPRESSION: No active disease in the chest. ACT 112: Negative or not required by law. Electronically signed by: Silvio Moore M.D. 01/06/2023 6:45 AM
--- NOTE | 2023-01-06 08:47 | Electrocardiogram Report ---
Test Reason : Blood Pressure : / mmHG Vent. Rate : 142 BPM Atrial Rate : 142 BPM P-R Int : 116 ms QRS Dur : 074 ms QT Int : 282 ms P-R-T Axes : 072 112 057 degrees QTc Int : 433 ms Sinus tachycardia Borderline ECG When compared with ECG of 07-DEC-2021 09:26, Vent. rate has increased BY [address] no longer elevated in Inferior leads ST no longer elevated in Lateral leads Confirmed by Antonino Fong ([id number]) on 01/06/2023 8:46:37 AM Referred By: REFERRED SELF Confirmed By:Antonino Fong
[2023-01-06] MEDS ORDERED: ENOXAPARIN INJ 40 MG/0.4 ML SYR SQ SCH (09:00)
[2023-01-06] MEDS: CETIRIZINE HCL 10 MG TABLET PO SCH (09:03)
[2023-01-06] MEDS: sulfaSALAzine 500 MG TABLET PO SCH ×2 (09:03→20:21)
[2023-01-06] MEDS: RASPBERRY SYRUP 5 ML UDP PO SCH (09:04)
[2023-01-06] MEDS: URSODIOL PO SCH (09:05)
[2023-01-06] MEDS: VANCOMYCIN HCL 125 MG/2.5ML SOLN PO SCH (09:05)
[2023-01-06] MEDS ORDERED: methylPREDNISolone 40 MG in SYRINGE 0 ML IV SCH (16:00)
--- NOTE | 2023-01-06 17:07 | Hospitalist Progress Note ---
Date of Service January 06, 2023 Assessment & Plan (1) Hypersensitivity reaction: Plan 32-year-old male with PMH of ulcerative colitis, PSC, polyarthralgia/enteropathic arthritis, bronchial asthma, IBS [diarrhea predominant], C. difficile on chronic suppression treatment, chronic anemia [baseline hemoglobin of 13] was recently admitted for polyarthralgia attributed to arthritis of inflammatory bowel disease and was discharged on sulfasalazine treatment who received Shingrix vaccine on 12/31 and started developing rash on 01/02 that was spreading throughout the body with itchiness/uncomfortable sensation. Of note, patient received Shingrix vaccine last week in preparation for Xeljanz treatment for his autoimmune disease. Patient denies any headache or chest pain or shortness of breath or flulike illness or abnormal bowel habits. Patient denied any shortness of breath/wheezing/abdominal pain. He is being managed for the following: Hypersensitivity reaction Drug rash Patient presented with spreading maculopapular rash [see above] likely secondary to Shingrix vaccination Patient noted to have fever at presentation, likely secondary to drug reaction. Procalcitonin was negative. Will monitor off of antibiotic. labs in AM Patient received Solu-Medrol, Benadryl/famotidine in the ED with some relief. Shingrix vaccine added to patient's allergy/ADR list. At bedside exam, patient with improving comfort with regard to rash but it has not gone down per patient. We will continue with Solu-Medrol twice daily, Benadryl prn, cetirizine and famotidine and monitor overnight. If improving rash, then can be discharged with p.o. medications, if worsening, then will reach out to dermatology tomorrow. Plan of care communicated to the patient, who verbalized understanding. Closely monitor for any shortness of breath/abdominal pain/wheezing. Other chronic medical conditions: Ulcerative colitis/PSC: Patient follows [facility], Xeljanz contemplated for autoimmune disease. Polyarthralgia/enteropathic arthritis: Continue with sulfasalazine IBS [diarrhea-predominant, chronic anemia: Continue supportive measures as appropriate. DVT prophylaxis: Lovenox subcu Full code Ms. Altagracia Lopez (mother), contact #[phone]. Admission and Anticipated Discharge Date Admission Date: January 05, 2023 Subjective Patient seen and examined at bedside as a follow-up of hypersensitivity reaction/drug rash secondary to recent Shingrix vaccine. Patient was sitting semiupright in bed, on room air, NAD, reports getting comfortable with regard to rash but states the rash itself has not gone down. Patient denies any headache or fever or chills or runny nose or cough. Patient reports getting Shingrix vaccine last Tuesday and he reports developing maculopapular rash spreading throughout the body since 2 days after that. Patient reports eating okay and moving bowels at his baseline. Patient denies any belly pain or shortness of breath or wheezing. Physical Exam Physical Exam: GENERAL: Alert and oriented x3. NAD, on RA. HEENT: No pallor, no icterus. Pupils equal, round and reactive to light. Oral mucosa moist. NECK: No JVD, no neck masses. HEART: S1 and S2 heard. Regular rate and rhythm. No murmur, no gallop. RESPIRATORY SYSTEM: Normal AP diameter. No accessory muscle use. No wheezing, no crackles. ABDOMEN: Soft, bowel sounds present, nontender, no distention. CENTRAL NERVOUS SYSTEM: No facial droop. Speech is clear. Obeys simple co mmands. Moves extremities. EXTREMITIES: No edema, no erythema seen. Skin: extensive maculopapular rash, scaling noted circumoral area. Results & Data Results & Data Vital Signs (Past 12 Hours) Vital Signs Temp Pulse Pulse Resp BP Pulse Ox O2 Del Method 01/06/23 12:27 36.7 C 82 20 110/66 97 Room Air 01/06/23 08:00 66 01/06/23 07:56 37 C 90 20 122/66 98 Room Air
[2023-01-06] MEDS ORDERED: SODIUM CHLORIDE 0.9% 1000ML 1,000 ML IV ONE (19:42)
[2023-01-06] MEDS ORDERED: diphenhydrAMINE Capsule 25 MG CAP PO ONE (19:45)
[2023-01-06] MEDS: HYDROCORTISONE 2.5% CR 30 GM TUBE EXT SCH (20:18)
[2023-01-06] MEDS: FAMOTIDINE 20 MG in SYRINGE 3 ML IV SCH (20:35)
--- NOTE | 2023-01-06 20:52 | Communication Note ---
Date of Service: January 06, 2023 Notified by RN of petechiae on patient's fingers and palms. AP Possible vasculitic rash Hold Lovenox for now Continue steroids Dermatology consult in a.m.
[2023-01-06] MEDS ORDERED: URSODIOL PO SCH (21:00)
[2023-01-06 22:17] LABS: INR 1.1 (0.9-1.1); Prothrombin Time 11.9 Seconds (9.0-12.0)
[2023-01-06 22:21] LABS: Hematocrit (blood only) 40.5 % (42.0-52.0); Hemoglobin 13.6 g/dl (14.0-18.0); Mean Corpuscular Hemoglobin 29.8 pg (25.0-34.0); Mean Corpuscular Hgb Conc 33.6 g/dL (32.0-36.0); Mean Corpuscular Volume 88.6 fL (80.0-100.0); Mean Platelet Volume 11.1 fL (9.4-12.4); Platelet Count 191 K/uL (130-400); RDW Coefficient of Variation 14.3 % (11.5-14.5); RDW Standard Deviation 46.1 fL (36.4-46.3); Red Blood Count 4.57 M/uL (4.70-6.10); White Blood Count 6.74 K/ul (4.8-10.8)
[2023-01-06 22:51] LABS: Basophils # (auto) 0.02 K/uL (0-0.2); Basophils % (auto) 0.3 %; Immature Granulocytes # (auto) 0.02 K/uL (0.01-0.20); Immature Granulocytes % (auto) 0.3 %; Lymphocytes # (auto) 0.24 K/uL (1.2-3.4); Lymphocytes % (auto) 3.6 %; Monocytes # (auto) 0.17 K/uL (0.11-0.59); Monocytes % (auto) 2.5 %; Neutrophils # (auto) 6.09 K/uL (1.40-6.50); Neutrophils % (auto) 90.3 %
[2023-01-07] MEDS: methylPREDNISolone 40 MG in SYRINGE 0 ML IV SCH ×2 (00:46→13:02)
[2023-01-07 06:31] LABS: Hematocrit (blood only) 38.2 % (42.0-52.0); Hemoglobin 12.8 g/dl (14.0-18.0); Mean Corpuscular Hemoglobin 29.5 pg (25.0-34.0); Mean Corpuscular Hgb Conc 33.5 g/dL (32.0-36.0); Mean Platelet Volume 10.6 fL (9.4-12.4); Platelet Count 177 K/uL (130-400); RDW Coefficient of Variation 14.3 % (11.5-14.5); RDW Standard Deviation 46.2 fL (36.4-46.3); Red Blood Count 4.34 M/uL (4.70-6.10)
[2023-01-07 06:54] LABS: Anion Gap 5 (3-11); BUN Creatinine Ratio 17.5 (10-20); Blood Urea Nitrogen 10 mg/dl (6-23); Carbon Dioxide 25 mmol/L (21-32); Chloride 108 mmol/L (98-107); Creatinine Clr Calc Pharmacy 172.3 ml/min; Est GFR (African American) > 150.0 ml/min; Est GFR (Non-African American) 134.9 ml/min; Glucose 107 mg/dl (70-99(Fasting)); Magnesium 2.3 mg/dl (1.7-2.4); Phosphorus 1.7 mg/dl (2.5-4.9); Potassium 3.9 mmol/L (3.5-5.1); Sodium 138 mmol/L (136-145)
[2023-01-07] MEDS: RASPBERRY SYRUP 5 ML UDP PO SCH (08:50)
[2023-01-07] MEDS: HYDROCORTISONE 2.5% CR 30 GM TUBE EXT SCH (08:50)
[2023-01-07] MEDS: URSODIOL PO SCH (08:50)
[2023-01-07] MEDS: CETIRIZINE HCL 10 MG TABLET PO SCH (08:50)
[2023-01-07] MEDS: sulfaSALAzine 500 MG TABLET PO SCH (08:51)
[2023-01-07] MEDS: POT PHOSPHATE MONOBASIC W/ SOD TAB PO SCH ×2 (08:56→13:02)
[2023-01-07] MEDS: FAMOTIDINE 20 MG in SYRINGE 3 ML IV SCH (08:56)
[2023-01-07] MEDS: VANCOMYCIN HCL 125 MG/2.5ML SOLN PO SCH (08:57)
--- NOTE | 2023-01-07 12:54 | Dermatology Consultation ---
Date of Consultation January 07, 2023 Assessment & Plan (1) Hypersensitivity reaction: Present on Admission?: Yes Plan History and exam is c/w a simple exanthematous adverse drug reaction secondary to his Shingrix vaccine. There are not clinical signs to suggest a vasculitis process related to his underlying autoimmune conditions. Recommend the followin) Avoid further Shingrix. 2) Transition IV solumedrol to oral prednisone taper over 12-14 days at time of discharge. 3) Continue OTC antihistamines (i.e. benadryl) as needed for any residual itching. 4) D/w patient and parents that it may take 1-2 weeks for eruption to completely resolve. Also discussed the potential for some desquamating scale. Keep skin moisturized. 5) Okay to discharge from a dermatology standpoint. Thanks for the consult. Call with questions. History of Present Illness Reason for Consultation: Rash Requesting Physician: Oswald Butler MD Attending Physician: Oswald Butler MD History of Present Illness Patient is a 32 y/o WM admitted to [facility] on 01/05/2023 for worsening rash and low-grade fever. He has a pertinent past medical history for ulcerative colitis, progressive sclerosing cholangitis, polyarthralgia/enteropathic arthritis, asthma, IBS, C. difficile on chronic suppression and chronic anemia. Patient is preparing to start Xeljanz treatment for his autoimmune diseases. On 12/31/2022, he received the first injection of Shingrix vaccine prior to starting Xeljanz. Patient reports that on the wire welder of 01/02/2023 he awoke with some red, itchy patches on the upper trunk and arms. They gradually spread over the next 24 hours to involve more areas of the trunk and extremities. On 01/03/2023 he was seen by his PCP and started on hydroxyzine, but this was not effective. By 01/05/2023 he has started to feel fatigue and was noticed to have low-grade fever at home. He also felt like he had some swelling of his scalp and neck. He presented to the ED on 01/05/2023 and was treated in the ED with IV Solu-Medrol and Benadryl. He denies any itching, burning or pain associated with the skin currently. He still feels like he has developed few new areas, but some others on the feet are starting to fade. He has not been febrile since admission. He denies any irritation in the eyes or sores in the mouth. He denies any blistering on the skin. He currently is feeling fairly well. He denies any new medications or infections prior to onset of his rash. He is currently being treated with IV solumedrol 40mg q12 hours and hydrocortisone 2.5% cream topically. No other complaints today. Allergies Allergy/AdvReac Type Severity Reaction Status Date / Time vaccine adjuvant system, Allergy Severe Rash Verified 01/05/23 22:27 AS01B liposomal [From Shingrix (PF)] varicella-zoster virus Allergy Severe Rash Verified 01/05/23 22:27 glycoprotein E, recombinant [From Shingrix (PF)] Home Medications Medication Instructions Recorded Confirmed Type ursodiol 250 mg tablet 500 mg PO QAM 01/05/21 01/05/23 History calcium carbonate 600 mg-vitamin 2 tab PO DAILY 12/02/22 01/05/23 History D3 10 mcg (400 unit) tablet (Calcium 600 + D(3)) cetirizine 10 mg tablet (Zyrtec) 10 mg PO DAILY 12/02/22 01/05/23 History ursodiol 250 mg tablet 250 mg PO QPM 12/02/22 01/05/23 History vancomycin 125 mg capsule 125 mg PO DAILY 12/02/22 01/05/23 History sulfasalazine 500 mg tablet See Taper PO BID #120 tabs 12/04/22 01/05/23 Rx (Azulfidine) Patient History Medical History Back pain Clostridium difficile carrier Diarrhea Elevated LFTs Fecal urgency Frequent bowel movements GERD (gastroesophageal reflux disease) Osteoporosis Polyarthralgia PSC (primary sclerosing cholangitis) Septic arthritis Ulcerative colitis Unintentional weight loss Surgical History History of cholecystectomy History of colonoscopy History of ERCP History of esophagogastroduodenoscopy (EGD) History of oral surgery bone graft with dental implant History of wisdom tooth extraction Family History Grandmother Diabetes Other No family history of adverse response to anesthesia Social History Smoking Status: Never smoker Second Hand Exposure: No; Do You Dip or Chew Tobacco: No; Hx Alcohol Use: No Hx Substance Use: No Preferred Language: Norwegian Communication Ability: Effective Ultrasonic Cleaner Required: No Beliefs That Will Affect Care: None Current Living Situation: Parent Current Living Situation Comment: with mother Altagracia Other Information That Helps Us Care for You: No Feels Safe at Home: Yes Safety Concerns: Feels Safe At This Time Assistive Devices: None Review of Systems Review of Systems: All systems reviewed & are unremarkable except as noted in Subjective Physical Exam Physical Exam: General Appearance:Well developed, well-nourished and in no acute distress Psych:Alert, Oriented and Appropriate Skin Type:2 Scalp/Hair:pink/orange scaly thin plaques Face:pink/orange scaly thin plaques involving the periauricular skin, nasolabial folds; no facial edema Eyelids/Ocular Mucosa: no abnormalities noted Lips/Teeth/Gums: no abnormalities noted Neck: confluent, blanchable erythematous patches Right Lower Extremity:confluent, blanchable erythematous patches on the thigh, proximal calf Left Lower Extremity:confluent, blanchable erythematous patches on the thigh, proximal taina Back:confluent, blanchable erythematous patches Buttocks/Groin/Genitalia: not examined Right Upper Extremity:confluent, blanchable erythematous patches Left Upper Extremity:confluent, blanchable erythematous patches Chest/Breast/Axillae:confluent, blanchable erythematous patches Abdomen:confluent, blanchable erythematous patches Nails: no abnormalities noted Other exam notes: No head/neck lymphadenopathy Results & Data Vital Signs (Past 12 Hours) Vital Signs Temp Pulse Pulse Resp BP Pulse Ox O2 Del Method 01/07/23 11:55 36.8 C 110 H 18 114/80 98 Room Air 01/07/23 09:46 74 01/07/23 08:01 36.8 C 118 H 16 118/75 100 Room Air 01/07/23 03:10 36.4 C L 73 18 110/68 98 Room Air Laboratory Results 01/07/23 01/07/23 01/06/23 Range/Units 06:09 06:09 21:23 WBC 6.20 (4.8-10.8) K/ul RBC 4.34 L (4.70-6.10) M/uL Hgb 12.8 L (14.0-18.0) g/dl Hct 38.2 L (42.0-52.0) % MCV 88.0 (80.0-100.0) fL MCH 29.5 (25.0-34.0) pg MCHC 33.5 (32.0-36.0) g/dL RDW Std Deviation 46.2 (36.4-46.3) fL RDW Coeff of Farzana 14.3 (11.5-14.5) % Plt Count 177 (130-400) K/uL MPV 10.6 (9.4-12.4) fL Immature Gran % (Auto) % Neut % (Auto) % Lymph % (Auto) % [place] % (Auto) % Eos % (Auto) % Baso % (Auto) % Neut # (Auto) (1.40-6.50) K/uL Lymph # (Auto) (1.2-3.4) K/uL [place] # (Auto) (0.11-0.59) K/uL Eos # (Auto) (0-0.50) K/uL Baso # (Auto) (0-0.2) K/uL Immature Gran # (Auto) (0.01-0.20) K/uL PT 11.9 (9.0-12.0) Seconds INR 1.1 (0.9-1.1) Sodium 138 (136-145) mmol/L Potassium 3.9 (3.5-5.1) mmol/L Chloride 108 H (98-107) mmol/L Carbon Dioxide 25 (21-32) mmol/L Anion Gap 5 (3-11) BUN 10 (6-23) mg/dl Creatinine 0.57 L (0.6-1.4) mg/dl Est Cr Clr Drug Dosing 172.3 ml/min Est GFR ( Amer) > 150.0 ml/min Est GFR (Non-Af Amer) 134.9 ml/min BUN/Creatinine Ratio 17.5 (10-20) Glucose 107 H (70-99(Fasting)) mg/dl Calcium 8.0 L (8.6-10.3) mg/dl Phosphorus 1.7 L (2.5-4.9) mg/dl Magnesium 2.3 (1.7-2.4) mg/dl Blood Type Antibody Screen 01/06/23 01/06/23 Range/Units 21:23 21:23 WBC 6.74 (4.8-10.8) K/ul RBC 4.57 L (4.70-6.10) M/uL Hgb 13.6 L (14.0-18.0) g/dl Hct 40.5 L (42.0-52.0) % MCV 88.6 (80.0-100.0) fL MCH 29.8 (25.0-34.0) pg MCHC 33.6 (32.0-36.0) g/dL RDW Std Deviation 46.1 (36.4-46.3) fL RDW Coeff of Farzana 14.3 (11.5-14.5) % Plt Count 191 (130-400) K/uL MPV 11.1 (9.4-12.4) fL Immature Gran % (Auto) 0.3 % Neut % (Auto) 90.3 % Lymph % (Auto) 3.6 % [place] % (Auto) 2.5 % Eos % (Auto) 3.0 % Baso % (Auto) 0.3 % Neut # (Auto) 6.09 (1.40-6.50) K/uL Lymph # (Auto) 0.24 L (1.2-3.4) K/uL [place] # (Auto) 0.17 (0.11-0.59) K/uL Eos # (Auto) 0.20 (0-0.50) K/uL Baso # (Auto) 0.02 (0-0.2) K/uL Immature Gran # (Auto) 0.02 (0.01-0.20) K/uL PT (9.0-12.0) Seconds INR (0.9-1.1) Sodium (136-145) mmol/L Potassium (3.5-5.1) mmol/L Chloride (98-107) mmol/L Carbon Dioxide (21-32) mmol/L Anion Gap (3-11) BUN (6-23) mg/dl Creatinine (0.6-1.4) mg/dl Est Cr Clr Drug Dosing ml/min Est GFR ( Amer) ml/min Est GFR (Non-Af Amer) ml/min BUN/Creatinine Ratio (10-20) Glucose (70-99(Fasting)) mg/dl Calcium (8.6-10.3) mg/dl Phosphorus (2.5-4.9) mg/dl Magnesium (1.7-2.4) mg/dl Blood Type O Positive Antibody Screen NEGATIVE Diagnostic Findings Imaging and microbiology reviewed in [facility]. Medications Administered MAR reviewed in [facility]. PG Care Time/CCT Total # of Minutes Spent Total Time Spent with Patient: Total time spent is greater than 50% in coordination of care (as documented) at patient's floor/unit and/or counseling patient: Coding Level of Care Code 88725 IN/OBS CONSULT LVL 2,35M Diagnoses Hypersensitivity reaction T78.40XA Encounter type: initial encounter (1) Hypersensitivity reaction Encounter type: initial encounter Qualified Code(s): T78.40XA - Allergy, unspecified, initial encounter
--- NOTE | 2023-01-07 14:33 | Discharge Summary ---
Date of Service January 07, 2023 Admission HPI Per Admitting Provider History obtained from patient, family, and records. Medical history significant for ulcerative colitis, primary sclerosing cholangitis, polyarthralgia/enteropathic arthritis as per records, bronchial asthma, IBS (diarrhea predominant ), history C. difficile on chronic suppression Rx, chronic anemia (baseline hemoglobin of 13). Recent confinement last month for polyarthralgia attributed to arthritis of inflammatory bowel disease. Patient discharged on sulfasalazine Rx. Patient received Shingrix vaccine last week in preparation for Xeljanz Rx for patient's autoimmune disease. Few days ago, patient noted painful mildly pruritic rash gradually spreading all over his body. No headache, no chest pain, no SOB, no abdominal pain, no dysuria, no diarrhea symptoms. Poor appetite. Patient seen at PCPs office yesterday. Hydroxyzine prescribed for urticaria. Worsening symptoms at home and patient noted to be sleepy. Patient denies visual symptoms. Patient directed to ER for evaluation. Solu-Medrol, Benadryl, famotidine, Cefepime administered at the ER. Patient currently feels much better and rash improving as per family. Medical History as above Surgical History : Cholecystectomy Family History : DM, heart disease Personal/Social history : Non-smoker, no EtOH intake, [employer] Admission Exam Per Admitting Provider GENERAL: Slightly uncomfortable, no respiratory distress SKIN: Pallor, generalized maculopapular rashes (some scaling noted on rash over circumoral area), warm HEENT: Pale palpebral conjunctivae, no ptosis, dry buccal mucosa NECK : Supple, no tenderness CHEST : CTA, no tenderness HEART : RRR, no obvious murmurs ABDOMEN: Some distention, nontender EXTREMITIES : No LE swelling/tenderness, no other conspicuous deformities noted NEUROLOGIC : Coherent, no facial asymmetry, no other gross focality Principal Diagnosis Hypersensitivity reaction Drug rash Discharge Exam GENERAL: Alert and oriented x3. NAD, on RA. HEENT: No pallor, no icterus. Pupils equal, round and reactive to light. Oral mucosa moist. NECK: No JVD, no neck masses. HEART: S1 and S2 heard. Regular rate and rhythm. No murmur, no gallop. RESPIRATORY SYSTEM: Normal AP diameter. No accessory muscle use. No wheezing, no crackles. ABDOMEN: Soft, bowel sounds present, nontender, no distention. CENTRAL NERVOUS SYSTEM: No facial droop. Speech is clear. Obeys simple commands. Moves extremities. EXTREMITIES: No edema, no erythema seen. Skin: extensive maculopapular rash, scaling noted circumoral area. Discharge Data Allergies Allergy/AdvReac Type Severity Reaction Status Date / Time vaccine adjuvant system, Allergy Severe Rash Verified 01/05/23 22:27 AS01B liposomal [From Shingrix (PF)] varicella-zoster virus Allergy Severe Rash Verified 01/05/23 22:27 glycoprotein E, recombinant [From Shingrix (PF)] Consultations 01/05/23 20:52 ED Decision to Admit Stat 01/06/23 21:49 Consult Dermatology Routine Hospital Course (1) Hypersensitivity reaction: Plan 32-year-old male with PMH of ulcerative colitis, PSC, polyarthralgia/enteropathic arthritis, bronchial asthma, IBS [diarrhea predominant], C. difficile on chronic suppression treatment, chronic anemia [baseline hemoglobin of 13] was recently admitted for polyarthralgia attributed to arthritis of inflammatory bowel disease and was discharged on sulfasalazine treatment who received Shingrix vaccine on 12/31 and started developing rash on 01/02 that was spreading throughout the body with itchiness/uncomfortable sensation. Of note, patient received Shingrix vaccine last week in preparation for Xeljanz treatment for his autoimmune disease. Patient denies any headache or chest pain or shortness of breath or flulike illness or abnormal bowel habits. Patient denied any shortness of breath/wheezing/abdominal pain. He is being managed for the following: Hypersensitivity reaction Drug rash Patient presented with spreading maculopapular rash [see above] likely secondary to Shingrix vaccination Patient noted to have fever at presentation, likely secondary to drug reaction. Procalcitonin was negative. Was monitored off antibiotic without fever. Patient received Solu-Medrol, Benadryl/famotidine in the ED with some relief. Shingrix vaccine added to patient's allergy/ADR list. At bedside exam, patient with improving comfort with regard to rash but it has not gone down per patient. Derm evaled, prednisone taper for 14 days, rash will take about 1-2 weeks to resolve. Pt being discharged on prednisone taper, as needed Benadryl, famotidine, can use [id number] cetirizine. Plan of care communicated to the patient, who verbalized understanding. Patient is hemodynamically stable and would like to go home. Patient reports chronic elevation in heart rate especially while in the hospital. Denies any chest pain or shortness of breath. Other chronic medical conditions: Ulcerative colitis/PSC: Patient follows [facility]arc[facility]ING[facility] contemplated for autoimmune disease. Polyarthralgia/enteropathic arthritis: Continue with sulfasalazine IBS [diarrhea-predominant, chronic anemia: Continue supportive measures as appropriate. Full code Patient being discharged home with following instruction at the point of discharge: Follow-up with your primary care physician within a week time and likely you will need labs CBC/CMP/magnesium/phosphorus. Follow-up with your rheumatology/GI doctor as prior. Avoid further Shingrix vaccine in future. You can use [id number] Benadryl as needed for itching. You will be discharged on prednisone taper over about 2 weeks time. Apply moisturizing lotion over the dry areas of his skin. Please make sure that you are able to get your medications today by calling your pharmacy before you leave the hospital so that your treatment continuity is not broken. Home Health Attestation I certify that this patient is under my care and that I, or a physicians life enrichment assistant working with me, had a face to-face encounter that meets the home health [id number] encounter requirements with this patient. The encounter with the patient was in whole, or in part, for the following medical condition, which is the primary reason for home health care (list medical condition): I certify that, based on my findings, the following services are medically necessary home health services: My clinical findings support the need for the above services because: Further, I certify that my clinical findings support that this patient is ho mebound (i.e. absences from home require considerable and taxing effort and are for medical reasons or shinto services or infrequently or of short duration when for other reasons) because: Certification for Home Health Services: Based on the above findings, I certify that this patient is confined to the home and needs intermittent fpc care, physical therapy and/or speech therapy or continues to need occupational therapy. The patient is under my care, and I have initiated the establishment of the plan of care. This patient will be followed by a physician who will periodically review the plan of care. Total Time Total Time Spent Total Time Spent (In Minutes): 45 Discharge Plan Discharge Items Patient Disposition: Home - Self-Care Reason For Visit: HYPERSENSITIVITY RXN, LOW MAG Discharge Diagnosis: Hypersensitivity reaction Drug rash Condition on Discharge: Fair Activity: Resume your previous activity Non-emergency contact: Primary Care Provider Call non-emergency contact if: you have any medication questions Follow-up/Referrals: Michael Branch DO [Primary Care Provider] - Diet: Low Fat Addtl Attending Provider Instructions: Follow-up with your primary care physician within a week time and likely you will need labs CBC/CMP/magnesium/phosphorus. Follow-up with your rheumatology/GI doctor as prior. Avoid further Shingrix vaccine in future. You can use [id number] Benadryl as needed for itching. You will be discharged on prednisone taper over about 2 weeks time. Apply moisturizing lotion over the dry areas of his skin. Please make sure that you are able to get your medications today by calling your pharmacy before you leave the hospital so that your treatment continuity is not broken. Pending Studies at Discharge: Yes Stand-Alone Forms: My [facility] [employer], Smoking Cessation Medications and DC Order Prescriptions: New diphenhydramine HCl [Benadryl] 25 mg Capsule 25 mg PO QID PRN (Reason: itching) 7 Days Qty: 28 0RF Anti-Itch(diphenhyd) with Zinc 2-0.1 % Cream 1 applic EXT QID PRN (Reason: itching) Qty: 35 0RF famotidine 20 mg tablet 20 mg PO BID 7 Days Qty: 14 0RF prednisone 10 mg tablet 10 mg PO UD 15 Days Qty: 41 0RF Rx Instructions: 40 mg daily x 5 days, 30 mg daily x 4 days, 20 mg daily x 3 days, 10 mg daily x 2 days, 5 mg daily x 1 day and stop Continued ursodiol 250 mg Tablet 500 mg PO QAM vancomycin 125 mg capsule 125 mg PO DAILY ursodiol 250 mg tablet 250 mg PO QPM cetirizine [Zyrtec] 10 mg Tablet 10 mg PO DAILY calcium carbonate-vitamin D3 [Calcium 600 + D(3)] 600 mg-10 mcg (400 unit) Tablet 2 tab PO DAILY sulfasalazine [Azulfidine] 500 mg Tablet See Taper PO BID Qty: 120 0RF Taper: Taper, Blank 500 mg TWICE A DAY for 7 Days 1,000 mg TWICE A DAY for 7 Days 1,500 mg TWICE A DAY for 30 Days Discharge Orders: Discharge Order (Routine); Ordered 01/07/23 Ordered By: Oswald Butler Admission Data Admit Date/Time: 01/05/23 22:32 Attending Provider: Oswald Butler Admit Provider: Andre Conde Primary Care Provider: Michael Branch Other Providers: Andre Conde ; Joe Bangura
[2023-01-09 02:24] LABS: Babesia microti DNA Not Detected (Not Detected)
[2023-01-12 00:38] LABS: Ehrlichia chaff IgG Ab <1:64 (<1:64); Ehrlichia chaff IgM Ab <1:20 (<1:20)
== END 2023-01-07 15:04 | disposition home or self-care (01) | DRG 607 ==
LOC: ED 19:16 → 2E 22:32